=== PATIENT | female | born 1975 | race Caucasian/White ===

== ENCOUNTER → 2020-09-17 08:30 | Outpatient (CLI) | payer OTHER, SELFPAY ==
--- NOTE | 2020-09-17 08:35 | MM_ITS ---
PROCEDURE: MM DIG SCREENING MAMM BI W/CAD Digital Breast Tomosynthesis Included CLINICAL INDICATION: SCREENING MAMM There is no personal or family history of breast cancer. COMPARISON: This is a screening baseline exam, patient without complaints TECHNIQUE: Standard CC and MLO images and 3D Tomosynthesis was obtained. R2 CAD reviewed. FINDINGS: Prominent somewhat heterogenic fibroglandular densities are seen in the central portions of both breasts and the findings are fairly symmetrical and bilateral. There is a benign-appearing calcification left breast. There is a small benign-appearing nodular density upper-outer quadrant left breast with a small notch like contour suggesting a small intramammary node. There is no suspicious lesion and no suspicious microcalcifications. IMPRESSION: Moderate breast density with no suspicious lesions seen BI-RAD Category: 2 Benign Finding(s) FOLLOW-UP: 1YR 1 Year Follow-up (A letter has been sent to the patient regarding results of the study.) Dictated by: Dr. Neto Ugalde MD 09/18/2020 08:00 Dr. Neto Ugalde MD in [place] 09/18/2020 08:00
== END ==
PROVIDERS: PCP Nurse Practitioner Family; Visit Provider Nurse Practitioner Family
DX: Z12.31 Encounter for screening mammogram for malignant neoplasm of breast (principal)
CPT/HCPCS: 77063; 77067

== ENCOUNTER 2020-10-13 11:18 | Emergency (ER) | payer OTHER, SELFPAY ==
[2020-10-13 11:31] VITALS: BP 172/110; PULSE 82; RESP 16; TEMP 37; O2SAT 99; BMI 22.7
--- NOTE | 2020-10-13 12:06 | HMH.EDUTC ---
[facility] [place] Clinical Impression: Laceration Disposition: Home, Self-Care Condition on Discharge: Good Instructions: DI for Laceration Repair, DI for Laceration Repair -- Simple Additional Instructions: follow up in 10 days to have sutures removed watch for s/s of infection return if any issues Prescriptions: cephALEXin [Cephalexin 500mg Tab] 500 mg PO BID 7 Days #14 tab Prescription Printed Referrals: Deepika Delvalle [Primary Care Provider] - Time of Disposition: 12:13 Medical Decision Making - Rajat Inquiry Pt receiving controlled substance: No Vital Signs: 10/13/20 11:31 Temperature 98.6 F Temperature Source Oral Pulse Rate [Right] 82 Respiratory Rate 16 Blood Pressure [Right Arm] 172/110 H Blood Pressure Mean [Right Arm] 130 Blood Pressure Source [Right Arm] Automatic Cuff Blood Pressure Position [Right Arm] Sitting 02 Sat by Pulse Oximetry 99 [facility] [place] HPI - General Chief complaint: Urgent Treatment Center Stated complaint: Cut left hand Time Seen by Provider: 10/13/20 12:06 Mode of Arrival: Ambulatory Source of Information: Patient Limitations: No Limitations Description of Symptoms (Recalled from Triage Doc. by RN): pt has a laceration on her left palm about an inch long. she was washing dishes and was cut with a knife. edges are clean and appears that the cut is a few mm deep. HEENT Symptoms (Recalled from RN notes): No Resp Symptoms (Recalled from RN notes): No Skin Symptoms (Recalled from RN notes): Yes (L palm laceration) MS Symptoms (Recalled from RN notes): No Functional Status (Recalled from RN notes): na - History of Present Illness Provider Complaint: 45 yr old female presents for a laceration on her left palm about an inch long. she was washing dishes and was cut with a knife. edges are clean and appears that the cut is a few mm deep. - Related Data Previous Rx's Medication Instructions Recorded cephALEXin [Cephalexin 500mg Tab] 500 mg PO BID 7 Days #14 tab 10/13/20 - Worker's Comp Is this a Worker's Comp case?: No [facility] History - Hepatitis A Screen Drug use history?: No High risk sexual behaviors?: No History of sexually transmitted infection?: No Currently employed?: No Childcare worker?: No Do you have indoor plumbing?: Yes Do you have electricity?: Yes Attestation statement:: This patient has been screened for Hepatitis A risk factors. I have reviewed the patient's past medical history: Yes - Social History Smoking Status: Never smoker Alcohol Intake: never Occupational Status: employed ROS Obtained: Yes Systems reviewed as appropriate & no additional complaints - Constitutional Constitutional: Reports system reviewed and no additional complaints, except as docu, Denies fever(s) - Eyes Eyes: Reports system reviewed and no additional complaints, except as docu, Denies blurry vision - ENT Ears, Nose, Mouth, and Throat: Reports system reviewed and no additional complaints, except as docu, Denies sore throat - Cardiovascular Cardiovascular: Reports system reviewed and no additional complaints, except as docu, Denies chest pain - Respiratory Respiratory: Reports system reviewed and no additional complaints, except as docu, Denies coughing up blood - Gastrointestinal Gastrointestingal: Reports: system reviewed and no additional complaints, except as docu. Denies: nausea, vomiting - Genitourinary Female Genitourinary: Reports system reviewed and no additional complaints, except as docu - Musculoskeletal Musculoskeletal: Reports system reviewed and no additional complaints, except as docu, Denies joint pain - Integumentary/Breasts Skin/Breast: Reports system reviewed and no additional complaints, except as docu, Reports as per HPI, Reports other - Neurologic Neurologic: Reports system reviewed and no additional complaints, except as docu, Denies lack of coordination - Endocrine Endocrine: Reports system reviewed and no additional complain
[2020-10-13 12:26] VITALS: BP 159/103; PULSE 81; RESP 16; TEMP 36.6
== END 2020-10-13 12:26 | disposition home or self-care (01) ==
PROVIDERS: Emergency Provider Nurse Practitioner Family; PCP Nurse Practitioner Family
DX: S61.412A Laceration without foreign body of left hand, initial encounter (principal); W26.0XXA Contact with knife, initial encounter; Y92.010 Kitchen of single-family (private) house as the place of occurrence of the external cause; Z23 Encounter for immunization
CPT/HCPCS: 12001; 90471; 96372; 99202; G0463

== ENCOUNTER → 2021-01-02 12:08 | Outpatient (CLI) | payer OTHER, SELFPAY ==
--- NOTE | 2021-01-02 12:16 | XR_ITS ---
PROCEDURE: XR KNEE RT 3V CLINICAL INDICATION: PAIN IN RT KNEE COMPARISON: No exams were available for comparison FINDINGS: No fracture or dislocation. No lytic or blastic change. There is normal mineralization. The joint spaces are well-preserved. No significant degenerative/arthritic changes. No erosive changes evident. Other findings:Tiny joint effusion. IMPRESSION: Tiny joint effusion. No acute fracture or dislocation. Mild prepatellar soft tissue swelling. Dictated by: Rajendra Casarez MD 01/02/2021 12:33 Rajendra Casarez MD in [place] 01/02/2021 12:33
--- NOTE | 2021-01-02 12:16 | XR_ITS ---
PROCEDURE: XR TIBIA FIBULA RT 2V CLINICAL INDICATION: PAIN IN RT LOWER LEG COMPARISON: No exams were available for comparison FINDINGS: No fracture or dislocation. No lytic or blastic change. There is normal mineralization. The joint spaces are well-preserved. No significant degenerative/arthritic changes. No erosive changes evident. Other findings:Mild soft tissue swelling at the injury site. IMPRESSION: Mild soft tissue swelling with no acute fracture or dislocation. Dictated by: Rajendra Casarez MD 01/02/2021 12:34 Rajendra Casarez MD in [place] 01/02/2021 12:34
== END ==
PROVIDERS: PCP Nurse Practitioner Family; Visit Provider Anesthesiology Pain Medicine
DX: M25.561 Pain in right knee (principal); M79.661 Pain in right lower leg
CPT/HCPCS: 73562; 73590

== ENCOUNTER → 2023-03-25 07:57 | Outpatient (CLI) | payer OTHER, SELFPAY ==
--- NOTE | 2023-03-25 08:03 | MM_ITS ---
PROCEDURE INFORMATION: Exam: MG Bilateral Screening 3D Mammography Exam date and time: 03/25/2023 7:54 AM Age: 48 years old Clinical indication: Screening mammogram TECHNIQUE: Imaging protocol: Bilateral Screening tomosynthesis and 2D mammography including computer-aided detection (CAD) when performed. COMPARISON: MG MM DIG SCREENING MAMM BI W/CAD 09/17/2020 8:33 AM FINDINGS: MAMMOGRAPHY: Breast composition: The breast is heterogeneously dense, which may obscure small masses. Mass: Stable benign-appearing subcentimeter nodules are present in the bilateral breast. No new or morphologically suspicious nodule has developed to suggest malignancy. Architectural distortion: No new or suspicious architectural distortion. Calcifications: No new or suspicious calcifications are present Asymmetric density: No new or suspicious asymmetric density is present Skin thickening: None. Axillary adenopathy: None. IMPRESSION: No mammographic evidence of malignancy. Recommend annual screening mammography unless otherwise clinically indicated. ASSESSMENT: BI-RADS category 2: Benign
== END ==
PROVIDERS: PCP Nurse Practitioner Family; Visit Provider Nurse Practitioner Family
DX: Z12.31 Encounter for screening mammogram for malignant neoplasm of breast (principal)
CPT/HCPCS: 77063; 77067

== ENCOUNTER 2023-11-19 11:40 | Outpatient (CLI) | payer OTHER, SELFPAY ==
--- NOTE | 2023-11-19 11:48 | XR_ITS ---
FINAL REPORT TECHNIQUE: 5 views CLINICAL HISTORY: SPONDYLOSIS WITHOUT MYELOPATHY FINDINGS: There is no fracture present. There is no malalignment. There are no significant degenerative changes. IMPRESSION: No acute process. Reviewed, Interpreted and Dictated by William Plaza MD Transcribed by Nicole Burks Authenticated and [facility]
== END 2023-11-19 23:59 | disposition home or self-care (01) ==
LOC: RAD 11:42
PROVIDERS: PCP Nurse Practitioner Family; Visit Provider Pain Medicine Interventional Pain Medicine
DX: M47.816 Spondylosis without myelopathy or radiculopathy, lumbar region (principal); M54.16 Radiculopathy, lumbar region
CPT/HCPCS: 72110

== ENCOUNTER 2025-03-04 13:03 | Inpatient (IN) | payer OTHER, SELFPAY ==
--- OUTSIDE RECORDS SUMMARY | 2020-12-25 13:31 | XMS_ITS | Encounter Summary ---
Author Organization [facility] Address [address] [place] [address] Care Team Providers Care Straight Pin Making Machine Operator Name Role Phone Deepika Delvalle APRN Primary Care Provider Reason for Visit * Diagnostic Imaging (Routine) - Closed Specialty Diagnoses / Procedures Referred By Rayshawn t Referred To Contact Radiology Diagnoses Simple goiter Procedures US Thyroid Gemma Catalan MD [address] [place] [address] Phone: tel: fax: [facility] [address] [place] [address] Phone: tel: fax: Referral ID Status Reason Start Date Expiration Date Visits Re quested Visits Authorized [id number] Closed 12/25/2020 12/25/2021 1 1 Encounter Details Date Type Department Care Team (Late st Contact Info) Description 12/25/2020 1:31 PM EDT Hospital Encounter [facility] [address] [place] [address] Social History Tobacco Use Types Packs/Day Years Used Date Smoking Tobacco: Never Passive Smoke Exposure: Never Smokeless Tobacco: Never Alcohol Use Standard Drinks/Week Comments No 0 (1 standard drink = 0.6 oz pur e alcohol) Comments No Sex and Gender Information Value Date Recorded Sex Assigned at Not on file Legal Sex Female 11:50 AM EDT Gender Identity Not on file Sexual Orientation Not on file documented as of this encounter Plan of Treatment Upcoming Encounters Date Type Department Care Team (Late st Contact Info) Description 10/10/2025 9:30 AM EDT Office Visit [facility] [address] [place] [id number] Rajendra Brito MD [address] [place] [address] 11/21/2025 9:30 AM EDT Office Visit [facility] [address] [place] [address] Gemma Catalan MD [address] [facility] [address] [place] [address] documented as of this encounter Goals Goal Patient Goal Type Associated Problems Recent Progress Patient-Stated? Author Specialty Pharmacy General Goal General On track( 025 10:47 AM EDT) Joleen Beebe, PharmD Note: Decrease in frequency and severity of migraines 01/02/22 - next step is Botox, but patient has not decided if she want to pursue that option, now that headaches are somewhat improving (has been under stress lately) 11/11/22 - headaches stable for past several months. On Average, Reduce: Frequency of migraines to < 15 per month. Symptom severity by 50 % within 4 hours of taking acute therapy. (Rizatriptan) Duration of migraines to < 4 hours. Baseline Values/Notes on Enrollment Frequency: daily Symptom Severity: moderate to severe Duration: 4 hours Date of Reassessment Notes on Progress Toward Above Goals 08/03/24 Dose was a week late last month, otherwise down to 5/month, 2 hour duration 01/24/25 Headaches well controlled. Down from daily to about 2 weekly documented as of this encounter Procedures Procedure Name Priority Date/Time Associated Diagnosis Comments US THYROID Routine 12/25/2020 1:31 PM EDT Thyromegaly documented in this encounter Results * US Thyroid (12/25/2020 1:31 PM EDT) Narrative SYSTEMGENERATED, DOCUMENTATION - 12/25/2020 1:31 PM EDT Please see performing physician's note for result. us Gemma Catalan MD [facility] ORDERABLES Final Result documented in this encounter Visit Diagnoses Not on filedocumented in this encounter Care Teams Straight Pin Making Machine Operator Relationship Specialty Start Date End Date Deepika Delvalle APRN [address] [place] [address] PCP - General 04/03/15 documented as of this encounter
--- OUTSIDE RECORDS SUMMARY | 2020-12-25 13:31 | XMS_ITS | Encounter Summary ---
Author Organization [facility] Address [address] [place] [address] Care Team Providers Care Call Center Analyst Name Role Phone Deepika Delvalle APRN Primary Care Provider Reason for Visit * Diagnostic Imaging (Routine) - Closed Specialty Diagnoses / Procedures Referred By Rayshawn t Referred To Contact Radiology Diagnoses Simple goiter Procedures US Thyroid Gemma Catalan MD [address] [place] [address] Phone: tel: fax: [facility] [address] [place] [address] Phone: tel: fax: Referral ID Status Reason Start Date Expiration Date Visits Re quested Visits Authorized [id number] Closed 12/25/2020 12/25/2021 1 1 Encounter Details Date Type Department Care Team (Late st Contact Info) Description 12/25/2020 1:31 PM EDT Hospital Encounter [facility] [address] [place] [address] Social History Tobacco Use Types [...] Description 10/10/2025 9:30 AM EDT Office Visit [facility] [address] [place] [phone] Rajendra Brito MD [address] [place] [address] 11/21/2025 9:30 AM EDT Office Visit [facility] [address] [place] [address] Gemma Catalan MD [address] [facility] [address] [place] [address] documented as of this encounter [...] note for result. us Gemma Catalan MD [facility] ORDERABLES Final Result documented in this encounter Visit Diagnoses Not on filedocumented in this encounter Care Teams Call Center Analyst Relationship Specialty Start Date End Date Deepika Delvalle APRN [address] [place] [address] PCP - General 04/03/15 documented as of this encounter
--- OUTSIDE RECORDS SUMMARY | 2024-12-14 04:45 | XMS_ITS ---
Author Organization [facility] Address [address] [place] [address] Care Team Providers Care Internet Database Specialist Name Role Phone Deepika Saeed APRN Primary Care Provider Un available Oscar Lewis II Unavailable zSelf, Referral Unavailable Unavailable Octavio Martinez Unavailable [phone] Allergies Allergen (clinical drug ingredient) Drug/Non Drug Allergy documented on EMR Reaction Allergy Type Onset Date Status naproxen stomach upset Drug Allergy Act gera Naproxen Sodium DS stomach upset Drug Allergy Active REASON FOR VISIT 2 Month Follow Up Medications Medication SIG (Take, Route, Frequency, Duration) Notes Start Date End Date Status montelukast 10 mg 1 tab(s) orally once a day; Duration: 30 day(s) 07/10/2022 Active pantoprazole 40 mg 1 tab(s) orally once a day; Duration: 30 day(s) 07/10/2022 Active amLODIPine 5 mg 1 tab(s) orally once a day; Duration: 30 day(s) 07/10/2022 Active escitalopram 10 mg 1 tab(s) orally once a day; Duration: 30 day(s) 11/26/2022 Active traZODone 50 mg as directed orally 11/26/2022 Active Diclofenac Sodium Topical 1% 2-4 grams to affected area applied topically 4 times a day; Duration: 30 day(s) Active levocetirizine 5 mg 1 tab(s) orally once a day (in the evening); Duration: 30 day(s) Active ciclopirox topical 8% 1 ashlie applied topically once a day; Duration: 24 week(s) 07/10/2022 Active Acetaminophen-Hydrocodon e Bitartrate 325 mg-7.5 mg 1 tab(s) orally 3 times a day; Duration: 28 days DO NOT FILL SOONER THAN 28 DAYS, (OK TO FILL EARLY, ONLY IF CLOSED) Active Cyclobenzaprine Hydrochloride 10 mg 1 tab(s) orally 3 times a day; Duration: 30 day(s) Active gabapentin 600 mg 1 tab(s) orally 2 times a day; Duration: 28 days DO NOT FILL SOONER THAN 28 DAYS, (OK TO FILL EARLY, ONLY IF CLOSED) Active Acetaminophen-Hydrocodon e Bitartrate 325 mg-7.5 mg 1 tab(s) orally 3 times a day; Duration: 28 days DO NOT FILL SOONER THAN 28 DAYS, (OK TO FILL EARLY, ONLY IF CLOSED) Active Encounters Encounter Location Date Provider Diagnosis [facility] [address] [place] [address] 12/14/2024 Octavio Martinez Migraine without aura, not intractable, without status migrainosus G43.009 ; Other retirement (current) drug therapy Z79.899 ; Spondylosis without myelopathy or radiculopathy, cervical region M47.812 ; Spondylosis without myelopathy or radiculopathy, lumbar region M47.816 ; Pain in right knee M25.561 and Pain in right lower leg M79.661 Assessments Encounter Date Diagnosis (ICD Code) Assessment Notes Treatment Notes Treatment Clinical Notes Section Notes 12/14/2024 Migraine without aura, not intractable, without status migrainosus (ICD-10 - G43.009) 08/23/2024 Alicia presents today for follow up visit and medication refill. Pain generators include lumbar and cervical spondylosis, lumbar radiculopathy, chronic migraine headaches, and thoracic outlet syndrome on the left. Pt completed HEP for 6 weeks and is still doing them. Continues to have low back and bilateral feet pain. Rates her pain a 5/10 scale. Weather changes increases pain. She continues to receive 50% pain reduction for approximately four hours with the Hydrocodone. She continues to take flexeril, gabapentin, and [place] with some relief. Denies adverse side effects or recent medical issues. Nhung and VINCENTS reviewed and are compliant. Refills and F/U in 2 months. 12/14/2024 Other terminal superintendent (current) drug therapy (ICD-10 - Z79.899) Primary pain generator is Lumbar Spondylosis, secondary pain generator is Cervical Spondylosis, Lumbar Radiculopathy, Migraine PAYTON's, chronic pain syndrome, thoracic outlet compression syndrome 08/23/2024 1 Refill [place] 7.5/325mg TID 2 Refill GBP 600mg BID 3 Refill Flexeril 10mg TID 4 Refill Voltaren gel 5 F/U 2 months 08/23/2024October presents today for follow up visit and medication refill. Pain generators include lumbar and cervical spondylosis, lumbar radiculopathy, chronic migraine headaches, and thoracic outlet syndrome on the left. Pt completed HEP for 6 weeks and is still doing them. Continues to have low back and bilateral feet pain. Rates her pain a 5/10 scale. Weather changes increases pain. She continues to receive 50% pain reduction for approximately four hours with the Hydrocodone. She continues to take flexeril, gabapentin, and [place] with some relief. Denies adverse side effects or recent medical issues. Nhung and VINCENTS reviewed and are compliant. Refills and F/U in 2 months. 12/14/2024 Spondylosis without myelopathy or radiculopathy, cervical region (ICD-10 - M47.812) 08/23/2024October presents today for follow up visit and medication refill. Pain generators include lumbar and cervical spondylosis, lumbar radiculopathy, chronic migraine headaches, and thoracic outlet syndrome on the left. Pt completed HEP for 6 weeks and is still doing them. Continues to have low back and bilateral feet pain. Rates her pain a 5/10 scale. Weather changes increases pain. She continues to receive 50% pain reduction for approximately four hours with the Hydrocodone. She continues to take flexeril, gabapentin, and [place] with some relief. Denies adverse side effects or recent medical issues. Nhung and VINCENTS reviewed and are compliant. Refills and F/U in 2 months. 12/14/2024 Spondylosis without myelopathy or radiculopathy, lumbar region (ICD-10 - M47.816) 08/23/2024October presents today for follow up visit and medication refill. Pain generators include lumbar and cervical spondylosis, lumbar radiculopathy, chronic migraine headaches, and thoracic outlet syndrome on the left. Pt completed HEP for 6 weeks and is still doing them. Continues to have low back and bilateral feet pain. Rates her pain a 5/10 scale. Weather changes increases pain. She continues to receive 50% pain reduction for approximately four hours with the Hydrocodone. She continues to take flexeril, gabapentin, and [place] with some relief. Denies adverse side effects or recent medical issues. Nhung and VINCENTS reviewed and are compliant. Refills and F/U in 2 months. 12/14/2024 Pain in right knee (ICD-10 - M25.561) 08/23/2024October presents today for follow up visit and medication refill. Pain generators include lumbar and cervical spondylosis, lumbar radiculopathy, chronic migraine headaches, and thoracic outlet syndrome on the left. Pt completed HEP for 6 weeks and is still doing them. Continues to have low back and bilateral feet pain. Rates her pain a 5/10 scale. Weather changes increases pain. She continues to receive 50% pain reduction for approximately four hours with the Hydrocodone. She continues to take flexeril, gabapentin, and [place] with some relief. Denies adverse side effects or recent medical issues. Nhung and VINCENTS reviewed and are compliant. Refills and F/U in 2 months. 12/14/2024 Pain in right lower leg (ICD-10 - M79.661) 08/23/2024October presents today for follow up visit and medication refill. Pain generators include lumbar and cervical spondylosis, lumbar radiculopathy, chronic migraine headaches, and thoracic outlet syndrome on the left. Pt completed HEP for 6 weeks and is still doing them. Continues to have low back and bilateral feet pain. Rates her pain a 5/10 scale. Weather changes increases pain. She continues to receive 50% pain reduction for approximately four hours with the Hydrocodone. She continues to take flexeril, gabapentin, and [place] with some relief. Denies adverse side effects or recent medical issues. Nhung and VINCENTS reviewed and are compliant. Refills and F/U in 2 months. Plan Of Treatment Medication Medication Name Sig Start Date Stop Date Notes Diclofenac Sodium Topical 1% 2-4 grams to affected area applied topically 4 times a day; Duration: 30 day(s) Acetaminophen-Hydrocodone Bitartrate 325 mg-7.5 mg 1 tab(s) orally 3 times a day; Duration: 28 days DO NOT FILL SOONER THAN 28 DAYS, (OK TO FILL EARLY, ONLY IF CLOSED) Cyclobenzaprine Hydrochloride 10 mg 1 tab(s) orally 3 times a day; Duration: 30 day(s) gabapentin 600 mg 1 tab(s) orally 2 times a day; Duration: 28 days DO NOT FILL SOONER THAN 28 DAYS, (OK TO FILL EARLY, ONLY IF CLOSED) Acetaminophen-Hydrocodone Bitartrate 325 mg-7.5 mg 1 tab(s) orally 3 times a day; Duration: 28 days DO NOT FILL SOONER THAN 28 DAYS, (OK TO FILL EARLY, ONLY IF CLOSED) Treatment Notes Assessment Notes Other terminal superintendent (current) drug therapy Primary pain generator is Lumbar Spondylosis, secondary pain generator is Cervical Spondylosis, Lumbar Radiculopathy, Migraine PAYTON's, chronic pain syndrome, thoracic outlet compression syndrome 08/23/2024 1 Refill [place] 7.5/325mg TID 2 Refill GBP 600mg BID 3 Refill Flexeril 10mg TID 4 Refill Voltaren gel 5 F/U 2 months Pending Test Test Name Order Date Urine Test ANALYZER 12/14/2024 Next Appt Details Follow Up: 2 Months, Reason: Provider Name:Oscar foreman, 04/19/2025 09:45:00 AM, [address], [address], [place], [address], Procedure Notes * Category Sub-Category Detail Notes PROVIDER ENCOUNTER AND OVERSIGHT Consult Performed By: Salvador RENTERIA-Guillermina FERNANDEZ 08/23/2024 9:41:16 AM > collaborated treatment plan with Oscar trevino M.D., supervising physician who was present in office during consultation Progress Notes * October FDOB:1975 (50 yo F)Acc No.[id number]:12/14/2024 FollowUP Patient: Cassidy BRADYOctober Provider: Yaw Martinez MD :1975 A ge:49 Y S ex:Female Date:12/14/2024 Address:[address] [place], [place] [address] [address] [phone] Pcp:Deepika Delvalle APRN - Subjective: * Chief Complaints: * 1 . 2 Month Follow Up. * HPI: T ODAYS PAIN EVALUATION: 49 year old female presents with c/o MEDICATION FOLLOW UP: T he patient is currently prescribed [place] 7.5/325 mg TID and Gabapentin 600mg BID which provides 50% relief of pain symptoms for 4 hours. The last dose was taken 0 08/23/2024 G BP was taken 06/20/2024 D juanjose side effects. CURRENT PAIN SYMPTOMS: L ocation of Worst Pain: M id-Back, A dditional Location of Pain: F eet, P ain Frequency: c onstant, P ain Description: a eleonora, stabbing, tingling, A verage Pain Score VAS: 5 , P ain Exacerbation: staying g in one position standing, P ain Alleviation: m edications hot tub, A DL/Quality of Life Interference: d aily chores, mood movement. P AIN MANAGEMENT TREATMENT HISTORY: IMAGING HISTORY: 0 01/02/2021 XR Tibia Fibula RT:Mild soft tissue with no acute fracture or dislocation. 0 01/02/2021 XR RT KNEE:Tiny joint effusion. No acute fracture or dislocation. Mild prepatellar soft tissue swelling. 0 11/19/2023 XR LUMBAR-No acute process . P REVIOUS INJECTION\PROCEDURE HISTORY:? D enmaldonado . P HYSICAL/AQUA THERAPY/DME/OTHER HISTORY: 2 020: Massage Therapy 2 021: Physical therapy 2 024 Patient continues a prescribed home exercise program 3-5 times per week (stretches and mild yoga) as of 11/12/2023 . P ERTINENT SURGICAL EVALUATIONS/SPECIALIST CONSULTS Bruna Nichole, neurology, [place], [place]. Dr. Melo, podiatry, for Tarsal Tunnel Syndrome . P REVIOUS PAIN CLINIC CARE: Bruna sow . Dusty BARRON OF INITIAL EVALUATION: 1 New patient consult referred by Self f or chrtonic back pain onset in 2004 without incident Alicia presents for follow up. Primary pain generator is Lumbar Spondylosis, secondary pain generator is Cervical Spondylosis, Lumbar Radiculopathy, Migraine PAYTON's, chronic pain syndrome. Continues to use [place] 5mg TID and GBP 600mg TID with some relief. No side effects or impairments noted with the medication other than weight gain from the gabapentin. Interested in re-scheduling the MBB for her Lumbar spine. Will schedule this at checkout. Patient denies any recent hospitalizations, surgeries, or other consults. NHUNG report reviewed and is appropriate. Prior UDS reviewed. No prior abnormal urine drug screens noted. Discussed with patient the benefits and risk associated with taking pain medication inluding but not limited to respiratory depression and dependency issues. Patient verbalized understanding of these potential problems. C OMPLIANCE: RISK ASSESSMENT AND STRATIFICATION: R ISK GROUP: MODERATE RISK muscle relaxer Depression . U RINE DRUG TESTIN 09/17/2023 Screen Expected 0 11/12/2023 Screen Expected 0 01/06/2024 Screen Expected 0 02/29/2024 Screen Expected Definitive Expected 1 Screen Expected 1 08/22/2023 Screen Expected 0 08/23/2024 Screen Expected Sent for 6 month Definitive . M ONITORING: M orphine Equivalent (MME): 20 mg K ASPER reviewed today and appropriate . T ESTING/RISK ASSESSMENTS O RT Score/Result: 1 (depression). * ROS: G ENERAL: Fever D enies. H EENT: Sore throat D enies. R ESPIRATORY: Negative for: r espiratory issues. G ASTROINTESTINAL: Negative for abdominal issues. G ENITOURINARY: Negative for genitourinary issues. M USCULOSKELETAL: Positive for b ack pain. foot pain. knee pain. ? N EUROLOGICAL: Positive for tingling. P SYCHIATRIC: Negative for d epression anxiety. E NDOCRINE: Negative for e ndocrine issues. * Medical History: M igraine Headaches -1992 / managed by , HTN -2004 / [facility], Reflux -1999 / managed by Dr.Karen Salinas, Depression-1997 / managed by [facility], Anxiety-1997 / managed by Deepika [facility] * Surgical History: c holecystectomy / Psychiatric / (OP) 2013, Hysterectomy / [facility] / 4 day stay 2012, LT foot x2 / Psychiatric / (OP)x2 2004. * Hospitalization/Major Diagno stic Procedure: D enies Past Hospitalization. * Family History: N on-Contributory. Denies Family History of Substance Abuse. * Social History: S moking: no . P ersonal History Drug Use: No. Alcohol: No. * Medications: T aking Diclofenac Sodium Topical 1% gel 2-4 grams to affected area applied topically 4 times a day , Taking levocetirizine 5 mg tablet 1 tab(s) orally once a day (in the evening) , Taking ciclopirox topical 8% solution 1 ashlie applied topically once a day , Taking amLODIPine 5 mg tablet 1 tab(s) orally once a day , Taking montelukast 10 mg tablet 1 tab(s) orally once a day , Taking pantoprazole 40 mg delayed release tablet 1 tab(s) orally once a day , Taking escitalopram 10 mg tablet 1 tab(s) orally once a day , Taking traZODone 50 mg tablet as directed orally , Taking gabapentin 600 mg tablet 1 tab(s) orally 2 times a day , Notes to Pharmacist: DO NOT FILL SOONER THAN 28 DAYS, (OK TO FILL EARLY, ONLY IF CLOSED), Taking Acetaminophen-Hydrocodone Bitartrate 325 mg-7.5 mg tablet 1 tab(s) orally 3 times a day , Notes to Pharmacist: OCTOBER 2024 RX, DO NOT FILL SOONER THAN 28 DAYS, (OK TO FILL EARLY, ONLY IF CLOSED), Taking Acetaminophen-Hydrocodone Bitartrate 325 mg-7.5 mg tablet 1 tab(s) orally 3 times a day , Notes to Pharmacist: NOVEMBER 2024 RX, DO NOT FILL SOONER THAN 28 DAYS, (OK TO FILL EARLY, ONLY IF CLOSED), Taking Cyclobenzaprine Hydrochloride 10 mg tablet 1 tab(s) orally 3 times a day , Medication List reviewed and reconciled with the patient * Allergies: n aproxen: stomach upset - Side Effects, Naproxen Sodium DS: stomach upset - Side Effects. Objective: * Vitals: * Examination: G eneral Examination: Nurse/Director Of Neurology: Amelie burtonMA-[facility])Fay 08/23/2024 9:32:47 AM > . General Appearance: w ell-nourished individual in no acute distress. The patient is alert and oriented and cooperative for evaluation. HEENT: unremarkable. Neck, Thyroid : supple. Heart: tachycardia. Neurologic Exam: P atient ambulates with an antalgic gait, pitched forward. Skin normal, no rash. Extremities: R T knee edema, TTP patella and jointlines; ecchymosis on anterior lower leg. C ervical Spine/Neck: Motor strength: m otor strength symmetric and 5/5, DTRs symmetric and 2+/4. Paraspinal muscle spasm: D iffuse tenderness with spasms noted.. Sensations: s ensation intact to light palpation, FROM, pulses +2. Trapezius Tenderness a bsent bilaterally. Vertebral spine tenderness: t enderness over the upper facets bilaterally.. Range of motion of neck: n ormal in all directions. Inspection: w arm, dry, no surgical scars. L umbar Spine/Lower Back: Palpation: d iffuse tenderness throughout lumbar region, most particularly over lower lumbar facet joints. Spasms Absent. Inspection: n ormal lumbar lordosis,no scars. Gait: a ntalgic. Straight leg raising test: n egative bilaterally. Sensory exam: s ensation intact to light palpation, no edema or discoloration noted.. Motor system: m otor strength 5/5 in all muscle groups bilaterally.. Range of motion: R OM moderately limited ROM, moderate pain induced, Hyperextension/Pain with facet loading.. Assessment: * Assessment: 1. O ther retirement (current) drug therapy - Z79.899 (Primary) 2 . M igraine without aura, not intractable, without status migrainosus - G43.009 3 . S pondylosis without myelopathy or radiculopathy, cervical region - M47.812 4 . S pondylosis without myelopathy or radiculopathy, lumbar region - M47.816 5 . P ain in right knee - M25.561 6 . P ain in right lower leg - M79.661 08/23/2024October presents today for follow up visit and medication refill. Pain generators include lumbar and cervical spondylosis, lumbar radiculopathy, chronic migraine headaches, and thoracic outlet syndrome on the left. Pt completed HEP for 6 weeks and is still doing them. Continues to have low back and bilateral feet pain. Rates her pain a 5/10 scale. Weather changes increases pain. She continues to receive 50% pain reduction for approximately four hours with the Hydrocodone. She continues to take flexeril, gabapentin, and [place] with some relief. Denies adverse side effects or recent medical issues. Nhung and UDS reviewed and are compliant. Refills and F/U in 2 months. Plan: * Treatment: * Procedures: Shira RDZ ENCOUNTER AND OVERSIGHT: Consult Performed By: Guillermina Hahn (APRN-LEX) 08/23/2024 9:41:16 AM > . c ollaborated treatment plan with Bruna Lewis M.D., supervising physician who was present in office during consultation. * Follow Up: 2 Months * * Electronic signature of Juan Martinez M.D. on 03/06/2025 at 08:50 AM CDT Sign off status: Pending * Provider: Yaw Martinez MD Date: 0 12/14/2024 Generated for Tli delfin/Hollie/Suellensmlesly on: 0 03/06/2025 08:50 AM CDT History and Physical Notes * HPI (History of Present Illness) Category Sub-Category Detail Notes Category Not es PAIN MANAGEMENT TREATMENT HISTORY SUMMARY OF INITIAL EVALUATION: 04/30/2018 New patient consult referred by Self for chrtonic back pain onset in 2004 without incident Alicia presents for follow up. Primary pain generator is Lumbar Spondylosis, secondary pain generator is Cervical Spondylosis, Lumbar Radiculopathy, Migraine PAYTON's, chronic pain syndrome. Continues to use [place] 5mg TID and GBP 600mg TID with some relief. No side effects or impairments noted with the medication other than weight gain from the gabapentin. Interested in re-scheduling the MBB for her Lumbar spine. Will schedule this at checkout. Patient denies any recent hospitalizations, surgeries, or other consults. NHUNG report reviewed and is appropriate. Prior UDS reviewed. No prior abnormal urine drug screens noted. Discussed with patient the benefits and risk associated with taking pain medication inluding but not limited to respiratory depression and dependency issues. Patient verbalized understanding of these potential problems IMAGING HISTORY: 01/02/2021 XR Tibia Fibula RT:Mild soft tissue with no acute fracture or dislocation. 01/02/2021 XR RT KNEE:Tiny joint effusion. No acute fracture or dislocation. Mild prepatellar soft tissue swelling. 11/19/2023 XR LUMBAR-No acute process PHYSICAL/AQUA THERAPY/DME/OT HER HISTORY: 2020: Massage Therapy 2020: Physical therapy 2023 Patient continues a prescribed home exercise program 3-5 times per week (stretches and mild yoga) as of 11/12/2023 PERTINENT SURGICAL EVALUATIONS/SPECIALIST CONSULTS Dr. Nichole, neurology, [place], [place]. Dr. Melo, podiatry, for Tarsal Tunnel Syndrome PREVIOUS INJECTION\PROCEDURE HISTORY: Denies PREVIOUS PAIN CLINIC CARE: Denies COMPLIANCE RISK ASSESSMENT AND STRATIFICATI ON: RISK GROUP: MODERATE RISK muscle relaxer Depression URINE DRUG TESTIN09/17/2023 Screen Expected 11/12/2023 Screen Expected 01/06/2024 Screen Expected 02/29/2024 Screen Expected Definitive Expected 04/26/2024 Screen Expected 06/21/2024 Screen Expected 08/23/2024 Screen Expected Sent for 6 month Definitive MONITORING: Morphine Equivalent (MME): 20 mg NHUNG reviewed today and appropriate TESTING/RISK ASSESSMENTS ORT Score/Result: 1 (depression) TODAYS PAIN EVALUATION MEDICATION FOLLOW UP: The patient is currently prescribed [place] 7.5/325 mg TID and Gabapentin 600mg BID which provides 50% relief of pain symptoms for 4 hours. The last dose was taken 08/23/2024 GBP was taken 06/20/2024 Denies side effects CURRENT PAIN SYMPTOMS: Location of Worst Pain:: Mid-Back Additional Location of Pain:: Feet Pain Frequency:: constant Pain Description:: aching, stabbing, tin gling Average Pain Score VAS:: 5 Pain Exacerbation:: staying g in one pos ition standing Pain Alleviation:: medications hot tub ADL/Quality of Life Interfer ence:: daily chores, mood movement PROCEDURAL FOLLOW UP: Examination Category Sub-Category Detail Notes Category Not es General Examination HEENT: unremarkable Neck, Thyroid : supple Heart: tachycardia Extremities: RT knee edema, TTP p atella and jointlines; ecchymosis on anterior lower leg General Appearance: well-nourished indiv idual in no acute distress. The patient is alert and oriented and cooperative for evaluation Skin normal, no rash Neurologic Exam: Patient ambulates wi th an antalgic gait, pitched forward Nurse/Director Of Neurology: Rachelle Russo (MA-Lex) 08/23/2024 9:32:47 AM > Cervical Spine/Neck Vertebral spine tenderness: tenderness over the upper facets bilaterally. Paraspinal muscle spasm: Diffuse tendern ess with spasms noted. Range of motion of neck: normal in all d irections Trapezius Tenderness absent bilaterally Sensations: sensation intact to light palpation, FROM, pulses +2 Motor strength: motor strength symme tric and 5/5, DTRs symmetric and 2+/4 Inspection: warm, dry, no surgic al scars Lumbar Spine/Lower Back Straight leg raising test: neg ative bilaterally Motor system: motor strength 5/5 i n all muscle groups bilaterally. Sensory exam: sensation intact to light palpation, no edema or discoloration noted. Gait: antalgic Range of motion: ROM moderately limit ed ROM, moderate pain induced, Hyperextension/Pain with facet loading. Inspection: normal lumbar lordos is,no scars Palpation: diffuse tenderness t hroughout lumbar region, most particularly over lower lumbar facet joints. Spasms Absent
--- OUTSIDE RECORDS SUMMARY | 2024-12-14 04:45 | XMS_ITS ---
Author Organization [facility] ex Address [address] [place] [address] Care Team Providers Care Oil Well Drilling Manager Name Role Phone Deepika Saeed APRN Primary Care Provider Un available Oscar Lewis II Unavailable zSelf, Referral Unavailable Unavailable Octavio Martinez Unavailable [phone] Allergies Allergen (clinical drug ingredient) Drug/Non Drug [...] Diagnosis [facility] [address] [place] [address] 12/14/2024 Octavio Martinez Migraine without aura, not intractable, without status migrainosus G43.009 ; Other halfway (current) drug therapy Z79.899 ; Spondylosis without [...] She continues to take flexeril, gabapentin, and [place] with some relief. Denies adverse side effects or recent medical issues. Nhung and VINCENTS reviewed and are compliant. Refills and F/U in 2 months. 12/14/2024 Other intermediate designer (current) drug therapy (ICD-10 - Z79.899) Primary pain generator is Lumbar Spondylosis, secondary pain generator is Cervical Spondylosis, Lumbar Radiculopathy, Migraine PAYTON's, chronic pain syndrome, thoracic outlet compression syndrome 08/23/2024 1 Refill [place] 7.5/325mg TID 2 Refill GBP 600mg BID [...] She continues to take flexeril, gabapentin, and [place] with some relief. Denies adverse side effects [...] She continues to take flexeril, gabapentin, and [place] with some relief. Denies adverse side effects [...] She continues to take flexeril, gabapentin, and [place] with some relief. Denies adverse side effects [...] She continues to take flexeril, gabapentin, and [place] with some relief. Denies adverse side effects [...] She continues to take flexeril, gabapentin, and [place] with some relief. Denies adverse side effects [...] IF CLOSED) Treatment Notes Assessment Notes Other intermediate designer (current) drug therapy Primary pain generator is Lumbar Spondylosis, secondary pain generator is Cervical Spondylosis, Lumbar Radiculopathy, Migraine PAYTON's, chronic pain syndrome, thoracic outlet compression syndrome 08/23/2024 1 Refill [place] 7.5/325mg TID 2 Refill GBP 600mg BID 3 Refill Flexeril 10mg TID 4 Refill Voltaren gel 5 F/U 2 months Pending Test Test Name Order Date Urine Test ANALYZER 12/14/2024 Next Appt Details Follow Up: 2 Months, Reason: Provider Name:Oscar foreman, 04/19/2025 09:45:00 AM, [address], [address], [place], [address], Procedure Notes * Category Sub-Category Detail Notes PROVIDER ENCOUNTER AND OVERSIGHT Consult Performed By: Salvador RENTERIA-Guillermina FERNANDEZ 08/23/2024 9:41:16 AM > collaborated treatment plan with Oscar trevino M.D., supervising physician who was present in office during consultation Progress Notes * October FDOB:1975 (50 yo F)Acc No.[id number]:12/14/2024 FollowUP Patient: Cassidy BRADYOctober Provider: Yaw Martinez MD :1975 A ge:49 Y S ex:Female Date:12/14/2024 Address:[address] [place], [place] [address] [address] [phone] Pcp:Deepika Delvalle APRN - Subjective: * Chief Complaints: * 1 . 2 Month Follow Up. * HPI: T ODAYS PAIN EVALUATION: 49 year old female presents with c/o MEDICATION FOLLOW UP: T he patient is currently prescribed [place] 7.5/325 mg TID and Gabapentin 600mg BID [...] ERTINENT SURGICAL EVALUATIONS/SPECIALIST CONSULTS Bruna Nichole, neurology, [place], [place]. Dr. Melo, podiatry, for Tarsal Tunnel [...] PAYTON's, chronic pain syndrome. Continues to use [place] 5mg TID and GBP 600mg TID with [...] HTN -2004 / [facility], Reflux -1999 / managed by Dr.Karen Salinas, Depression-1997 / [facility], Anxiety-1997 / managed by Deepika HOLBROOK-. * Surgical History: c holecystectomy / [facility] / (OP) 2013, Hysterectomy / [facility] / 4 day stay 2012, LT foot x2 / [facility] / (OP)x2 2004. * Hospitalization/Major Diagno stic [...] * Vitals: * Examination: G eneral Examination: Nurse/Human Resources Psychologist: Amelie burtonMA-Mitchell)Fay 08/23/2024 9:32:47 AM > . [...] loading.. Assessment: * Assessment: 1. O ther halfway (current) drug therapy - Z79.899 (Primary) 2 [...] She continues to take flexeril, gabapentin, and [place] with some relief. Denies adverse side effects [...] Electronic signature of Juan Martinez M.D. on 03/04/2025 at 12:26 PM CDT Sign off status: Pending * Provider: Yaw Martinez MD Date: 0 12/14/2024 Generated for Tli delfin/Hollie/Suellensmlesly on: 0 03/04/2025 12:26 PM CDT History and Physical Notes * HPI [...] PAYTON's, chronic pain syndrome. Continues to use [place] 5mg TID and GBP 600mg TID with [...] PERTINENT SURGICAL EVALUATIONS/SPECIALIST CONSULTS Dr. Nichole, neurology, [place], [place]. Dr. Melo, podiatry, for Tarsal Tunnel [...] FOLLOW UP: The patient is currently prescribed [place] 7.5/325 mg TID and Gabapentin 600mg BID [...] wi th an antalgic gait, pitched forward Nurse/Human Resources Psychologist: Rachelle Russo (MA-Lex) 08/23/2024 9:32:47 AM > [...]
--- OUTSIDE RECORDS SUMMARY | 2025-02-21 05:00 | XMS_ITS ---
Author Organization [facility] Address [address] [place] [address] Care Team Providers Care Postdoctoral Fellow Name Role Phone Deepika Saeed APRN Primary Care Provider Un available Osacr Lewis II Unavailable zSelf, Referral Unavailable Unavailable Allergies Allergen (clinical drug ingredient) Drug/Non Drug Allergy documented on EMR Reaction Allergy Type Onset Date Status naproxen stomach upset Drug Allergy Act gera Naproxen Sodium DS stomach upset Drug Allergy Active Results Component Value Reference Range Notes Urine Test ANALYZER Reviewed date:02/21/2025 09:53:57 AM Interpretation:+HYD Performing Lab: Notes/Report: +HYD Heroin Metabolite (6AM) NEG Amphetamine (AMP) NEG Benzodiazepine (MARIAM) NEG Buprenorphine NEG Cocaine (SHANE) NEG Hydrocodone (HYD) POS Methadone (MTD) NEG Opiate (OPI) NEG Oxycodone (OXY) NEG REASON FOR VISIT Mid back pain, Low Back Pain Medications Medication SIG (Take, Route, Frequency, Duration) Notes Start Date End Date Status Cyclobenzaprine Hydrochloride 10 mg 1 tab(s) orally 3 times a day; Duration: 30 day(s) Active ciclopirox topical 8% 1 ashlie applied topically once a day; Duration: 24 week(s) 07/10/2022 Active levocetirizine 5 mg 1 tab(s) orally once a day (in the evening); Duration: 30 day(s) Active levothyroxine 88 mcg (0.088 mg) 1 tab(s) orally once a day; Duration: 30 day(s) Active Diclofenac Sodium Topical 1% 2-4 grams to affected area applied topically 4 times a day; Duration: 30 days Active Acetaminophen-Hydrocodon e Bitartrate 325 mg-7.5 mg 1 tab(s) orally 3 times a day; Duration: 28 days January 2025 RXDO NOT FILL SOONER THAN 28 DAYS, (OK TO FILL EARLY, ONLY IF CLOSED) Active Acetaminophen-Hydrocodon e Bitartrate 325 mg-7.5 mg 1 tab(s) orally 3 times a day; Duration: 28 days December 2024 RXDO NOT FILL SOONER THAN 28 DAYS, (OK TO FILL EARLY, ONLY IF CLOSED) Active gabapentin 600 mg 1 tab(s) orally 2 times a day; Duration: 28 days DO NOT FILL SOONER THAN 28 DAYS, (OK TO FILL EARLY, ONLY IF CLOSED) Active traZODone 50 mg as directed orally 11/26/2022 Active escitalopram 10 mg 1 tab(s) orally once a day; Duration: 30 day(s) 11/26/2022 Active pantoprazole 40 mg 1 tab(s) orally once a day; Duration: 30 day(s) 07/10/2022 Active montelukast 10 mg 1 tab(s) orally once a day; Duration: 30 day(s) 07/10/2022 Active amLODIPine 5 mg 1 tab(s) orally once a day; Duration: 30 day(s) 07/10/2022 Active Vital Signs Blood pressure systolic 149 mm Hg 02/22/20 25 Blood pressure diastolic 102 mm Hg 025 Heart Rate 81 /min 02/21/2025 Height 66 in 02/21/2025 Weight 163 lbs 02/21/2025 BMI 26.31 kg/m2 02/21/2025 Encounters Encounter Location Date Provider Diagnosis [facility] [address] [place] [address] 02/21/2025 Oscar Lewis Migraine without aura, not intractable, without status migrainosus G43.009 ; Other fci (current) drug therapy Z79.899 ; Spondylosis without myelopathy or radiculopathy, cervical region M47.812 ; Spondylosis without myelopathy or radiculopathy, lumbar region M47.816 ; Pain in right knee M25.561 and Pain in right lower leg M79.661 Assessments Encounter Date Diagnosis (ICD Code) Assessment Notes Treatment Notes Treatment Clinical Notes Section Notes 02/21/2025 Migraine without aura, not intractable, without status [...] She continues to take flexeril, gabapentin, and Magnolia with some relief. Denies adverse side effects or recent medical issues. Nhung and UDS reviewed and are compliant. Refills and F/U in 2 months. 12/23/2024 The patient presents for a scheduled follow-up and medication refills. She continues to experience chronic mid-back and bilateral foot pain, with underlying pain generators including lumbar and cervical spondylosis, lumbar radiculopathy, chronic migraine headaches, and left-sided thoracic outlet syndrome. She reports her pain is constant and described as aching, stabbing, and tingling, with the worst pain located in the mid-back and feet. Pain is worsened by prolonged standing or remaining in one position and is partially relieved by medications and use of a hot tub. Pain continues to interfere with daily chores, mood, and general movement. She is currently prescribed Magnolia 7.5/325 mg TID and Gabapentin 600 mg BID, which provides approximately 50% pain relief for up to four hours. She denies any medication side effects. Although she previously completed six weeks of a home exercise program (HEP) and continues to follow it, she declines further interventional treatment, including injections and formal physical therapy. NHUNG and urine drug screen (UDS) were reviewed and are compliant. There are no red flags or evidence of misuse or diversion. The plan is to continue her current medications as prescribed, provide refills as needed, and follow up in two months. 02/21/2025 Other rolling attendant (current) drug therapy (ICD-10 - Z79.899) Primary pain generator is Lumbar Spondylosis, secondary pain generator is Cervical Spondylosis, Lumbar Radiculopathy, Migraine PAYTON's, chronic pain syndrome, thoracic outlet compression syndrome 02/21/2025 1 Refill Magnolia 7.5/325mg TID 2 Refill GBP 600mg BID 3 Refill Flexeril 10mg TID 4 F/U 2 months 08/23/2024 Alicia presents today for follow up [...] She continues to take flexeril, gabapentin, and Magnolia with some relief. Denies adverse side effects or recent medical issues. Nhung and UDS reviewed and are compliant. Refills and F/U in 2 months. 12/23/2024 The patient presents for a scheduled follow-up and medication refills. She continues to experience chronic mid-back and bilateral foot pain, with underlying pain generators including lumbar and cervical spondylosis, lumbar radiculopathy, chronic migraine headaches, and left-sided thoracic outlet syndrome. She reports her pain is constant and described as aching, stabbing, and tingling, with the worst pain located in the mid-back and feet. Pain is worsened by prolonged standing or remaining in one position and is partially relieved by medications and use of a hot tub. Pain continues to interfere with daily chores, mood, and general movement. She is currently prescribed Magnolia 7.5/325 mg TID and Gabapentin 600 mg BID, which provides approximately 50% pain relief for up to four hours. She denies any medication side effects. Although she previously completed six weeks of a home exercise program (HEP) and continues to follow it, she declines further interventional treatment, including injections and formal physical therapy. NHUNG and urine drug screen (UDS) were reviewed and are compliant. There are no red flags or evidence of misuse or diversion. The plan is to continue her current medications as prescribed, provide refills as needed, and follow up in two months. 02/21/2025 Spondylosis without myelopathy or radiculopathy, cervical region [...] She continues to take flexeril, gabapentin, and Magnolia with some relief. Denies adverse side effects or recent medical issues. Nhung and UDS reviewed and are compliant. Refills and F/U in 2 months. 12/23/2024 The patient presents for a scheduled follow-up and medication refills. She continues to experience chronic mid-back and bilateral foot pain, with underlying pain generators including lumbar and cervical spondylosis, lumbar radiculopathy, chronic migraine headaches, and left-sided thoracic outlet syndrome. She reports her pain is constant and described as aching, stabbing, and tingling, with the worst pain located in the mid-back and feet. Pain is worsened by prolonged standing or remaining in one position and is partially relieved by medications and use of a hot tub. Pain continues to interfere with daily chores, mood, and general movement. She is currently prescribed Magnolia 7.5/325 mg TID and Gabapentin 600 mg BID, which provides approximately 50% pain relief for up to four hours. She denies any medication side effects. Although she previously completed six weeks of a home exercise program (HEP) and continues to follow it, she declines further interventional treatment, including injections and formal physical therapy. NHUNG and urine drug screen (UDS) were reviewed and are compliant. There are no red flags or evidence of misuse or diversion. The plan is to continue her current medications as prescribed, provide refills as needed, and follow up in two months. 02/21/2025 Spondylosis without myelopathy or radiculopathy, lumbar region [...] She continues to take flexeril, gabapentin, and Magnolia with some relief. Denies adverse side effects or recent medical issues. Nhung and UDS reviewed and are compliant. Refills and F/U in 2 months. 12/23/2024 The patient presents for a scheduled follow-up and medication refills. She continues to experience chronic mid-back and bilateral foot pain, with underlying pain generators including lumbar and cervical spondylosis, lumbar radiculopathy, chronic migraine headaches, and left-sided thoracic outlet syndrome. She reports her pain is constant and described as aching, stabbing, and tingling, with the worst pain located in the mid-back and feet. Pain is worsened by prolonged standing or remaining in one position and is partially relieved by medications and use of a hot tub. Pain continues to interfere with daily chores, mood, and general movement. She is currently prescribed Magnolia 7.5/325 mg TID and Gabapentin 600 mg BID, which provides approximately 50% pain relief for up to four hours. She denies any medication side effects. Although she previously completed six weeks of a home exercise program (HEP) and continues to follow it, she declines further interventional treatment, including injections and formal physical therapy. NHUNG and urine drug screen (UDS) were reviewed and are compliant. There are no red flags or evidence of misuse or diversion. The plan is to continue her current medications as prescribed, provide refills as needed, and follow up in two months. 02/21/2025 Pain in right knee (ICD-10 - M25.561) [...] She continues to take flexeril, gabapentin, and Magnolia with some relief. Denies adverse side effects or recent medical issues. Nhung and UDS reviewed and are compliant. Refills and F/U in 2 months. 12/23/2024 The patient presents for a scheduled follow-up and medication refills. She continues to experience chronic mid-back and bilateral foot pain, with underlying pain generators including lumbar and cervical spondylosis, lumbar radiculopathy, chronic migraine headaches, and left-sided thoracic outlet syndrome. She reports her pain is constant and described as aching, stabbing, and tingling, with the worst pain located in the mid-back and feet. Pain is worsened by prolonged standing or remaining in one position and is partially relieved by medications and use of a hot tub. Pain continues to interfere with daily chores, mood, and general movement. She is currently prescribed Magnolia 7.5/325 mg TID and Gabapentin 600 mg BID, which provides approximately 50% pain relief for up to four hours. She denies any medication side effects. Although she previously completed six weeks of a home exercise program (HEP) and continues to follow it, she declines further interventional treatment, including injections and formal physical therapy. NHUNG and urine drug screen (UDS) were reviewed and are compliant. There are no red flags or evidence of misuse or diversion. The plan is to continue her current medications as prescribed, provide refills as needed, and follow up in two months. 02/21/2025 Pain in right lower leg (ICD-10 - M79.661) 08/23/2024 Alicia presents today for follow up [...] She continues to take flexeril, gabapentin, and Magnolia with some relief. Denies adverse side effects or recent medical issues. Nhung and UDS reviewed and are compliant. Refills and F/U in 2 months. 12/23/2024 The patient presents for a scheduled follow-up and medication refills. She continues to experience chronic mid-back and bilateral foot pain, with underlying pain generators including lumbar and cervical spondylosis, lumbar radiculopathy, chronic migraine headaches, and left-sided thoracic outlet syndrome. She reports her pain is constant and described as aching, stabbing, and tingling, with the worst pain located in the mid-back and feet. Pain is worsened by prolonged standing or remaining in one position and is partially relieved by medications and use of a hot tub. Pain continues to interfere with daily chores, mood, and general movement. She is currently prescribed Magnolia 7.5/325 mg TID and Gabapentin 600 mg BID, which provides approximately 50% pain relief for up to four hours. She denies any medication side effects. Although she previously completed six weeks of a home exercise program (HEP) and continues to follow it, she declines further interventional treatment, including injections and formal physical therapy. NHUNG and urine drug screen (UDS) were reviewed and are compliant. There are no red flags or evidence of misuse or diversion. The plan is to continue her current medications as prescribed, provide refills as needed, and follow up in two months. Plan Of Treatment Medication Medication Name Sig Start Date Stop Date Notes Cyclobenzaprine Hydrochloride 10 mg 1 tab(s) orally 3 times a day; Duration: 30 day(s) Acetaminophen-Hydrocodone Bitartrate 325 mg-7.5 mg 1 tab(s) orally 3 times a day; Duration: 28 days January 2025 RXDO NOT FILL SOONER THAN 28 DAYS, (OK TO FILL EARLY, ONLY IF CLOSED) Acetaminophen-Hydrocodone Bitartrate 325 mg-7.5 mg 1 tab(s) orally 3 times a day; Duration: 28 days December 2024 RXDO NOT FILL SOONER THAN 28 DAYS, (OK TO FILL EARLY, ONLY IF CLOSED) gabapentin 600 mg 1 tab(s) orally 2 times a day; Duration: 28 days DO NOT FILL SOONER THAN 28 DAYS, (OK TO FILL EARLY, ONLY IF CLOSED) Treatment Notes Assessment Notes Other fci (current) drug therapy Primary pain generator is Lumbar Spondylosis, secondary pain generator is Cervical Spondylosis, Lumbar Radiculopathy, Migraine PAYTON's, chronic pain syndrome, thoracic outlet compression syndrome 02/21/2025 1 Refill Magnolia 7.5/325mg TID 2 Refill GBP 600mg BID 3 Refill Flexeril 10mg TID 4 F/U 2 months Next Appt Details Follow Up: 2 Months, Reason: Provider Name:Oscar foreman, 04/19/2025 09:45:00 AM, [address], [address], [place], [address], Procedure Notes * Category Sub-Category Detail Notes PROVIDER ENCOUNTER AND OVERSIGHT Consult Performed By: Karolina Marc DNP, BOAT RIGGER, AGAP-, 02/21/2025 09:07:46 AM EDT >, , Telemed collaborated treatment plan with Oscar trevino M.D., supervising physician Progress Notes * October FDOB:1975 (50 yo F)Acc No.[id number]:02/21/2025 Patient: Cassidy BRADYOctober Provider: Bruna Lewis II, M.D. :1975 A ge:50 Y S ex:Female Date:02/21/2025 Address:[address] [place] [address], [id number] Pcp:Deepika Delvalle BOAT RIGGER - Subjective: * Chief Complaints: * 1 . Mid back pain . 2. Low Back Pain. * HPI: T ODAYS PAIN EVALUATION: 50 year old female presents with c/o MEDICATION FOLLOW UP: T he patient is currently prescribed Magnolia 7.5/325 mg TID and Gabapentin 600mg BID which provides 50% relief of pain symptoms for 4 hours. The last dose was taken 02/21/2025 Denies side effects. CURRENT PAIN SYMPTOMS: L ocation [...] process . P REVIOUS INJECTION\PROCEDURE HISTORY:? D enies . P HYSICAL/AQUA THERAPY/DME/OTHER HISTORY: 2 024 Patient continues a prescribed home exercise program 3-5 times per week (stretches and mild yoga) as of 12/23/2024 2 025 patient does some stretches 3 times a week 02/21/2025. P ERTINENT SURGICAL EVALUATIONS/SPECIALIST CONSULTS Bruna Nichole, neurology, [place], [place]. Dr. Melo, podiatry, for Tarsal Tunnel Syndrome . P REVIOUS PAIN CLINIC CARE: D juanjose . S ANDERSON OF INITIAL EVALUATION: 1 New patient consult referred by Self f or chrtonic back pain onset in 2004 without incident Alicia presents for follow up. Primary pain generator is Lumbar Spondylosis, secondary pain generator is Cervical Spondylosis, Lumbar Radiculopathy, Migraine PAYTON's, chronic pain syndrome. Continues to use Magnolia 5mg TID and GBP 600mg TID with [...] relaxer Depression . U RINE DRUG TESTIN 01/06/2024 Screen Expected 0 02/29/2024 Screen Expected Definitive Expected 1 Screen Expected 1 08/22/2023 Screen Expected 0 08/23/2024 Screen Expected Definitive Expected, 0 12/23/2024 S creen Expected, 0 02/21/2025. M ONITORING: M orphine Equivalent (MME): 20 [...] , HTN -2004 / managed by Deepika Delvalle [facility], Reflux -1999 / managed by Dr.Karen Salinas, Depression-1997 / managed by Deepika [facility], Anxiety-1997 / managed by Deepika [facility]. * Surgical History: c holecystectomy / [facility] / (OP) 2013, Hysterectomy / [facility] / 4 day stay 2012, LT foot x2 / [facility] / (OP)x2 2004. * Hospitalization/Major Diagno stic Procedure: D enies Past Hospitalization. * Family History: N on-Contributory. Denies Family History of Substance Abuse. * Social History: S moking: no . P ersonal History Drug Use: No. Alcohol: No. * Medications: T aking Cyclobenzaprine Hydrochloride 10 mg tablet 1 tab(s) orally 3 times a day , Taking Diclofenac Sodium Topical 1% gel 2-4 grams to affected area applied topically 4 times a day , Taking levothyroxine 88 mcg (0.088 mg) tablet 1 tab(s) orally once a day , Taking levocetirizine 5 mg [...] times a day , Notes to Pharmacist: December 2024 RXDO NOT FILL SOONER THAN 28 DAYS, (OK TO FILL EARLY, ONLY IF CLOSED), Taking Acetaminophen-Hydrocodone Bitartrate 325 mg-7.5 mg tablet 1 tab(s) orally 3 times a day , Notes to Pharmacist: January 2025 RXDO NOT FILL SOONER THAN 28 DAYS, (OK TO FILL EARLY, ONLY IF CLOSED) * Allergies: n aproxen: stomach upset - Side Effects, Naproxen Sodium DS: stomach upset - Side Effects. Objective: * Vitals: B P: 149/102, HR: 81, Pain VAS (0-10): 6, Ht: 66, Wt: 163, BMI:26.31Index. * Examination: G eneral Examination: Nurse/Web Publisher: Eric suarez(MA-MITCHELL)Kimmie 02/21/2025 09:02:23 AM EDT >,. General Appearance: w ell-nourished individual in no [...] loading.. Assessment: * Assessment: 1. O ther rolling attendant (current) drug therapy - Z79.899 (Primary) 2 . M igraine without aura, not intractable, without status migrainosus - G43.009 3 . S pondylosis without myelopathy or radiculopathy, cervical region - M47.812 4 . S pondylosis without myelopathy or radiculopathy, lumbar region - M47.816 5 . P ain in right knee - M25.561 6 . P ain in right lower leg - M79.661 08/23/2024 Alicia presents today for follow up [...] She continues to take flexeril, gabapentin, and Magnolia with some relief. Denies adverse side effects or recent medical issues. Nhung and UDS reviewed and are compliant. Refills and F/U in 2 months. 12/23/2024 The patient presents for a scheduled follow-up and medication refills. She continues to experience chronic mid-back and bilateral foot pain, with underlying pain generators including lumbar and cervical spondylosis, lumbar radiculopathy, chronic migraine headaches, and left-sided thoracic outlet syndrome. She reports her pain is constant and described as aching, stabbing, and tingling, with the worst pain located in the mid-back and feet. Pain is worsened by prolonged standing or remaining in one position and is partially relieved by medications and use of a hot tub. Pain continues to interfere with daily chores, mood, and general movement. She is currently prescribed Magnolia 7.5/325 mg TID and Gabapentin 600 mg BID, which provides approximately 50% pain relief for up to four hours. She denies any medication side effects. Although she previously completed six weeks of a home exercise program (HEP) and continues to follow it, she declines further interventional treatment, including injections and formal physical therapy. NHUNG and urine drug screen (UDS) were reviewed and are compliant. There are no red flags or evidence of misuse or diversion. The plan is to continue her current medications as prescribed, provide refills as needed, and follow up in two months. Plan: * Treatment: Value Reference Range H eroin Metabolite (6AM) NEG * A mphetamine (AMP) NEG * B enzodiazepine (MARIAM) NEG * B uprenorphine NEG * C ocaine (SHANE) NEG * H ydrocodone (HYD) POS POS * M ethadone (MTD) NEG * O piate (OPI) NEG * O xycodone (OXY) NEG * Emma Fontanez 02/21/2025 09:58:2 3 AM EDT >Monico(TUB CHUCKER-MITCHELL)Karolina 02/21/2025 10:34:44 AM EDT > (Confirm All) Send specimen for definitive testing on Amphetamines, Anticonvulsants, Antitussive, Barbiturates,Bath Salts, Benzodiazepines, Buprenorphine, Fentanyl,TESSY Analogue, Heroin, Illicits, Methadone, Methylphenidate, Muscle Relaxants, Nicotine, Opiates, Opioid Antagonist, Other Anxiolytic,Recreational Compounds, Sleep Aids, SSRI/SNRI,Synthetic Cannabinoids,Tricyclics drug classes it has been 6 months since last UDS confirmation Notes: Primary pain generator is Lumbar Spondylosis, secondary pain generator is Cervical Spondylosis, Lumbar Radiculopathy, Migraine PAYTON's, chronic pain syndrome, thoracic outlet compression syndrome 02/21/2025 1 Refill Magnolia 7.5/325mg TID 2 Refill GBP 600mg BID 3 Refill Flexeril 10mg TID 4F/U 2 months ?? * Procedures: Shira RDZ ENCOUNTER AND OVERSIGHT: Consult Performed By: Dusty Marc DNP, BOAT RIGGER, AGACNP-BC, 09:07:46 AM EDT >, , Telemed. c ollaborated treatment plan with Bruna Lewis M.D., supervising physician . * Follow Up: 2 Months * * Electronic signature of Roberto Lewis II, M.D. on 03/06/2025 at 08:50 AM CDT Sign off status: Pending * Provider: Bruna Lewis II, M.D. Date: 0 02/21/2025 Generated for Digna lenz/Hollie/Gopi on: 0 03/06/2025 08:50 AM CDT History and Physical Notes * HPI (History of Present Illness) Category Sub-Category Detail Notes Category Not es PAIN MANAGEMENT TREATMENT HISTORY SUMMARY OF INITIAL EVALUATION: 04/30/2018 New patient consult referred by Self for chrtonic back pain onset in 2004 without incident October presents for follow up. Primary pain generator is Lumbar Spondylosis, secondary pain generator is Cervical Spondylosis, Lumbar Radiculopathy, Migraine PAYTON's, chronic pain syndrome. Continues to use Magnolia 5mg TID and GBP 600mg TID with [...] LUMBAR-No acute process PHYSICAL/AQUA THERAPY/DME/OT HER HISTORY: 2023 Patient continues a prescribed home exercise program 3-5 times per week (stretches and mild yoga) as of 12/23/20242024 patient does some stretches 3 times a week 02/21/2025 PERTINENT SURGICAL EVALUATIONS/SPECIALIST CONSULTS Dr. Nichole, neurology, [place], [place]. Dr. Melo, podiatry, for Tarsal Tunnel Syndrome PREVIOUS INJECTION\PROCEDURE HISTORY: Denies PREVIOUS PAIN CLINIC CARE: Denies COMPLIANCE RISK ASSESSMENT AND STRATIFICATI ON: RISK GROUP: MODERATE RISK muscle relaxer Depression URINE DRUG TESTIN01/06/2024 Screen Ex pected 02/29/2024 Screen Expected Definitive Expected 04/26/2024 Screen Expected 06/21/2024 Screen Expected 08/23/2024 Screen Expected Definitive Expected, 12/23/2024 Screen Expected, 02/21/2025 MONITORING: Morphine Equivalent (MME): 20 mg NHUNG reviewed today and appropriate TESTING/RISK ASSESSMENTS ORT Score/Resul t: 1 (depression) TODAYS PAIN EVALUATION MEDICATION FOLLOW UP: The patient is currently prescribed Magnolia 7.5/325 mg TID and Gabapentin 600mg BID which provides 50% relief of pain symptoms for 4 hours. The last dose was taken 02/21/2025 Denies side effects CURRENT PAIN SYMPTOMS: Location of Worst Pain:: Mid-Back Additional Location of Pain:: Feet Pain Frequency:: constant Pain Description:: aching, stabbing, tin gling Average Pain Score VAS:: 5 Pain Exacerbation:: staying g in one pos ition standing Pain Alleviation:: medications hot tub ADL/Quality of Life Interfer ence:: daily chores, mood movement Examination Category Sub-Category Detail Notes Category Not [...] wi th an antalgic gait, pitched forward Nurse/Web Publisher: Kimmie Mccormack (MA-LEX) 02/21/2025 09:02:23 AM EDT >, Cervical Spine/Neck Vertebral spine tenderness: tenderness over [...]
--- OUTSIDE RECORDS SUMMARY | 2025-02-21 05:00 | XMS_ITS ---
Author Organization [facility] Address [address] [place] [address] Care Team Providers Care Ceiling Cleaner Name Role Phone Deepika Saeed APRN Primary [...] Diagnosis [facility] [address] [place] [address] 02/21/2025 Oscar Lewis Migraine without aura, not intractable, without status migrainosus G43.009 ; Other mcfp (current) drug therapy Z79.899 ; Spondylosis without [...] She continues to take flexeril, gabapentin, and Smithton with some relief. Denies adverse side effects [...] and general movement. She is currently prescribed Smithton 7.5/325 mg TID and Gabapentin 600 mg [...] follow up in two months. 02/21/2025 Other terminal gauger (current) drug therapy (ICD-10 - Z79.899) Primary pain generator is Lumbar Spondylosis, secondary pain generator is Cervical Spondylosis, Lumbar Radiculopathy, Migraine PAYTON's, chronic pain syndrome, thoracic outlet compression syndrome 02/21/2025 1 Refill Smithton 7.5/325mg TID 2 Refill GBP 600mg BID [...] She continues to take flexeril, gabapentin, and Smithton with some relief. Denies adverse side effects [...] and general movement. She is currently prescribed Smithton 7.5/325 mg TID and Gabapentin 600 mg [...] She continues to take flexeril, gabapentin, and Smithton with some relief. Denies adverse side effects [...] and general movement. She is currently prescribed Smithton 7.5/325 mg TID and Gabapentin 600 mg [...] She continues to take flexeril, gabapentin, and Smithton with some relief. Denies adverse side effects [...] and general movement. She is currently prescribed Smithton 7.5/325 mg TID and Gabapentin 600 mg [...] She continues to take flexeril, gabapentin, and Smithton with some relief. Denies adverse side effects [...] and general movement. She is currently prescribed Smithton 7.5/325 mg TID and Gabapentin 600 mg [...] She continues to take flexeril, gabapentin, and Smithton with some relief. Denies adverse side effects [...] and general movement. She is currently prescribed Smithton 7.5/325 mg TID and Gabapentin 600 mg [...] IF CLOSED) Treatment Notes Assessment Notes Other mcfp (current) drug therapy Primary pain generator is Lumbar Spondylosis, secondary pain generator is Cervical Spondylosis, Lumbar Radiculopathy, Migraine PAYTON's, chronic pain syndrome, thoracic outlet compression syndrome 02/21/2025 1 Refill Smithton 7.5/325mg TID 2 Refill GBP 600mg BID 3 Refill Flexeril 10mg TID 4 F/U 2 months Next Appt Details Follow Up: 2 Months, Reason: Provider Name:Oscar foreman, 04/19/2025 09:45:00 AM, [address], [address], [place], [address], Procedure Notes * Category Sub-Category Detail Notes PROVIDER ENCOUNTER AND OVERSIGHT Consult Performed By: Karolina Marc DNP, LICENSE EXAMINER, AGAP-, 02/21/2025 09:07:46 AM EDT >, , Telemed collaborated treatment plan with Oscar trevino M.D., supervising physician Progress Notes * October FDOB:1975 (50 yo F)Acc No.[id number]:02/21/2025 Patient: Cassidy BRADYOctober Provider: Bruna Lewis II, M.D. :1975 A ge:50 Y S ex:Female Date:02/21/2025 Address:[address] [place] [address], [place] [phone] Pcp:Deepika Delvalle LICENSE EXAMINER - Subjective: * Chief Complaints: * 1 . Mid back pain . 2. Low Back Pain. * HPI: T ODAYS PAIN EVALUATION: 50 year old female presents with c/o MEDICATION FOLLOW UP: T he patient is currently prescribed Smithton 7.5/325 mg TID and Gabapentin 600mg BID [...] ERTINENT SURGICAL EVALUATIONS/SPECIALIST CONSULTS Bruna Nichole, neurology, [place], [place]. Dr. Melo, podiatry, for Tarsal Tunnel [...] PAYTON's, chronic pain syndrome. Continues to use Smithton 5mg TID and GBP 600mg TID with [...] HTN -2004 / managed by Deepika Delvalle [facility], Reflux -1999 / managed by Dr.Karen Salinas, Depression-1997 / managed by Deepika [facility], Anxiety-1997 / managed by Deepika [facility]. * Surgical History: c holecystectomy / [facility] / (OP) 2013, Hysterectomy / [facility] / 4 day stay 2012, LT foot x2 / [facility] / (OP)x2 2004. * Hospitalization/Major Diagno [...] 163, BMI:26.31Index. * Examination: G eneral Examination: Nurse/Advanced Manufacturing Vice President: Eric suarez(MA-MITCHELL)Kimmie 02/21/2025 09:02:23 AM EDT >,. [...] loading.. Assessment: * Assessment: 1. O ther terminal gauger (current) drug therapy - Z79.899 (Primary) 2 [...] She continues to take flexeril, gabapentin, and Smithton with some relief. Denies adverse side effects [...] and general movement. She is currently prescribed Smithton 7.5/325 mg TID and Gabapentin 600 mg [...] Emma Fontanez 02/21/2025 09:58:2 3 AM EDT >Monico(SANDBLASTER PAINT SPRAYER-MITCHELL)Karolina 02/21/2025 10:34:44 AM EDT > (Confirm All) [...] thoracic outlet compression syndrome 02/21/2025 1 Refill Smithton 7.5/325mg TID 2 Refill GBP 600mg BID 3 Refill Flexeril 10mg TID 4F/U 2 months ?? * Procedures: Shira RDZ ENCOUNTER AND OVERSIGHT: Consult Performed By: Dusty Marc DNP, LICENSE EXAMINER, AGACNP-BC, 09:07:46 AM EDT >, , Telemed. c ollaborated treatment plan with Bruna Lewis M.D., supervising physician . * Follow Up: 2 Months * * Electronic signature of Roberto Lewis II, M.D. on 03/04/2025 at 12:26 PM CDT Sign off status: Pending * Provider: Bruna Lewis II, M.D. Date: 0 02/21/2025 Generated for Digna lenz/Hollie/Gopi on: 0 03/04/2025 12:26 PM CDT History [...] PAYTON's, chronic pain syndrome. Continues to use Smithton 5mg TID and GBP 600mg TID with [...] PERTINENT SURGICAL EVALUATIONS/SPECIALIST CONSULTS Dr. Nichole, neurology, [place], [place]. Dr. Melo, podiatry, for Tarsal Tunnel [...] FOLLOW UP: The patient is currently prescribed Smithton 7.5/325 mg TID and Gabapentin 600mg BID [...] wi th an antalgic gait, pitched forward Nurse/Advanced Manufacturing Vice President: Kimmie Mccormack (MA-LEX) 02/21/2025 09:02:23 AM EDT [...]
[2025-03-04] VITALS (12 sets, daily range): BP systolic 156–184; BP diastolic 83–118; PULSE 91–115; RESP 13–20; TEMP 36.7–37.1; O2SAT 95–100; BMI 24.2
--- NOTE | 2025-03-04 13:21 | ECG_ITS ---
APPROVED REPORT Exam: Resting ECG HR:103 bpm ECG Measurements Heart Rate 103 AXES CO 137 P 79 QRSd 92 QRS 94 QT 361 T 75 QTc 421 Conclusion Sinus tachycardia Right axis Normal intervals NO STEMI Electronically signed by : Jose Yang, 03/04/2025 15:47:33
--- OUTSIDE RECORDS SUMMARY | 2025-03-04 13:26 | XMS_ITS | Encounter Summary ---
[facility] Address [address] [place] [address] Care Team Providers Care Cementing Machine Operator Name Role Phone Deepika Delvalle PEDRITO Primary Care Provider Reason for Visit * Reason Onset Date Comments Labs Only 02/08/2025 Encounter Details Date Type Department Care Team (Late st Contact Info) Description 02/08/[address] [facility] ENDOCRINOLOGY [address] [place] [phone] Gemma Catalan MD [address] [place] [address] Labs Only Social History Tobacco Use Types Packs/Day Years [...] on file documented as of this encounter Miscellaneous Notes * Telephone Encounter - Gemma Catalan MD - 02/09/2025 2:12 PM EDT Spoke with patient about lab results. Have sent new Rx for levothyroxine 75 mcg. Will check TSH in 6-8 weeks on new dose. Pt on PPI daily currently. * Telephone Encounter - Gemma Catalan MD - 02/09/2025 12:21 PM EDT Pt not available. Left message for her to call me back. * Telephone Encounter - Mely Davis MA - 02/08/2025 4:02 PM EDT Please see labs on care everywhere and advise. * Telephone Encounter - Hector Maldonado RegSched Rep - 02/08/2025 3:57 PM EDT Pt called Mely back * Telephone Encounter - Mely Davis MA - 02/08/2025 3:38 PM EDT Left detailed message needing date etc labs were done. * Telephone Encounter - Marie Mcguire RegSched Rep - 02/08/2025 3:23 PM EDT Hub staff attempted to follow warm transfer process and was unsuccessful Caller: Vincent October Relationship to patient: Self Best call back number: [phone] Patient is needing: PT HAD LAB ORDERS FAXED TO [facility] AND LABS WERE COMPLETED . PER [facility] OUR OFFICE NEEDS TO CALL THEM AT [phone]. ONCE CALLING [facility] THEY WILL FAX LAB RESULTS TO US.PT ASKED FOR A CALL BACK ONCE RESULTS HAVE BEEN RECEIVED. documented in this encounter Plan of Treatment Upcoming Encounters Date Type Department Care Team (Late st Contact Info) Description 10/10/2025 9:30 AM EDT Office Visit [facility] NEUROLOGY [address] [place] [address] Rajendra Brito MD [address] [place] [address] 11/21/2025 9:30 AM EDT Office Visit [facility] ENDOCR[facility]OLOGY [address] [place] [phone] Gemma Catalan MD [address] [place] [address] documented as of this encounter Goals Goal [...] 2 weekly documented as of this encounter Visit Diagnoses Not on filedocumented in this encounter Care Teams Cementing Machine Operator Relationship Specialty Start Date End Date Deepika Delvalle APRN [address] [place] [address] PCP - General 04/03/15 documented as of this encounter
--- OUTSIDE RECORDS SUMMARY | 2025-03-04 13:26 | XMS_ITS ---
Author Organization [facility] Address [address] [place] [address] Care Team Providers Care Aws Consultant Name Role Phone Deepika Delvalle APRN Primary Care Provider Chronic Migraine Status:Enrolled (Active) Start date:06/10/2021 Enrollment date:06/10/2021 Enrollment reason:Referred by provider Current support & services provided:Clinical Assessment, Refill Coordination , Benefits Investigation, Prior Authorization, Copay Assistance, [facility] Dispensing Linked medications:Galcanezumab-gnlm (Active) Linked problems:Periodic headache syndrome, not intractable (Active) Overview Mail Order I-vent added for [facility] Case Team Name Relationship Phone Rajendra Brito MD Consulting Physician [phone] Continued Care and Services Coordination
--- OUTSIDE RECORDS SUMMARY | 2025-03-04 13:26 | XMS_ITS | Encounter Summary ---
Author Organization [facility] Address [address] [place] [address] Care Team Providers Care Senior Abap Developer Name Role Phone Deepika Delvalle PEDRITO Primary Care Provider Encounter Details Date Type Department Care Team (Late st Contact Info) Description 11/25/2024 Results Follow-Up [facility] ENDOCRINOLOGY [address] [place] [phone] Gemma Catalan MD [address] [place], [place] [phone] Social History Tobacco Use Types Packs/Day Years [...] Description 10/10/2025 9:30 AM EDT Office Visit [facility] NEUROLOGY [address] [place] [address] Rajendra Brito MD [address] [place] [address] 11/21/2025 9:30 AM EDT Office Visit [facility] ENDOCRINOLOGY [address] [place] [address] Gemma Catalan MD [address] [facility] [address] [place] [address] documented as of this encounter Goals Goal [...] on filedocumented in this encounter Care Teams Senior Abap Developer Relationship Specialty Start Date End Date Deepika Delvalle APRN [facility] [place] [address] PCP - General 04/03/15 documented as of this encounter
--- OUTSIDE RECORDS SUMMARY | 2025-03-04 13:26 | XMS_ITS | Clinical Summary ---
Author Organization Healthcare Address [address] [place] [address] Care Team Providers Care Premium Note Interest Calculator Clerk Name Role Phone DelvalleDeepika smith APRN Primary Care Provider [phone] Allergies Active Allergy Reactions Criticality Noted Date Comments Naproxen Sodium Other - please docum ent in the comment field Low 10/08/2022 Naproxen Unknown - Patient st ates they do not know rxn details Low 03/12/2021 Medications HYDROcodone-acetam inophen ([place]) 7.5-325 MG tablet TAKE 1 TABLET 3 times daily 0 Active galcanezumab-gnlm (Emgality) 120 MG/ML injection Inject 1 Syringe (120 mg) under the skin every 28 (twenty-eight) days. 2 Active Magnesium 250 MG tablet Take 250 mg by mouth 1 (one) time each day. Active gabapentin (Neurontin) 600 MG tablet Take 1 tablet (600 mg) by mouth 2 (two) times a day. 8 Active diclofenac (Voltaren) 1 % topical gel 2 Active cyclobenzaprine (Flexeril) 10 MG tablet Take 1 tablet (10 mg) by mouth 3 (three) times a day if needed. 2 Active alpha tocopherol (Vitamin E) 400 units capsule Take 1 capsule (400 Units) by mouth 2 (two) times a day. Active rizatriptan MANAGER [employer] ENTER[employer]ISE (Maxalt-MANAGER OF ENTERPRISE) 10 MG disintegrating tablet Take 1 tablet by mouth at onset of headache. May repeat every 2 hours as needed. Maximum 3 tables in 24 hours. 0 Active pantoprazole (Protonix) 40 MG EC tablet 1 (one) time each day at the same time. 0 Active ciclopirox (Penlac) 8 % solution 1 (one) time each day at the same time. 2 Active traZODone (Desyrel) 50 MG tabletIndications: Other depression Take 1-2 tablets (50-100 mg total) by mouth at night if needed for sleep. 180 tablet 1 3 Active azelastine (Astelin) 0.1 % nasal sprayIndications:C hronic allergic rhinitis Administer 1 spray into each nostril 2 (two) times a day. Use in each nostril as directed 30 mL 12 4 Active fluticasone (Flonase) 50 MCG/ACT nasal sprayIndications:C hronic allergic rhinitis Administer 1 spray into each nostril 2 (two) times a day. Shake gently. Before first use, prime pump. After use, clean tip and replace cap. 16 g 11 4 Active levocetirizine (Xyzal) 5 MG tabletIndications: Chronic allergic rhinitis Take 1 tablet (5 mg) by mouth 1 (one) time each day in the evening. 30 tablet 11 4 Active PARoxetine (Paxil) 20 MG tabletIndications: Generalized anxiety disorder Take 1 tablet (20 mg) by mouth 1 (one) time each day in the morning. 30 tablet 11 4 025 Active amLODIPine (Norvasc) 5 MG tabletIndications: Essential (primary) hypertension Take 1 tablet (5 mg) by mouth 1 (one) time each day. as directed 90 tablet 3 4 Active montelukast (Singulair) 10 MG tablet TAKE 1 TABLET BY MOUTH AT BEDTIME 90 tablet 2 5 Active levothyroxine (Synthroid, Levoxyl) 75 MCG tablet Take 1 tablet (75 mcg) by mouth daily before breakfast. 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 Continue current treatment regimen. Discussed starting Botox, she wishes to continue to consider starting and will notify me if she would like to pursue Botox injections. This patient experiences 15/30 headache days per month with at least 8 days being severe migraine headaches. Migraine headaches last >4hour/day and have been present for greater than 6 consecutive months. Characteristics of migraines include at least 2 of the following: unilateral, pulsating, moderate to severe intensity, worsened by physical exertion, photophobia, phonophobia, nausea and/or vomiting. Patient has tried and failed medications for migraine prevention for 3 months or greater. I have recommended Botox using FDA approved protocol for chronic migraine prevention resistant to prior regimens as listed above. We have discussed risk and benefits of this procedure and common side effects including headache, neck pain, neck stiffness or weakness, ptosis, flu-like symptoms as well as more serious possible adverse effects including possible dysphagia, respiratory distress or even ( has only been reported once with adults for Botox for migraines in [place] when mixed with lidocaine solution which we do not use lidocaine solution in our practice for mixing Botox). Verbalizes understanding, accepts risks and agrees with moving forward with Botox injections for chronic migraine prevention. Continue Emaglity and Maxalt F/U in 1 year or sooner if needed Depression 05/09/2016 Overview (07/10/2022): Assessed By: Rajendra Brito (Neurology); Last Assessed: 29 May 2014 Last Assessment & Plan: Mood is stable off meds Pain in thoracic spine 03/04/2010 Encounters Date Type Department Care Team Description 02/08/2025 Telephone [facility] [address] [phone] Deepika Delvalle APRN HCN Clinical Concern/Question 01/10/2025 Travel 12/07/2024 9:00 AM EDT Office Visit [facility] [address] [phone] Deepika Delvalle APRN Lumbosacral spondylosis without myelopathy (Primary Dx); Acute left-sided low back pain with left-sided sciatica; Numbness and tingling 12/07/2024 Results Follow-Up [facility] [address] [phone] Deepika Delvalle APRN 12/07/2024 Travel from Last 3 Months Immunizations Immunization Administration Dates Next Due Hep A, Adult 04/15/2019,07/29/2018 Family History Medical History Relation Name Comments Hypertension Father Hypertension Mother Diabetes Other Relation Name Status Comments Father Mother Other Social History Tobacco Use Types Packs/Day Years Used Date Smoking Tobacco: Never Passive Smoke Exposure: Current Smokeless Tobacco: Never Tobacco Cessation:Counseling Given: Not Answered Alcohol Use Standard Drinks/Week Comments No 0 (1 standard drink = 0.6 oz pur e alcohol) Humiliation, Afraid, Rape, and Kick questionnair e Answer Date Recorded Within the last year, have y ou been afraid of your partner or ex-partner? No 12/07/2024 Within the last year, have y ou been humiliated or emotionally abused in other ways by your partner or ex-partner? No Within the last year, have y ou been kicked, hit, slapped, or otherwise physically hurt by your partner or ex-partner? No 12/07/2024 Within the last year, have y ou been raped or forced to have any kind of sexual activity by your partner or ex-partner? No 12/07/2024 PHQ-2 Answer Date Recorded Patient Health Questionnaire-2 Score 3 12/07/2024 Hunger Vital Sign Answer Date Recorded Within the past 12 months, y ou worried that your food would run out before you got the money to buy more. Never true 12/08/19 25 Within the past 12 months, t he food you bought just didn't last and you didn't have money to get more. Never true 12/07/2024 PRAPARE - Transportation Answer Date Re corded In the past 12 months, has l ack of transportation kept you from medical appointments or from getting medications? No 11/18 In the past 12 months, has l ack of transportation kept you from meetings, work, or from getting things needed for daily living? No 12/07/2024 Housing Stability Vital Sign Answer León e Recorded In the last 12 months, was t here a time when you were not able to pay the mortgage or rent on time? No 05/03/2024 In the last 12 months, how many places have you lived? 1 05/03/2024 In the last 12 months, was t here a time when you did not have a steady place to sleep or slept in a longterm (including now)? No 05/03/2024 PHQ-9 Answer Date Recorded Patient Health Questionnaire-9 Score 10 12/07/2024 Housing Stability Vital Sign Answer León e Recorded In the last 12 months, was t here a time when you were not able to pay the mortgage or rent on time? No 12/07/2024 In the past 12 months, how m any times have you moved where you were living? 0 12/07/2024 At any time in the past 12 m [facility], were you homeless or living in a longterm (including now)? No 12/07/2024 Utilities Answer Date Recorded In the past 12 months has th e [employer], gas, oil, or water [employer] threatened to shut off services in your home? No 12/07/2024 PHQ-2A Answer Date Recorded Patient Health Questionnaire-2 Score 1 03/12/2023 Comments Unknown Sex and Gender Information Value Date Recorded Sex Assigned at Not on file Legal Sex Female 6:17 PM EDT Gender Identity Not on file Sexual Orientation Not on file Last Filed Vital Signs Vital Sign Reading Time Taken Comments Blood Pressure 138/80 12/07/2024 8:56 AM EDT Pulse 84 12/07/2024 8:56 AM EDT Temperature 36.7 C (98.1 F) 12/07/2024 8:56 AM EDT Respiratory Rate 16 12/07/2024 8:56 AM EDT Oxygen Saturation 99% 12/07/2024 8:56 AM EDT Inhaled Oxygen Concentration - - Weight 74 kg (163 lb 2.3 oz) 12/07/2024 8:56 AM EDT Height 167.6 cm (5' 6 ) 12/07/2024 8:56 AM EDT Body Mass Index 26.33 12/07/2024 8:56 AM EDT Plan of Treatment Health Maintenance Due Date Last Done Comments [facility]-HIV Screening 1975 [facility]-Hepatitis C Screening 1975 [facility]-Infant/Child/Adol SDOH Screenings 1975 [id number] Vaccine (#1) 02/21/1980 [facility]-DTaP,Tdap,and Td Vaccines (1 - Tdap) 1994 [facility]-Hepatitis B Vaccines (1 of 3 - 19+ 3-dose series) 1994 CT Colonography 02/21/2020 FIT-DNA 02/21/2020 FIT 02/21/2020 FOBT 02/21/2020 Sigmoidoscopy 02/21/2020 Colonoscopy 01/19/2024 01/18/2019, 01/10/2016 [facility]-Colorectal Cancer Screening 01/19/2024 [facility]-Breast Cancer Screening 2025 [facility]-Pneumococcal Vaccine: 50+ Years (1 of 1 - PCV) 2025 [facility]-Zoster Vaccines (1 of 2) 2025 [facility]-Influenza Vaccine (#1) 2025 [facility]- SDOH Screenings 06/09/2025 [facility]-Adult SDOH Screenings 06/09/2025 12/07/2024 [facility]-Depression Screening 12/07/2025 12/07/2024, 11/18 [facility]-Hepatitis A Vaccines Aged Out 04/15/2019, 07/20 No longer eligible based on patient's age to complete this topic [facility]-Obesity Intervention Completed 025, 10/10/2024, 05/03/2024, Additional history exists HPV Vaccines Aged Out No longer eligi ble based on patient's age to complete this topic [facility]-HIB Vaccines Aged Out No longer e ligible based on patient's age to complete this topic [facility]-IPV Vaccines Aged Out No longer e ligible based on patient's age to complete this topic [facility]-Rotavirus Vaccines Aged Out No lo nger eligible based on patient's age to complete this topic Procedures Procedure Name Priority Date/Time Associated Diagnosis Comments TSH Routine 01/10/2025 2:57 PM EDT Hypothyroidism due to Melanie thyroiditis VITAMIN D 25 HYDROXY Routine 12/07/2024 9:33 AM EDT Numbness and tingling FERRITIN, SERUM Routine 12/07/2024 9:33 AM EDT Numbness and tingling MAGNESIUM, PLASMA Routine 12/07/2024 9:3 3 AM EDT Numbness and tingling CBC WITH AUTO DIFFERENTIAL Routine 12/07/2024 9:33 AM EDT Numbness and tingling COMPREHENSIVE METABOLIC PANEL, PLASMA Routine 12/07/2024 9:33 AM EDT Numbness and tingling VITAMIN B12, SERUM Routine 12/07/2024 9: 33 AM EDT Numbness and tingling TSH Routine 12/07/2024 9:33 AM EDT Numbness and tingling COLONOSCOPY EXTERNAL RESULT 01/18/2019 from Last 3 Months or Most Recently Relevant to Health Maintenance Results * (ABNORMAL) TSH (01/10/2025 2:57 PM EDT) Only the most recent of2 resultswithin the time period is included. Thyroid Stimulating Hormone, Plasma 0.02(L) 0.40 - 4.20 uIU/mL 01/10/2025 6:33 PM EDT [facility] Blood Venous blood specimen / Unknown Venipuncture / Unknown 01/10/2025 2:57 PM EDT 01/10/2025 2:57 PM EDT Narrative [facility] - 01/10/2025 6:33 PM EDT Trimester Specific Ranges TSH ( IU/mL) 1st Trimester 0.1 - 3.0 2nd Trimester 0.19 - 4.06 3rd Trimester 0.3 - 3.7 Gemma Catalan MD LAB BLOOD ORDERABLES Final Resul t Performing Organization Address City/[facility]/ZIP Co de Phone Number [facility] [address] [place] [address] * Vitamin D 25 Hydroxy (12/07/2024 9:33 AM EDT) Vitamin D 25 Hydroxy 21.3 20.0 - 80.0 ng/mL 12/07/2024 3:13 PM EDT [facility] Blood Venous blood specimen / Unknown Venipuncture / Unknown 12/07/2024 9:33 AM EDT 12/07/2024 9:33 AM EDT Narrative [facility] - 12/07/2024 3:13 PM EDT Testing performed on [facility] Assistant, standardized against NIST SRM 2972. When testing samples from patients whose predominant form of vitamin D is vitamin D2, such as patients receiving vitamin D2 supplementation, results that are subtherapeutic should be confirmed with another method, such as LC-MS/MS, before being used for patient management. Vitamin D, 25-Hydroxy reference range, age 18 years and up: Deficiency: <12 ng/mL Insufficiency: 12 to 19 ng/mL Sufficiency: 20 to 80 ng/mL Possible toxicity: >100 ng/mL us Deepika Delvalle APRN LAB BLOOD ORDERABLES Final Result Performing Organization Address City/[facility]/ZIP Co de Phone Number [facility] [address] [place] [address] * CBC and Differential (12/07/2024 9:33 AM EDT) WBC Count 6.09 3.70 - 10.30 10*3/uL LAB HEMATOLOGY METHOD 12/07/2024 2:20 PM EDT [facility] RBC Count 4.56 3.90 - 5.20 10*6/uL LAB HEMATOLOGY METHOD 12/07/2024 2:20 PM EDT [facility] HGB 13.1 11.2 - 15.7 g/dL LAB HEMATOLOGY METHOD 12/07/2024 2:20 PM EDT [facility] HCT 40.5 34.0 - 45.0 % LAB HEMATOLOGY METHOD 12/07/2024 2:20 PM EDT [facility] Platelet Count 225 155 - 369 10*3/uL LAB HEMATOLOGY METHOD 12/07/2024 2:20 PM EDT [facility] MCV 89 79 - 98 fL LAB HEMATOLOGY METHOD 12/07/2024 2:20 PM EDT [facility] MCH 28.7 26.0 - 32.0 pg LAB HEMATOLOGY METHOD 12/07/2024 2:20 PM EDT [facility] MCHC 32.3 30.7 - 35.5 g/dL LAB HEMATOLOGY METHOD 12/07/2024 2:20 PM EDT [facility] RDW 12.7 11.5 - 14.5 % LAB HEMATOLOGY METHOD 12/07/2024 2:20 PM EDT [facility] MPV 10.9 8.8 - 12.5 fL LAB HEMATOLOGY METHOD 12/07/2024 2:20 PM EDT [facility] nRBC 0.0 <=0.0 per 100 WBCs LAB HEMATOLOGY METHOD 12/07/2024 2:20 PM EDT [facility] Differential Type Automated LAB HEMATOLOGY METHOD 12/07/2024 2:20 PM EDT [facility] Neutrophils % 49 % LAB HEMATOLOGY METHOD 12/07/2024 2:20 PM EDT [facility] Lymphocytes % 39 % LAB HEMATOLOGY METHOD 12/07/2024 2:20 PM EDT [facility] Monocytes % 9 % LAB HEMATOLOGY METHOD 12/07/2024 2:20 PM EDT [facility] Eosinophils % 2 % LAB HEMATOLOGY METHOD 12/07/2024 2:20 PM EDT [facility] Basophils % 1 % LAB HEMATOLOGY METHOD 12/07/2024 2:20 PM EDT [facility] Immature Granulocytes % 0 % LAB HEMATOLOGY METHOD 12/07/2024 2:20 PM EDT [facility] Neutrophils Absolute 3.02 1.60 - 6.10 10*3/uL LAB HEMATOLOGY METHOD 12/07/2024 2:20 PM EDT [facility] Lymphocytes Absolute 2.37 1.20 - 3.90 10*3/uL LAB HEMATOLOGY METHOD 12/07/2024 2:20 PM EDT [facility] Monocytes Absolute 0.53 0.30 - 0.90 10*3/uL LAB HEMATOLOGY METHOD 12/07/2024 2:20 PM EDT [facility] Eosinophils Absolute 0.12 0.00 - 0.50 10*3/uL LAB HEMATOLOGY METHOD 12/07/2024 2:20 PM EDT [facility] Basophils Absolute 0.03 0.00 - 0.10 10*3/uL LAB HEMATOLOGY METHOD 12/07/2024 2:20 PM EDT [facility] Immature Granulocytes Absolute 0.02 0.00 - 0.06 10*3/uL LAB HEMATOLOGY METHOD 12/07/2024 2:20 PM EDT [facility] Blood Venous blood specimen / Unknown Venipuncture / Unknown 12/07/2024 9:33 AM EDT 12/07/2024 9:33 AM EDT Narrative [facility] - 12/07/2024 2:20 PM EDT Therapeutic decision making should be based on absolute values, rather than percentages. Deepika Avnera FIRE LOSS PREVENTION ENGINEER LAB BLOOD ORDERABLES Final Result Performing Organization Address City/[facility] Co de Phone Number [facility] [address] [place] [address] * Magnesium, Plasma (12/07/2024 9:33 AM EDT) Magnesium, Plasma 2.0 1.9 - 2.4 mg/dL 12/07/2024 2:59 PM EDT [facility] Blood Venous blood specimen / Unknown Venipuncture / Unknown 12/07/2024 9:33 AM EDT 12/07/2024 9:33 AM EDT [place]ION ENGINEER LAB BLOOD ORDERABLES Final Result Performing Organization Address City/[facility]/ZIP Co de Phone Number [facility] [address] [place] [address] * Ferritin (12/07/2024 9:33 AM EDT) Ferritin, Serum 65 13 - 150 ng/mL 12/07/2024 3:02 PM EDT [facility] Blood Venous blood specimen / Unknown Venipuncture / Unknown 12/07/2024 9:33 AM EDT 12/07/2024 9:33 AM EDT Deepika Delvalle FIRE LOSS PREVENTION ENGINEER LAB BLOOD ORDERABLES Final Result [facility] [address] [place] [address] * (ABNORMAL) Vitamin B12, Serum (12/07/2024 9:33 AM EDT) Pathologist [facility] Vitamin B12, Serum >2,000(H) 210 - 1,033 pg/mL 12/07/2024 3:02 PM EDT [facility] Blood Venous blood specimen / Unknown Venipuncture / Unknown 12/07/2024 9:33 AM EDT 12/07/2024 9:33 AM EDT [facility] BLOOD ORDERABLES Final Result [facility] [address] [place] [address] * (ABNORMAL) Comprehensive Metabolic Panel, Plasma (12/07/2024 9:33 AM EDT) [facility] Signature Glucose, Plasma 99 74 - 99 mg/dL 12/07/2024 2:59 PM EDT [facility] BUN, Plasma 13 7 - 21 mg/dL 12/07/2024 2:59 PM EDT [facility] Creatinine, Plasma 0.86 0.60 - 1.10 mg/dL 12/07/2024 2:59 PM EDT [facility] BUN/Creatinine Ratio 15 12/07/2024 2:59 PM EDT [facility] Sodium, Plasma 142 136 - 145 mmol/L 12/07/2024 2:59 PM EDT [facility] Potassium, Plasma 4.4 3.6 - 4.9 mmol/L 12/07/2024 2:59 PM EDT [facility] Chloride, Plasma 105 97 - 107 mmol/L 12/07/2024 2:59 PM EDT [facility] CO2, Plasma 27 22 - 29 mmol/L 12/07/2024 2:59 PM EDT [facility] Anion Gap 10 6 - 16 mmol/L 12/07/2024 2:59 PM EDT [facility] Total Calcium, Plasma 9.3 8.9 - 10.2 mg/dL 12/07/2024 2:59 PM EDT [facility] Total Protein 6.7 6.3 - 7.9 g/dL 12/07/2024 2:59 PM EDT [facility] Albumin, Plasma 4.4 3.5 - 5.2 g/dL 12/07/2024 2:59 PM EDT [facility] AST, Plasma 22 10 - 35 U/L 12/07/2024 2:59 PM EDT [facility] ALT, Plasma 23 10 - 35 U/L 12/07/2024 2:59 PM EDT [facility] Alkaline Phosphatase, Plasma 112(H) 35 - 104 U/L 12/07/2024 2:59 PM EDT [facility] Total Bilirubin, Plasma 0.9 0.2 - 1.1 mg/dL 12/07/2024 2:59 PM EDT [facility] eGFRcr 82.9 mL/min/1.7 3m*2 12/07/2024 2:59 PM EDT [facility] Comment:Reported eGFRcr in m L/min/1.73m2 is based the CKD-EPI 2020 equation that does not use a race coefficient. Blood Venous blood specimen / Unknown Venipuncture / Unknown 12/07/2024 9:33 AM EDT 12/07/2024 9:33 AM EDT us Deepika Delvalle FIRE LOSS PREVENTION ENGINEER LAB BLOOD ORDERABLES Final Result [facility] [address] [place] [address] * COLONOSCOPY EXTERNAL RESULT (01/18/2019) Anatomical Region Laterality Modality Endoscopy Narrative 01/18/2019 Ordered by an unspecified provider. us External Provider GI PROCEDURE ORDERABLES Final Result from Last 3 Months or Most Recently Relevant to Health Maintenance Insurance [employer] Care Teams Premium Note Interest Calculator Clerk Relationship Specialty Start Date End Date Deepika Delvalle APRN [address] [place] [address] PCP - General 11/30/20
--- OUTSIDE RECORDS SUMMARY | 2025-03-04 13:26 | XMS_ITS | Encounter Summary ---
Author Organization Healthcare Address [address] [place] [address] Care Team Providers Care Rn Or Lpn Name Role Phone Deepika Delvalle APRN Primary Care Provider [phone] Encounter Details Date Type Department Care Team (Late st Contact Info) Description 12/07/2024 Results Follow-Up [facility] [address] [place] [address] Deepika Delvalle APRN [address] [place] [address] Social History Tobacco Use Types Packs/Day Years Used Date Smoking Tobacco: Never Passive Smoke Exposure: Current Smokeless Tobacco: Never Alcohol Use Standard Drinks/Week [...] place to sleep or slept in a residential (including now)? No 05/03/2024 PHQ-9 Answer Date [...] any time in the past 12 m [facility], were you homeless or living in a residential (including now)? No 12/07/2024 Utilities Answer Date Recorded In the past 12 months has th e [employer], gas, oil, or water [employer] threatened to shut off services in your home? No 12/07/2024 PHQ-2A Answer Date Recorded Patient Health Questionnaire-2 Score 1 03/12/2023 Comments Unknown Sex and Gender Information Value Date Recorded Sex Assigned at Not on file Legal Sex Female 6:17 PM EDT Gender Identity Not on file Sexual Orientation Not on file documented as of this encounter Functional Status * Over the past 2 weeks, how often have you been bothered by any of the following problems? Question Answer Date of Assessment Author Little interest or pleasure in doing things Several days 12/07/2024 8:58 AM Rita Schumacher Feeling down, depressed, or hopeless More than half the days 12/07/2024 8:58 AM Elisabeth Schumacher Patient Health Questionnaire-2 Score 3 12/07/2024 8:58 AM Elisabeth Schumacher * Question Answer Date of Assessment Author Trouble falling or staying asleep, or sleeping too much Nearly every day 12/07/2024 8:58 AM Elisabeth Schumacher Feeling tired or having little energy Nearly every day 12/07/2024 8:58 AM Elisabeth Schumacher Poor appetite or overeating Not at all 12/07/2024 8: 58 AM Elisabeth Schumacher Feeling bad about yourself - or that you are a failure or have let yourself or your family down Not at all 12/07/2024 8:58 AM Elisabeth Schumacher Trouble concentrating on things, such as reading the newspaper or watching television Several days 12/07/2024 8:58 AM Elisabeth Schumacher Moving or speaking so slowly that other people could have noticed? Or the opposite - being so fidgety or restless that you have been moving around a lot more than usual. Not at all 12/07/2024 8:58 AM Elisabeth Siegel Thoughts that you would be better off or hurting yourself in some way Not at all 12/07/2024 8:58 AM Elisabeth Schumacher Patient Health Questionnaire-9 Score 10 12/07/2024 8:58 AM Elisabeth Schumacher * Calculated C-SSRS Risk Score (Lifetime/Recent) Answer Date of Assessment Author No Risk Indicated 12/07/2024 9:00 AM Elisabeth Siegel * If you checked off any problems on this questionnaire so far, Question Answer Date of Assessment Author How difficult have these problems made it for you to do your work, take care of things at home, or get along with other people? Somewhat difficult 12/07/2024 8:58 AM Rita Schumacher * Question Answer Date of Assessment Author 1. Wish to be (Past 1 Month) No 025 9:00 AM EDT Elisabeth Faria 2. Non-Specific Active Suici nhan Thoughts (Past 1 Month) No 12/07/2024 9:00 AM EDT Elisabeth Faria 6. Suicidal Behavior (Lifetime) No 9:00 AM EDT Elisabeth Faria documented as of this encounter Plan of Treatment Not on file documented as of this encounter Visit Diagnoses Not on filedocumented in this encounter Additional Health Concerns Assessment Noted Time PHQ-9 Depression Total Score: 10 025 8:58 AM EDT A fall risk assessment has been complete d for the patient 12/07/2024 9:00 AM EDT A Body Mass Index follow-up plan has been documented for the patient 12/07/2024 9:28 AM EDT documented as of this encounter Care Teams Rn Or Lpn Relationship Specialty Start Date End Date Deepika Delvalle APRN [address] [place] [phone] PCP - General 11/30/20 documented as of this encounter
--- OUTSIDE RECORDS SUMMARY | 2025-03-04 13:26 | XMS_ITS | Encounter Summary ---
Author Organization Healthcare Address [address] [place] [address] Care Team Providers Care Conservation Technician Name Role Phone Deepika Delvalle APRN Primary Care Provider [phone] Reason for Visit * Reason Onset Date Comments HCN Clinical Concern/Question 02/08/2025 Encounter Details Date Type Department Care Team (Late st Contact Info) Description 02/08/2025 Telephone [facility] [address] [place] [address] Deepika Delvalle APRN [address] [place] [address] HCN Clinical Concern/Question Social History Tobacco Use Types Packs/Day Years [...] place to sleep or slept in a jail (including now)? No 05/03/2024 PHQ-9 Answer Date [...] any time in the past 12 m [facility], were you homeless or living in a jail (including now)? No 12/07/2024 Utilities Answer Date Recorded In the past 12 months has th e electric, gas, oil, or water company threatened to shut off services in your home? No 12/07/2024 PHQ-2A Answer Date Recorded Patient Health Questionnaire-2 Score 1 03/12/2023 Comments Unknown Sex and Gender Information Value Date Recorded Sex Assigned at Not on file Legal Sex Female 6:17 PM EDT Gender Identity Not on file Sexual Orientation Not on file documented as of this encounter Miscellaneous Notes * Telephone Encounter - Arelis Espitia - 02/08/2025 2:46 PM EDT Pt called and informed that the dr will have to contact the main lab at [facility] to get the labs. * Telephone Encounter - Brain Sanchezcorrina Ramos - 02/08/2025 2:29 PM EDT Clinical Concern/Question Reason for Call: patient asking that recent lab results be faxed to Gemma Catalan- casino floor person that ordered the labs at #[phone].Thanks! Best contact number: [phone] (home) Optimal time of day to reach caller: ANYTIME Additional comments/information from caller: None Note: Please do not reply to this message. Follow-up communication and further actions as a result of this message need to be communicated with the patient directly, if the patient is not active onMyChart. If the patient is active on MyChart, they will receive notification of the communication/outcome via [facility]. documented in this encounter Plan of Treatment Not on [...] documented as of this encounter Care Teams Conservation Technician Relationship Specialty Start Date End Date Deepika Delvalle APRN [address] [place] [address] PCP - General 11/30/20 documented as of this encounter
--- OUTSIDE RECORDS SUMMARY | 2025-03-04 13:26 | XMS_ITS | Encounter Summary ---
Author Organization [facility] yste Address [address] [place] [address] Care Team Providers Care Permit Review Assistant Name Role Phone Mook Deepikapatrica Artis APRN Primary Care Provider Encounter Details Date Type Department Care Team (Late st Contact Info) Description 02/08/2025 Telephone [facility] [address] [place] [address] Gemma Catalan MD [address] [place], [place] [id number] Social History Tobacco Use Types Packs/Day Years [...] encounter Miscellaneous Notes * Telephone Encounter - Mely Davis MA - 02/08/2025 2:31 PM EDT FYI * Telephone Encounter - Courtney Watts - 02/08/2025 2:26 PM EDT PT CALLED TO SAY THAT SHE HAD LABS DRAWN AT AND SHE IS GOING TO HAVE THEM FAXED TO US documented in this encounter Plan of Treatment Upcoming Encounters Date Type Department Care Team (Late st Contact Info) Description 10/10/2025 9:30 AM EDT Office Visit [facility] NEUR[facility] [address] [place] [address] Rajendra Brito MD [address] [place] [address] 11/21/2025 9:30 AM EDT Office Visit [facility] [address] [place] [address] Gemma Catalan MD [address] [place], [place] [id number] documented as of this encounter Goals Goal Patient Goal Type Associated Problems Recent Progress Patient-Stated? Author Specialty Pharmacy General Goal General On track( 025 10:47 AM EDT) No Joleen Oliver, PharmD Note: Decrease in frequency and severity [...] on filedocumented in this encounter Care Teams Permit Review Assistant Relationship Specialty Start Date End Date Deepika Delvalle APRN [address] [facility] [place] [address] PCP - General 04/03/15 documented as of this encounter
--- OUTSIDE RECORDS SUMMARY | 2025-03-04 13:26 | XMS_ITS | Encounter Summary ---
Author Organization Healthcare Address [address] [place] [address] Care Team Providers Care Solution Design Engineer Name Role Phone Deepika Delvalle APRN Primary Care Provider [phone] Encounter Details Date Type Department Care Team (Latest Contact Info) Description 01/10/2025 Travel Social History Tobacco Use Types Packs/Day Years [...] place to sleep or slept in a correction (including now)? No 05/03/2024 PHQ-9 Answer Date [...] any time in the past 12 m [facility], were you homeless or living in a correction (including now)? No 12/07/2024 Utilities Answer Date Recorded In the past 12 months has e [employer], gas, oil, or water company threatened to [...] documented as of this encounter Care Teams Solution Design Engineer Relationship Specialty Start Date End Date Deepika Delvalle APRN [address] [place] [phone] PCP - General 11/30/20 documented as of this encounter
--- OUTSIDE RECORDS SUMMARY | 2025-03-04 13:26 | XMS_ITS | Patient Health Record ---
Author Organization [facility] Address [address] [place] [address] Care Team Providers Care Automatic Car Wash Attendant Name Role Phone Deepika Saeed APRN Primary Care Provider Un available Oscar Lewis II Unavailable zSelf, Referral Unavailable Unavailable Octavio Martinez Unavailable [phone] Allergies Allergen (clinical drug ingredient) Drug/Non Drug Allergy documented on EMR Reaction Allergy Type Onset Date Status naproxen stomach upset Drug Allergy Act gera Naproxen Sodium DS stomach upset Drug Allergy Active Results Component Value Reference Range Notes Urine Test LCMS Definitive Reviewed date:11/15/2024 09:33:38 AM Interpretation:+Hyd3/3 Performing Lab: Notes/Report: +Hyd3/3 Urine Test ANALYZER Reviewed date:12/23/2024 09:18:23 AM Interpretation:+OPI +HYD Performing Lab: Notes/Report: +OPI +HYD Heroin Metabolite (6AM) NEG Amphetamine (AMP) NEG Benzodiazepine (MARIAM) NEG Buprenorphine NEG Cocaine (SHANE) NEG Hydrocodone (HYD) POS Methadone (MTD) NEG Opiate (OPI) POS Oxycodone (OXY) NEG Urine Test ANALYZER Reviewed date:10/19/2024 12:10:37 PM Interpretation:+HYD +OPI Performing Lab: Notes/Report: +HYD +OPI Heroin Metabolite (6AM) NEG Amphetamine (AMP) NEG Benzodiazepine (MARIAM) NEG Buprenorphine NEG Cocaine (SHANE) NEG Hydrocodone (HYD) POS Methadone (MTD) NEG Opiate (OPI) POS Oxycodone (OXY) NEG Urine Test ANALYZER Reviewed date:08/23/2024 10:03:42 AM Interpretation:+HYD+OPI Performing Lab: Notes/Report: +HYD+OPI Heroin Metabolite (6AM) NEG Amphetamine (AMP) NEG Benzodiazepine (MARIAM) NEG Buprenorphine NEG Cocaine (SHANE) NEG Hydrocodone (HYD) POS Methadone (MTD) NEG Opiate (OPI) POS Oxycodone (OXY) NEG Urine Test ANALYZER Reviewed date:06/22/2024 08:10:46 AM Interpretation:+HYD+OPI Performing Lab: Notes/Report: +HYD+OPI Heroin Metabolite (6AM) NEG Amphetamine (AMP) NEG Benzodiazepine (MARIAM) NEG Buprenorphine NEG Cocaine (SHANE) NEG Hydrocodone (HYD) POS Methadone (MTD) NEG Opiate (OPI) POS Oxycodone (OXY) NEG Urine Test ANALYZER Reviewed date:04/26/2024 10:46:45 AM Interpretation:+HYD+OPI Performing Lab: Notes/Report: +HYD+OPI Heroin Metabolite (6AM) NEG Amphetamine (AMP) NEG Benzodiazepine (MARIAM) NEG Buprenorphine NEG Cocaine (SHANE) NEG Hydrocodone (HYD) POS Methadone (MTD) NEG Opiate (OPI) POS Oxycodone (OXY) NEG Urine Test ANALYZER Reviewed date:02/21/2025 09:53:57 AM Interpretation:+HYD Performing Lab: Notes/Report: +HYD Heroin Metabolite (6AM) NEG Amphetamine (AMP) NEG Benzodiazepine (MARIAM) NEG Buprenorphine NEG Cocaine (SHANE) NEG Hydrocodone (HYD) POS Methadone (MTD) NEG Opiate (OPI) NEG Oxycodone (OXY) NEG Reason For Referral No Information Medications Medication SIG (Take, Route, Frequency, Duration) Notes Start Date End Date Status gabapentin 600 mg 1 tab(s) orally 2 times a day; Duration: 28 days DO NOT FILL SOONER THAN 28 DAYS, (OK TO FILL EARLY, ONLY IF CLOSED) 02/21/2025 Active Acetaminophen-Hydrocodo ne Bitartrate 325 mg-7.5 mg 1 tab(s) orally 3 times a day; Duration: 28 days March 2025 RXDO NOT FILL SOONER THAN 28 DAYS, (OK TO FILL EARLY, ONLY IF CLOSED) 02/21/2025 Active Acetaminophen-Hydrocodo ne Bitartrate 325 mg-7.5 mg 1 tab(s) orally 3 times a day; Duration: 28 days February 2025 RXDO NOT FILL SOONER THAN 28 DAYS, (OK TO FILL EARLY, ONLY IF CLOSED) 02/21/2025 Active Cyclobenzaprine Hydrochloride 10 mg 1 tab(s) [...] times a day; Duration: 30 days Active traZODone 50 mg as directed orally [...] a day; Duration: 30 day(s) 07/10/2022 Active Problems Problem Type SNOMED Code ICD Code Onset Dates Problem Status W/U Status Risk Notes Problem Chronic migraine without aura, non-refractory (disorder) (720259453901341) Migraine without aura, not intractable, without status migrainosus (G43.009) Active confirmed Problem Cervical spondylosis without myelopathy (818875951) Spondylosis without myelopathy or radiculopathy, cervical region (M47.812) Active confirmed Problem Lumbosacral spondylosis without myelopathy (65330382) Spondylosis without myelopathy or radiculopathy, lumbar 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) Active confirmed Problem Lumbar radiculopathy (129408298) Radiculopathy, lumbar region (M54.16) Active confirmed Problem Long-term current use of drug therapy (654993633) Other longterm (current) drug therapy (Z79.899) Active confirmed Vital Signs Heart Rate 81 /min 02/21/2025 Blood pressure diastolic 102 mm Hg 02/21/2025 Height 66 in 02/21/2025 Blood pressure systolic 149 mm Hg 02/21/2025 Weight 163 lbs 02/21/2025 BMI 26.31 kg/m2 02/21/2025 Encounters Encounter Location Date Provider Diagnosis [facility] [address] [place] [address] 02/21/2025 Oscar Bosomworth Migraine without aura, not intractable, without status migrainosus G43.009 ; Other intermediate teacher (current) drug therapy Z79.899 ; Spondylosis without myelopathy or radiculopathy, cervical region M47.812 ; Spondylosis without myelopathy or radiculopathy, lumbar region M47.816 ; Pain in right knee M25.561 and Pain in right lower leg M79.661 [facility] [address] [place] [address] 04/26/2024 Oscar Bosomworth Migraine without aura, not intractable, without status migrainosus G43.009 ; Other intermediate teacher (current) drug therapy Z79.899 ; Spondylosis without myelopathy or radiculopathy, cervical region M47.812 ; Spondylosis without myelopathy or radiculopathy, lumbar region M47.816 ; Pain in right knee M25.561 and Pain in right lower leg M79.661 [facility] [address] [place] [address] 06/21/2024 Oscar Bosomworth Migraine without aura, not intractable, without status migrainosus G43.009 ; Other longterm (current) drug therapy Z79.899 ; Spondylosis without myelopathy or radiculopathy, cervical region M47.812 ; Spondylosis without myelopathy or radiculopathy, lumbar region M47.816 ; Pain in right knee M25.561 and Pain in right lower leg M79.661 [facility] [address] [place] [address] 08/23/2024 Oscar Bosomworth Migraine without aura, not intractable, without status migrainosus G43.009 ; Other intermediate teacher (current) drug therapy Z79.899 ; Spondylosis without myelopathy or radiculopathy, cervical region M47.812 ; Spondylosis without myelopathy or radiculopathy, lumbar region M47.816 ; Pain in right knee M25.561 and Pain in right lower leg M79.661 [facility] [address] [place] [address] 10/19/2024 Oscar Lewis Migraine without aura, not intractable, without status migrainosus G43.009 ; Other intermediate teacher (current) drug therapy Z79.899 ; Spondylosis without myelopathy or radiculopathy, cervical region M47.812 ; Spondylosis without myelopathy or radiculopathy, lumbar region M47.816 ; Pain in right knee M25.561 and Pain in right lower leg M79.661 [facility] [address] [place] [address] 12/23/2024 Oscar Lewis Migraine without aura, not intractable, without status migrainosus G43.009 ; Other longterm (current) drug therapy Z79.899 ; Spondylosis without myelopathy or radiculopathy, cervical region M47.812 ; Spondylosis without myelopathy or radiculopathy, lumbar region M47.816 ; Pain in right knee M25.561 and Pain in right lower leg M79.661 [facility] [address] [place] [address] 04/26/2024 Oscar Lewis Other longterm (current) drug therapy Z79.899 [facility] [address] [place] [address] 06/21/2024 Oscar Lewis Other longterm (current) drug therapy Z79.899 [facility] [address] [place] [address] 08/23/2024 Oscar Lewis Other longterm (current) drug therapy Z79.899 [facility] [address] [place] [address] 10/19/2024 Oscar Lewis Other intermediate teacher (current) drug therapy Z79.899 [facility] [address] [place] [address] 12/23/2024 Oscar Lewis Other intermediate teacher (current) drug therapy Z79.899 [facility] [address] [place] [address] 02/21/2025 Oscar Lewis Other intermediate teacher (current) drug therapy Z79.899 Assessments Encounter Date Diagnosis (ICD Code) Assessment Notes Treatment Notes Treatment Clinical Notes Section Notes 04/26/2024 Migraine without aura, not intractable, without status migrainosus (ICD-10 - G43.009) 04/26/24October presents today for follow up visit and medication refill. Pain generators include lumbar and cervical spondylosis, lumbar radiculopathy, chronic migraine headaches, and thoracic outlet syndrome on the left. Pt completed HEP for 6 weeks and is still doing them. Her greatest pain is in her lowback extending into her left leg down to her foot and she states that sometimes her leg gives out. Her lumbar spine shows no acute process. She continues to take flexeril, gabapentin, and Oakfield with some relief. Denies adverse side effects or recent medical issues. Nhung and VINCENTS reviewed and are compliant. Refills and F/U in 2 months. 04/26/2024 Other longterm (current) drug therapy (ICD-10 - Z79.899) 06/21/2024 Migraine without aura, not intractable, without status migrainosus (ICD-10 - G43.009) 06/21/2024October presents today for follow up visit and medication refill. Pain generators include lumbar and cervical spondylosis, lumbar radiculopathy, chronic migraine headaches, and thoracic outlet syndrome on the left. Pt completed HEP for 6 weeks and is still doing them. Her greatest pain is in her lowback extending into her left leg down to her foot and she states that sometimes her leg gives out. Rates her pain a 5/10 scale. She continues to receive 50% pain reduction for approximately four hours with the Hydrocodone. Will continue current regimen and re-evaluate the next visit. She continues to take flexeril, gabapentin, and Oakfield with some relief. Denies adverse side effects or recent medical issues. Nhung and VINCENTS reviewed and are compliant. Refills and F/U in 2 months. 06/21/2024 Other longterm (current) drug therapy (ICD-10 - Z79.899) 08/23/2024 Migraine without aura, not intractable, without status migrainosus (ICD-10 - G43.009) 08/23/2024October presents today for follow up visit [...] She continues to take flexeril, gabapentin, and Oakfield with some relief. Denies adverse side effects or recent medical issues. Nhung and UDS reviewed and are compliant. Refills and F/U in 2 months. 08/23/2024 Other intermediate teacher (current) drug therapy (ICD-10 - Z79.899) 10/19/2024 Migraine without aura, not intractable, without status migrainosus (ICD-10 - G43.009) 08/23/2024October presents today for follow up visit [...] She continues to take flexeril, gabapentin, and Oakfield with some relief. Denies adverse side effects or recent medical issues. Nhung and VINCENTS reviewed and are compliant. Refills and F/U in 2 months. 10/19/2024 Other longterm (current) drug therapy (ICD-10 - Z79.899) 12/23/2024 Migraine without aura, not intractable, without status migrainosus (ICD-10 - G43.009) 08/23/2024October presents today for follow up visit [...] She continues to take flexeril, gabapentin, and Oakfield with some relief. Denies adverse side effects [...] and general movement. She is currently prescribed Oakfield 7.5/325 mg TID and Gabapentin 600 mg [...] needed, and follow up in two months. 12/23/2024 Other longterm (current) drug therapy (ICD-10 - Z79.899) 02/21/2025 Migraine without aura, not intractable, without [...] She continues to take flexeril, gabapentin, and Oakfield with some relief. Denies adverse side effects [...] and general movement. She is currently prescribed Oakfield 7.5/325 mg TID and Gabapentin 600 mg [...] follow up in two months. 02/21/2025 Other intermediate teacher (current) drug therapy (ICD-10 - Z79.899) 02/21/2025 Other longterm (current) drug therapy (ICD-10 - Z79.899) Primary pain generator is Lumbar Spondylosis, secondary pain generator is Cervical Spondylosis, Lumbar Radiculopathy, Migraine PAYTON's, chronic pain syndrome, thoracic outlet compression syndrome 02/21/2025 1 Refill Oakfield 7.5/325mg TID 2 Refill GBP 600mg BID [...] She continues to take flexeril, gabapentin, and Oakfield with some relief. Denies adverse side effects [...] and general movement. She is currently prescribed Oakfield 7.5/325 mg TID and Gabapentin 600 mg [...] needed, and follow up in two months. 12/23/2024 Other longterm (current) drug therapy (ICD-10 - Z79.899) Primary pain generator is Lumbar Spondylosis, secondary pain generator is Cervical Spondylosis, Lumbar Radiculopathy, Migraine PAYTON's, chronic pain syndrome, thoracic outlet compression syndrome 12/23/2024 1 Refill Oakfield 7.5/325mg TID 2 Refill GBP 600mg BID 3 Refill Flexeril 10mg TID 4 Refill Voltaren gel-hold 5 F/U 2 months 08/23/2024 Alicia presents today [...] She continues to take flexeril, gabapentin, and Oakfield with some relief. Denies adverse side effects [...] and general movement. She is currently prescribed Oakfield 7.5/325 mg TID and Gabapentin 600 mg [...] needed, and follow up in two months. 08/23/2024 Other intermediate teacher (current) drug therapy (ICD-10 - Z79.899) Primary pain generator is Lumbar Spondylosis, secondary pain generator is Cervical Spondylosis, Lumbar Radiculopathy, Migraine PAYTON's, chronic pain syndrome, thoracic outlet compression syndrome 08/23/2024 1 Refill Oakfield 7.5/325mg TID 2 Refill GBP 600mg BID [...] She continues to take flexeril, gabapentin, and Oakfield with some relief. Denies adverse side effects or recent medical issues. Nhung and VINCENTS reviewed and are compliant. Refills and F/U in 2 months. 10/19/2024 Other longterm (current) drug therapy (ICD-10 - Z79.899) Primary pain generator is Lumbar Spondylosis, secondary pain generator is Cervical Spondylosis, Lumbar Radiculopathy, Migraine PAYTON's, chronic pain syndrome, thoracic outlet compression syndrome 08/23/2024 1 Refill Oakfield 7.5/325mg TID 2 Refill GBP 600mg BID [...] She continues to take flexeril, gabapentin, and Oakfield with some relief. Denies adverse side effects or recent medical issues. Nhung and VINCENTS reviewed and are compliant. Refills and F/U in 2 months. 08/23/2024 Spondylosis without myelopathy or radiculopathy, cervical region [...] She continues to take flexeril, gabapentin, and Oakfield with some relief. Denies adverse side effects or recent medical issues. Nhung and JESUS ALBERTO reviewed and are compliant. Refills and F/U in 2 months. 04/26/2024 Spondylosis without myelopathy or radiculopathy, cervical region (ICD-10 - M47.812) 04/26/24October presents today for follow up visit and medication refill. Pain generators include lumbar and cervical spondylosis, lumbar radiculopathy, chronic migraine headaches, and thoracic outlet syndrome on the left. Pt completed HEP for 6 weeks and is still doing them. Her greatest pain is in her lowback extending into her left leg down to her foot and she states that sometimes her leg gives out. Her lumbar spine shows no acute process. She continues to take flexeril, gabapentin, and Oakfield with some relief. Denies adverse side effects or recent medical issues. Nhung and JESUS ALBERTO reviewed and are compliant. Refills and F/U in 2 months. 06/21/2024 Spondylosis without myelopathy or radiculopathy, cervical region (ICD-10 - M47.812) 06/21/2024October presents today for follow up visit and medication refill. Pain generators include lumbar and cervical spondylosis, lumbar radiculopathy, chronic migraine headaches, and thoracic outlet syndrome on the left. Pt completed HEP for 6 weeks and is still doing them. Her greatest pain is in her lowback extending into her left leg down to her foot and she states that sometimes her leg gives out. Rates her pain a 5/10 scale. She continues to receive 50% pain reduction for approximately four hours with the Hydrocodone. Will continue current regimen and re-evaluate the next visit. She continues to take flexeril, gabapentin, and Oakfield with some relief. Denies adverse side effects or recent medical issues. Nhung and JESUS ALBERTO reviewed and are compliant. Refills and F/U in 2 months. 04/26/2024 Other intermediate teacher (current) drug therapy (ICD-10 - Z79.899) Primary pain generator is Lumbar Spondylosis, secondary pain generator is Cervical Spondylosis, Lumbar Radiculopathy, Migraine PAYTON's, chronic pain syndrome, thoracic outlet compression syndrome 04/26/24 1 Refill Oakfield 7.5/325mg TID 2 Refill GBP 600mg BID 3 Refill Flexeril 10mg TID 4 Refill Voltaren gel 5 F/U 2 months 04/26/24October presents today for follow up visit and medication refill. Pain generators include lumbar and cervical spondylosis, lumbar radiculopathy, chronic migraine headaches, and thoracic outlet syndrome on the left. Pt completed HEP for 6 weeks and is still doing them. Her greatest pain is in her lowback extending into her left leg down to her foot and she states that sometimes her leg gives out. Her lumbar spine shows no acute process. She continues to take flexeril, gabapentin, and Oakfield with some relief. Denies adverse side effects or recent medical issues. Nhung and UDS reviewed and are compliant. Refills and F/U in 2 months. 06/21/2024 Other intermediate teacher (current) drug therapy (ICD-10 - Z79.899) Primary pain generator is Lumbar Spondylosis, secondary pain generator is Cervical Spondylosis, Lumbar Radiculopathy, Migraine PAYTON's, chronic pain syndrome, thoracic outlet compression syndrome 06/21/2024 1 Refill Oakfield 7.5/325mg TID 2 Refill GBP 600mg BID 3 Refill Flexeril 10mg TID 4 Refill Voltaren gel 5 F/U 2 months 06/21/2024October presents today for follow up visit and medication refill. Pain generators include lumbar and cervical spondylosis, lumbar radiculopathy, chronic migraine headaches, and thoracic outlet syndrome on the left. Pt completed HEP for 6 weeks and is still doing them. Her greatest pain is in her lowback extending into her left leg down to her foot and she states that sometimes her leg gives out. Rates her pain a 5/10 scale. She continues to receive 50% pain reduction for approximately four hours with the Hydrocodone. Will continue current regimen and re-evaluate the next visit. She continues to take flexeril, gabapentin, and Oakfield with some relief. Denies adverse side effects or recent medical issues. Nhung and UDS reviewed and are compliant. Refills and F/U in 2 months. 06/21/2024 Spondylosis without myelopathy or radiculopathy, lumbar region (ICD-10 - M47.816) 06/21/2024October presents today for follow up visit and medication refill. Pain generators include lumbar and cervical spondylosis, lumbar radiculopathy, chronic migraine headaches, and thoracic outlet syndrome on the left. Pt completed HEP for 6 weeks and is still doing them. Her greatest pain is in her lowback extending into her left leg down to her foot and she states that sometimes her leg gives out. Rates her pain a 5/10 scale. She continues to receive 50% pain reduction for approximately four hours with the Hydrocodone. Will continue current regimen and re-evaluate the next visit. She continues to take flexeril, gabapentin, and Oakfield with some relief. Denies adverse side effects or recent medical issues. Nhung and JESUS ALBERTO reviewed and are compliant. Refills and F/U in 2 months. 04/26/2024 Spondylosis without myelopathy or radiculopathy, lumbar region (ICD-10 - M47.816) 04/26/24October presents today for follow up visit and medication refill. Pain generators include lumbar and cervical spondylosis, lumbar radiculopathy, chronic migraine headaches, and thoracic outlet syndrome on the left. Pt completed HEP for 6 weeks and is still doing them. Her greatest pain is in her lowback extending into her left leg down to her foot and she states that sometimes her leg gives out. Her lumbar spine shows no acute process. She continues to take flexeril, gabapentin, and Oakfield with some relief. Denies adverse side effects or recent medical issues. Nhung and VINCENTS reviewed and are compliant. Refills and F/U in 2 months. 08/23/2024 Spondylosis without myelopathy or radiculopathy, lumbar region [...] She continues to take flexeril, gabapentin, and [place]field with some relief. Denies adverse side effects or recent medical issues. Nhung and JESUS ALBERTO reviewed and are compliant. Refills and F/U in 2 months. 10/19/2024 Spondylosis without myelopathy or radiculopathy, cervical region [...] She continues to take flexeril, gabapentin, and Oakfield with some relief. Denies adverse side effects or recent medical issues. Nhung and JESUS ALBERTO reviewed and are compliant. Refills and F/U in 2 months. 12/23/2024 Spondylosis without myelopathy or radiculopathy, cervical region [...] She continues to take flexeril, gabapentin, and Oakfield with some relief. Denies adverse side effects or recent medical issues. Nhung and JESUS ALBERTO reviewed and are compliant. Refills and F/U [...] and general movement. She is currently prescribed Oakfield 7.5/325 mg TID and Gabapentin 600 mg [...] She continues to take flexeril, gabapentin, and Oakfield with some relief. Denies adverse side effects [...] and general movement. She is currently prescribed Oakfield 7.5/325 mg TID and Gabapentin 600 mg [...] She continues to take flexeril, gabapentin, and Oakfield with some relief. Denies adverse side effects [...] and general movement. She is currently prescribed Oakfield 7.5/325 mg TID and Gabapentin 600 mg [...] needed, and follow up in two months. 12/23/2024 Spondylosis without myelopathy or radiculopathy, lumbar region [...] She continues to take flexeril, gabapentin, and Oakfield with some relief. Denies adverse side effects [...] and general movement. She is currently prescribed Oakfield 7.5/325 mg TID and Gabapentin 600 mg [...] needed, and follow up in two months. 10/19/2024 Spondylosis without myelopathy or radiculopathy, lumbar region [...] She continues to take flexeril, gabapentin, and Oakfield with some relief. Denies adverse side effects or recent medical issues. Nhung and VINCENTS reviewed and are compliant. Refills and F/U in 2 months. 08/23/2024 Pain in right knee (ICD-10 - M25.561) [...] She continues to take flexeril, gabapentin, and Oakfield with some relief. Denies adverse side effects or recent medical issues. Nhung and VINCENTS reviewed and are compliant. Refills and F/U in 2 months. 06/21/2024 Pain in right knee (ICD-10 - M25.561) 06/21/2024October presents today for follow up visit and medication refill. Pain generators include lumbar and cervical spondylosis, lumbar radiculopathy, chronic migraine headaches, and thoracic outlet syndrome on the left. Pt completed HEP for 6 weeks and is still doing them. Her greatest pain is in her lowback extending into her left leg down to her foot and she states that sometimes her leg gives out. Rates her pain a 5/10 scale. She continues to receive 50% pain reduction for approximately four hours with the Hydrocodone. Will continue current regimen and re-evaluate the next visit. She continues to take flexeril, gabapentin, and Oakfield with some relief. Denies adverse side effects or recent medical issues. Nhung and JESUS ALBERTO reviewed and are compliant. Refills and F/U in 2 months. 04/26/2024 Pain in right knee (ICD-10 - M25.561) 04/26/24October presents today for follow up visit and medication refill. Pain generators include lumbar and cervical spondylosis, lumbar radiculopathy, chronic migraine headaches, and thoracic outlet syndrome on the left. Pt completed HEP for 6 weeks and is still doing them. Her greatest pain is in her lowback extending into her left leg down to her foot and she states that sometimes her leg gives out. Her lumbar spine shows no acute process. She continues to take flexeril, gabapentin, and Oakfield with some relief. Denies adverse side effects or recent medical issues. Nhung and UDS reviewed and are compliant. Refills and F/U in 2 months. 04/26/2024 Pain in right lower leg (ICD-10 - M79.661) 04/26/24October presents today for follow up visit and medication refill. Pain generators include lumbar and cervical spondylosis, lumbar radiculopathy, chronic migraine headaches, and thoracic outlet syndrome on the left. Pt completed HEP for 6 weeks and is still doing them. Her greatest pain is in her lowback extending into her left leg down to her foot and she states that sometimes her leg gives out. Her lumbar spine shows no acute process. She continues to take flexeril, gabapentin, and Oakfield with some relief. Denies adverse side effects or recent medical issues. Nhung and UDS reviewed and are compliant. Refills and F/U in 2 months. 06/21/2024 Pain in right lower leg (ICD-10 - M79.661) 06/21/2024October presents today for follow up visit and medication refill. Pain generators include lumbar and cervical spondylosis, lumbar radiculopathy, chronic migraine headaches, and thoracic outlet syndrome on the left. Pt completed HEP for 6 weeks and is still doing them. Her greatest pain is in her lowback extending into her left leg down to her foot and she states that sometimes her leg gives out. Rates her pain a 5/10 scale. She continues to receive 50% pain reduction for approximately four hours with the Hydrocodone. Will continue current regimen and re-evaluate the next visit. She continues to take flexeril, gabapentin, and Oakfield with some relief. Denies adverse side effects or recent medical issues. Nhung and UDS reviewed and are compliant. Refills and F/U in 2 months. 08/23/2024 Pain in right lower leg (ICD-10 - [...] She continues to take flexeril, gabapentin, and Oakfield with some relief. Denies adverse side effects or recent medical issues. Nhung and JESUS ALBERTO reviewed and are compliant. Refills and F/U in 2 months. 10/19/2024 Pain in right knee (ICD-10 - M25.561) [...] She continues to take flexeril, gabapentin, and Oakfield with some relief. Denies adverse side effects or recent medical issues. Nhung and JESUS ALBERTO reviewed and are compliant. Refills and F/U in 2 months. 12/23/2024 Pain in right knee (ICD-10 - M25.561) [...] She continues to take flexeril, gabapentin, and Oakfield with some relief. Denies adverse side effects or recent medical issues. Nhung and JESUS ALBERTO reviewed and are compliant. Refills and F/U [...] and general movement. She is currently prescribed Oakfield 7.5/325 mg TID and Gabapentin 600 mg [...] Pain in right knee (ICD-10 - M25.561) 08/23/2024 Alicia presents today for follow up [...] She continues to take flexeril, gabapentin, and Oakfield with some relief. Denies adverse side effects [...] and general movement. She is currently prescribed Oakfield 7.5/325 mg TID and Gabapentin 600 mg [...] She continues to take flexeril, gabapentin, and Oakfield with some relief. Denies adverse side effects [...] and general movement. She is currently prescribed Oakfield 7.5/325 mg TID and Gabapentin 600 mg [...] needed, and follow up in two months. 12/23/2024 Pain in right lower leg (ICD-10 - [...] She continues to take flexeril, gabapentin, and Oakfield with some relief. Denies adverse side effects [...] and general movement. She is currently prescribed Oakfield 7.5/325 mg TID and Gabapentin 600 mg [...] needed, and follow up in two months. 10/19/2024 Pain in right lower leg (ICD-10 - [...] She continues to take flexeril, gabapentin, and Oakfield with some relief. Denies adverse side effects or recent medical issues. Nhung and UDS reviewed and are compliant. Refills and F/U in 2 months. 04/19/2024 02/29/24October presents today for follow up visit and medication refill. Pain generators include lumbar and cervical spondylosis, lumbar radiculopathy, chronic migraine headaches, and thoracic outlet syndrome on the left. Pt completed HEP for 6 weeks and is still doing them. Her greatest pain is in her lowback extending into her left leg down to her foot and she states that sometimes her leg gives out. Her lumbar spine shows no acute process. She continues to take flexeril, gabapentin, and Oakfield with some relief. Denies adverse side effects or recent medical issues. Nhung and UDS reviewed and are compliant. Refills and F/U in 2 months. 12/14/2024 08/23/2024October presents today for follow up visit [...] She continues to take flexeril, gabapentin, and Oakfield with some relief. Denies adverse side effects or recent medical issues. Nhung and UDS reviewed and are compliant. Refills and F/U in 2 months. Plan Of Treatment Pending Test Test Name Order Date Urine Test LCMS Definitive 02/21/2025 Next Appt Details Provider Name:Oscar foreman, 04/19/2025 09:45:00 AM, [address], [address], [place], [address], Insurance Providers Payer Name Payer Address Payer Phone Subscriber Number Group Number Insured Name Patient Relationship to Insured Coverage Start Date Coverage End Date [facility] [address] [place] [address] [id number] BLANCAXIAO WaldoOctober Self - patient is the insured 9 Medical (General) History Medical History History ICD Code Migraine Headaches -1992 / managed by Dr Baxter HTN -2004 / managed by Deepika VILLASENOR N-[place] Reflux -1999 / managed by Dr.Karen Skaggs in Depression-1997 / managed by Deepika ALBRECHTPN-[place] Anxiety-1997 / managed by Deepika HOLRBOOK-[place] Surgical History Surgery Date(Month/Year) cholecystectomy / [facility] / (OP) 2014 Hysterectomy / [facility] / 4 day s herlinda 2012 LT foot x2 / [facility] / (OP)x2 200 5 Hospitalization History Reason Date(Month/Year)
--- OUTSIDE RECORDS SUMMARY | 2025-03-04 13:27 | XMS_ITS | Encounter Summary ---
Author Organization [employer] ([place], [place], [place], [place]) Address [address] [place] [address] Care Team Providers Care It Support Specialist Name Role Phone Unavailable Primary Care Provider Unavailabl e Reason for Visit * Reason Comments Medication Refill Encounter Details Date Type Department Care Team (Late st Contact Info) Description 02/06/2023 Refill [facility] Gastroenterology [address] [place] [address] Amanda Reaves, CUSTOMER CARE AGENT [address] [place] [address] Social History Tobacco Use Types Packs/Day Years Used Date Smoking Tobacco: Never Assessed Comments Unknown Sex and Gender Information Value Date Recorded Sex Assigned at Not on file Legal Sex Female 3:43 PM CDT Gender Identity Not on file Sexual Orientation Not on file documented as of this encounter Plan of Treatment Not on file documented as of this encounter Visit Diagnoses Not on filedocumented in this encounter
--- OUTSIDE RECORDS SUMMARY | 2025-03-04 13:27 | XMS_ITS | Encounter Summary ---
Author Organization [employer] ([place], [place], [place], [place]) Address [address] [place] [address] Care Team Providers Care Editing Intern Name Role Phone Unavailable Primary Care Provider Unavailabl e Encounter Details Date Type Department Care Team (Late st Contact Info) Description 01/18/2019 Transcribed Document [facility] Family Medicine [address] [place] [address] ProviderHerlinda MD [address], [place] [address] Social History Tobacco Use Types Packs/Day Years Used Date Smoking Tobacco: Never Assessed Comments Unknown Sex and Gender Information Value Date Recorded Sex Assigned at Not on file Legal Sex Female 3:43 PM CDT Gender Identity Not on file Sexual Orientation Not on file documented as of this encounter Miscellaneous Notes * Cerner Conversion Note - Historical ProviderMD - 01/18/2019 7:30 AM CDT Pre Procedure Adult Entered On: 01/18/2019 7:43 EDT Performed On: 01/18/2019 7:30 EDT by Sis Alcala RN Height and Weight, Clinical Dosing Height Source : Stated Height Entry Format : [place] Height, Feet : 5 ft(Converted to: 152 cm, 60 Inch) Height, Inches : 7 Inch(Converted to: 0 ft 7 Inch, 17.78 cm) Clinical Height : 170.18 cm Weight Source : Standing scale Weight Entry Format : [place] Clinical Dosing Weight : 69.55 kg Weight, Pounds : 153 lb Body Surface Area (BSA) : 1.81 m2 Body Mass Index : 24 kg/m2 Lesage Body Weight : 61 kg Sis Alcala RN - 01/18/2019 7:30 EDT Health Histories Smoking Status : Never (less than 100 in lifetime; none in last 30 days) Smokeless Tobacco Status : Never Sis Alcala RN - 01/18/2019 7:30 EDT Social History (As Of: 01/18/2019 07:43:04 EDT) Tobacco: Smoking Status Never smoker. (Last Updated: 01/10/2016 13:04:14 EDT by JUNIE Orellana RN) Alcohol: Alcohol Use Frequency Rarely. (Last Updated: 01/10/2016 13:04:21 EDT by JUNIE Orellana RN) Substance Abuse: Drug Use Hx: No. Use in Last 12 Months: No. (Last Updated: 01/10/2016 13:04:28 EDT by JUNIE Orellana RN) Nutrition/Health: Caffeine intake amount: none. (Last Updated: 01/10/2016 13:04:38 EDT by JUNIE Orellana RN) Infectious Disease History Infectious Disease History : Chicken pox/Shingles Fever/Chills Last 48 Hours : No Travel To Regions with Travel Advisories : No Travel Outside [place] Within Last 30 Days : No Contact With Traveler to Advisory Region : No Tuberculosis Symptoms : None Sis Alcala RN - 01/18/2019 7:30 EDT Anesthesia/Transfusion History Family History of Anesthesia Reaction : No prior transfusion(s) Transfusion History : Prior anesthesia without reaction Family History of Anesthesia Reaction : None Sis Alcala RN - 01/18/2019 7:30 EDT Functional Assessment Living Situation : Home Patient Lives With : Other: adult chldren Sensory Deficits : None Current Home Treatments : None Home Equipment : Cane, Crutches Sis Alcala RN - 01/18/2019 7:30 EDT Psychosocial History Do You Have a History of the Following? : Depression Currently in Unsafe Situation : No Tried to Harm Yourself in the Past? : No Thoughts of Harming/Killing Yourself : No Sis Alcala RN - 01/18/2019 7:30 EDT Advance Directive Patient has Advance Directive *Q : No, patient refuses Advance Directive information Sis Alcala RN - 01/18/2019 7:30 EDT General Info Want Family/Rep/Phys Notified of Admit : Yes Name/Contact Info Fam/Rep Notified Adm : Ria Melvin Name/Contact Info Physician Notified Adm : [phone] Emergency Contact #1 : Ria Melvin Emergency Contact #1 Emergency Contact #1 Relationship : mother Emergency Contact #2 : na Emergency Contact #2 Phone Number : na Emergency Contact #2 Relationship : na Primary Language : Kosovan Preferred Communication Mode : Verbal Communication Barrier : None Sis Alcala RN - 01/18/2019 7:30 EDT Sleep Apnea Risk Assmt Hx of Obstructive Sleep Apnea Diagnosis : No Snore Loudly : No Tired, Fatigued, or Sleepy During Day : No Observed Stopping Breathing During Sleep : No Have/Are Being Treated for Hypertension : No BMI Greater Than 35 kg/m2 : No Age over 50 Years Old : No Neck Circumference Greater Than 40 cm : No Gender Male : No STOP-BANG Sleep Apnea Risk Level Score : 0 Sis Alcala RN - 01/18/2019 7:30 EDT Dimitri Scale Dimitri Sensory Perception : No impairment Dimitri Moisture : Rarely moist Dimitri Activity : Walks frequently Dimitri Mobility : No limitation Dimitri Nutrition : Excellent Dimitri Friction and Shear : No apparent problem Dimitri Score : 23 Sis Alcala RN - 01/18/2019 7:30 EDT Fall Risk Scales ABCs Fall Injury Risk Identification : None REID Hx Falls Immediate/Within 3 Months : Yes Reid Secondary Diagnosis : No REID Use of Ambulatory Aid : Crutches/Cane/Walker REID IV Therapy or IV Access : Yes Reid Gait/Transferring : Normal, bedrest, immobile Reid Mental Status : Oriented to own ability Reid Fall Risk Score : 60 REID Fall Scale Risk Level : 0-24 Low Risk Erie Fall Interventions : Bed in low position, Personal items within reach, Room free of clutter/spills, Upper side-rails up, Wheels locked Sis Alcala RN - 01/18/2019 7:30 EDT Valuables and Belongings Valuables and Belongings : Clothing Clothing : Common streetwear Clothing Disposition : With patient Sis Alcala RN - 01/18/2019 7:30 EDT documented in this encounter Plan of Treatment Not on file documented as of this encounter Visit Diagnoses Not on filedocumented in this encounter
--- OUTSIDE RECORDS SUMMARY | 2025-03-04 13:27 | XMS_ITS | Encounter Summary ---
Author Organization [employer] ([place], [place], [place], [place]) Address [address] [place] [address] Care Team Providers Care Cook Fast Food Name Role Phone Unavailable Primary Care Provider Unavailabl e Reason for Visit * Reason Comments Medication Refill Encounter Details Date Type Department Care Team (Late st Contact Info) Description 04/17/2024 Refill [facility]enterology [address] [place] [address] Amanda Reaves, PRESCHOOL ASSISTANT TEACHER [address] [place] [address] Gastroesophageal reflux disease without esophagitis Social History Tobacco Use Types Packs/Day Years Used Date Smoking Tobacco: Never Smokeless Tobacco: Never Alcohol Use Standard Drinks/Week Comments Never 0 (1 standard drink = 0.6 oz pur e alcohol) Food Insecurity Answer Date Recorded Food run out past 12 months Not on file 07/20 Food did not last past 12 months Not on file 08/07/2023 Employment Answer Date Recorded Help finding and keeping a job Not on file 0 08/07/2023 Family and Community Support Answer León e Recorded Help with Day to Day Activities Not on file 08/07/2023 Feeling Lonely or Isolated Not on file 08/07 Educational Attainment Answer Date Derik rded Speak language other than Macedonian at home Not on file 08/07/2023 Want help with school or training Not on file 08/07/2023 Substance Use Answer Date Recorded Used prescription meds for non-medical reasons N ot on file 08/07/2023 Used illegal drugs past 12 months Not on file 08/07/2023 Comments Unknown Sex and Gender Information Value Date Recorded Sex Assigned at Not on file Legal Sex Female 3:43 PM CDT Gender Identity Not on file Sexual Orientation Not on file documented as of this encounter Plan of Treatment Not on file documented as of this encounter Visit Diagnoses Diagnosis Gastroesophageal reflux disease without esophagitis Esophageal reflux documented in this encounter
--- OUTSIDE RECORDS SUMMARY | 2025-03-04 13:27 | XMS_ITS | Encounter Summary ---
Author Organization [employer] ([place], [place], [place], [place]) Address [address] [place] [address] Care Team Providers Care Fashion Director Name Role Phone Unavailable Primary Care Provider Unavailabl e Encounter Details Date Type Department Care Team (Late st Contact Info) Description 01/18/2019 Transcribed Document [facility] [place] [address] [place] [address] ProviderHerlinda MD [address] [place] [address] [phone] Social History Tobacco Use Types Packs/Day Years Used Date Smoking Tobacco: Never Assessed Comments Unknown Sex and Gender Information Value Date Recorded Sex Assigned at Not on file Legal Sex Female 3:43 PM CDT Gender Identity Not on file Sexual Orientation Not on file documented as of this encounter Miscellaneous Notes * Cerner Conversion Note - Historical ProviderMD - 01/18/2019 9:23 AM CDT [address] [address] VINCENT OCTOBER NEENA :1975 Visit Time:01/18/2019 What to do next Your Diagnosis Personal history of colonic polyps, Personal history of colonic polyps Instructions From Your Care Team Diet after Discharge: Resume usual diet as tolerated, _, _ Fluid Restriction after Discharge: _ Activity after Discharge: As tolerated, Rest and relax today, No strenuous activity Lifting Restrictions: _ Weight Bearing: _ Bedrest: _ Driving after Discharge: Do not drive May Return to Work/School: Showering/Bathing: May shower, _ Notify Provider of: Wound/Incision Care after Discharge: _, _ Medical Equipment for Home Use: Home Health Services: Community Services: Follow-Up Appointments Follow Up with TOM ANDRES MD-GAE When Within As needed Where: [address] [facility] [address] [place] [address]- Medications What How Much When Instructions Next Dose acetaminophen-hydrocodone (Lortab 5/ 325) Oral Every 6 Hours cetirizine (cetirizine 10 mg oral tablet) Oral Two Times A Day cyanocobalamin (Vitamin B-12 1000 mcg sublingual tablet) SubLINgual Every Day cyclobenzaprine 10 Milligram(s) Oral Three Times A Day gabapentin 600 Milligram(s) Oral Three Times A Day Non Formulary (Non Formulary med) 10 Milligram(s) Every Day Estrodiol pantoprazole 40 Milligram(s) Oral Two Times A Day rizatriptan 10 Milligram(s) Oral Every Day as needed for as needed for migraine headache SUMAtriptan 50 Milligram(s) Oral Every Day as needed for as needed for migraine headache topiramate 100 Milligram(s) Oral Two Times A Day vitamin E (vitamin E 400 intl units oral capsule) Oral Every Day Take your medications faithfully. Do NOT skip medication. Do NOT stop taking medications without the direction of a physician. Carry a list of your medications with you at all times, and take this medication list with you to your first follow up visit. Report any side effects. Avoid herbal remedies unless discussed with your physician. As part of your treatment plan, your physician may have prescribed a limited course of a controlled substance. This medication may be given to help people with moderate or severe pain or for other medical conditions, but there are risks involved with treatment. Common side effects may include nausea, constipation, drowsiness, sweating, itching, dry mouth, and rash. More serious side effects may include cognitive and motor impairment, like problems with thinking, concentrating, alertness, and movement (e.g. slowed reflexes), and driving and operating heavy machinery can be dangerous. It is important for you to talk to your physician if you have these side effects or questions. These controlled substances can produce physical dependence and be habit-forming if taken for an extended period of time, which means that the body has gotten used to them and may experience withdrawal symptoms if they are abruptly stopped. Withdrawal symptoms can include runny nose, sweating, goose bumps, diarrhea, abdominal cramping, rapid heartbeat, difficulty sleeping, and nervousness. Please dispose of unused and medications per pharmacy guidance. Education Materials Hemorrhoids Hemorrhoids are swollen veins in and around the rectum or anus. There are two types of hemorrhoids: ??? Internal hemorrhoids. These occur in the veins that are just inside the rectum. They may poke through to the outside and become irritated and painful. ??? External hemorrhoids. These occur in the veins that are outside of the anus and can be felt as a painful swelling or hard lump near the anus. Most hemorrhoids do not cause serious problems, and they can be managed with home treatments such as diet and lifestyle changes. If home treatments do not help your symptoms, procedures can be done to shrink or remove the hemorrhoids. What are the causes? This condition is caused by increased pressure in the anal area. This pressure may result from various things, including: ??? Constipation. ??? Straining to have a bowel movement. ??? Diarrhea. ??? . ??? Obesity. ??? Sitting for long periods of time. ??? Heavy lifting or other activity that causes you to strain. ??? Anal sex. What are the signs or symptoms? Symptoms of this condition include: ??? Pain. ??? Anal itching or irritation. ??? Rectal bleeding. ??? Leakage of stool (feces). ??? Anal swelling. ??? One or more lumps around the anus. How is this diagnosed? This condition can often be diagnosed through a visual exam. Other exams or tests may also be done, such as: ??? Examination of the rectal area with a gloved hand (digital rectal exam). ??? Examination of the anal canal using a small tube (anoscope). ??? A blood test, if you have lost a significant amount of blood. ??? A test to look inside the colon (sigmoidoscopy or colonoscopy). How is this treated? This condition can usually be treated at home. However, various procedures may be done if dietary changes, lifestyle changes, and other home treatments do not help your symptoms. These procedures can help make the hemorrhoids smaller or remove them completely. Some of these procedures involve surgery, and others do not. Common procedures include: ??? Rubber band ligation. Rubber bands are placed at the base of the hemorrhoids to cut off the blood supply to them. ??? Sclerotherapy. Medicine is injected into the hemorrhoids to shrink them. ??? Infrared coagulation. A type of light energy is used to get rid of the hemorrhoids. ??? Hemorrhoidectomy surgery. The hemorrhoids are surgically removed, and the veins that supply them are tied off. ??? Stapled hemorrhoidopexy surgery. A circular stapling device is used to remove the hemorrhoids and use manisha to cut off the blood supply to them. Follow these instructions at home: Eating and drinking ??? Eat foods that have a lot of fiber in them, such as whole grains, beans, nuts, fruits, and vegetables. Ask your health care provider about taking products that have added fiber (fiber supplements). ??? Drink enough fluid to keep your urine clear or pale yellow. Managing pain and swelling ??? Take warm sitz baths for 20 minutes, 3???4 times a day to ease pain and discomfort. ??? If directed, apply ice to the affected area. Using ice packs between sitz baths may be helpful. ? Put ice in a plastic bag. ? Place a towel between your skin and the bag. ? Leave the ice on for 20 minutes, 2???3 times a day. General instructions ??? Take iqdp-hwr-jixtiyc and prescription medicines only as told by your health care provider. ??? Use medicated creams or suppositories as told. ??? Exercise regularly. ??? Go to the bathroom when you have the urge to have a bowel movement. Do not wait. ??? Avoid straining to have bowel movements. ??? Keep the anal area dry and clean. Use wet toilet paper or moist towelettes after a bowel movement. ??? Do not sit on the toilet for long periods of time. This increases blood pooling and pain. Contact a health care provider if: ??? You have increasing pain and swelling that are not controlled by treatment or medicine. ??? You have uncontrolled bleeding. ??? You have difficulty having a bowel movement, or you are unable to have a bowel movement. ??? You have pain or inflammation outside the area of the hemorrhoids. This information is not intended to replace advice given to you by your health care provider. Make sure you discuss any questions you have with your health care provider. Document Released: 07/03/2001 Document Revised: 12/03/2016 Document Reviewed: 03/19/2016 [employer] Interactive Patient Education ?? 2019 [employer]. Colonoscopy, Adult, Care After This sheet gives you information about how to care for yourself after your procedure. Your health care provider may also give you more specific instructions. If you have problems or questions, contact your health care provider. What can I expect after the procedure? After the procedure, it is common to have: ??? A small amount of blood in your stool for 24 hours after the procedure. ??? Some gas. ??? Mild abdominal cramping or bloating. Follow these instructions at home: General instructions ??? For the first 24 hours after the procedure: ? Do not drive or use machinery. ? Do not sign important documents. ? Do not drink alcohol. ? Do your regular daily activities at a slower pace than normal. ? Eat soft, zzsg-uc-alnema foods. ? Rest often. ??? Take xvrf-bxh-vofrxww or prescription medicines only as told by your health care provider. ??? It is up to you to get the results of your procedure. Ask your health care provider, or the department performing the procedure, when your results will be ready. Relieving cramping and bloating ??? Try walking around when you have cramps or feel bloated. ??? Apply heat to your abdomen as told by your health care provider. Use a heat source that your health care provider recommends, such as a moist heat pack or a heating pad. ? Place a towel between your skin and the heat source. ? Leave the heat on for 20???30 minutes. ? Remove the heat if your skin turns bright red. This is especially important if you are unable to feel pain, heat, or cold. You may have a greater risk of getting burned. Eating and drinking ??? Drink enough fluid to keep your urine clear or pale yellow. ??? Resume your normal diet as instructed by your health care provider. Avoid heavy or fried foods that are hard to digest. ??? Avoid drinking alcohol for as long as instructed by your health care provider. Contact a health care provider if: ??? You have blood in your stool 2???3 days after the procedure. Get help right away if: ??? You have more than a small spotting of blood in your stool. ??? You pass large blood clots in your stool. ??? Your abdomen is swollen. ??? You have nausea or vomiting. ??? You have a fever. ??? You have increasing abdominal pain that is not relieved with medicine. This information is not intended to replace advice given to you by your health care provider. Make sure you discuss any questions you have with your health care provider. Document Released: 02/17/2005 Document Revised: 03/30/2017 Document Reviewed: 09/16/2016 InExchange Interactive Patient Education ?? 2018 [employer]. Emergency Awareness and Preventative Care STROKE is an EMERGENCY Every Minute Counts Act FAST and Check for these signs: FACE Does the face look uneven? ARM Does one arm drift down? SPEECH Does their speech sound strange? TIME Call at any sign of stroke Stroke Risk Factors Atrial Fibrillation (irregular heartbeat) Diabetes Family history of stroke Heart Disease Heavy alcohol use High Blood Pressure High Cholesterol Physical inactivity and obesity Smoking Cigarette Smoking The facts are clear, cigarette smoking will shorten your life. Smoking can cause many illnesses along the way. As a healthcare provider, we recommend that you stop smoking. Assistance with quitting is available by contacting 0-068-YKYD-NOW. This is a free resource providing counseling, support, and referral. Or you may contact your personal physician. National Suicide Prevention Lifeline: The National Suicide Prevention Lifeline is a national network of local crisis centers that provides free and confidential emotional support to people in suicidal crisis or emotional distress 24 hours a day, 7 days a week. Don't Wait! Stop a Heart Attack Before it Starts What is a heart attack? A heart attack is damage or to a part of the heart from severely decreased or lack of blood flow to the heart. Over time, arteries can become narrow from the buildup of fat and cholesterol, which is called plaque. The plaque can rupture causing a blood clot to form. When the blood clot forms, the artery can become severely narrowed or completely blocked, causing a heart attack. Heart attack is the leading cause of in the [place]. 85% of muscle damage occurs within the first 2 hours. Delay in the recognition of heart attack symptoms increases the chances of . Know the early symptoms of a heart attack: Nausea Feeling of fullness in chest Jaw Pain Pain that travels down one or both arms Fatigue/being tired Anxiety Back Pain Chest pressure, squeezing, or discomfort Shortness of breath Sweating, or a cold sweat Feeling of impending doom There are unusual signs of a heart attack, too! Women, the elderly, and diabetics may present with atypical symptoms: Fainting/dizziness Weakness Confusion Risk Factors for a Heart Attack Some heart disease risk factors, such as age and family history, cannot be changed. Others, like smoking and lack of exercise, can be changed. Smoking High Cholesterol High Blood Pressure Family History Obesity Age Gender (Males are at higher risk) Lack of Exercise Diabetes Diet Stress Excessive Alcohol Intake If you or someone you know is experiencing the signs and symptoms of a heart attack, DON???T DELAY. Call immediately and seek help. If someone collapses, perform CPR! Do not attempt to drive if you are having symptoms of heart attack. Hands-Only CPR Why Hands-Only CPR? Hands-Only CPR has been shown to be as effective as conventional CPR for cardiac arrests that occur outside of a hospital. Survival depends on immediately receiving CPR from someone nearby. How do you perform Hands-Only CPR? There are two easy steps: Call if you see a teen or adult collapse Push hard and fast in the center of the chest at a beat of 100 beats per minute. Save a life! 4 WAYS TO GET AHEAD OF SEPSIS SEPSIS is a MEDICAL EMERGENCY. Time matters! Infections put you and your family at risk for a life-threatening condition called sepsis. Sepsis is the body's extreme response to an infection. It is life-threatening, and without timely treatment, sepsis can rapidly lead to tissue damage, organ failure, and . Sepsis happens when an infection you already have-in your skin, lungs, urinary tract or somewhere else-triggers a chain reaction throughout your body. 1 PREVENT INFECTIONS Take good care of chronic conditions. Talk to your doctor about getting the recommended vaccines. 2 PRACTICE GOOD HYGIENE Wash your hands frequently. Keep cuts or open sores clean and covered until they are healed. 3 KNOW THE SYMPTOMS Confusion or disorientation Shortness of breath High heart rate Fever, shivering, or feeling very cold Extreme pain or discomfort Clammy or sweaty skin 4 ACT FAST Get medical care IMMEDIATELY if you suspect sepsis or if you have an infection that is not getting better or is getting worse. To learn more about sepsis and how to prevent infections, visit www.cdc.gov/sepsis. Test Results Laboratory or Other Results This Visit (last charted value for your 01/18/2019 visit) No Laboratory or Other Results This Visit Patient Name:VINCENT ALICIA NEENA I have received this information and was given the opportunity to ask questions. Patient/Central Processing Technician Name: Patient/Central Processing Technician Signature: Relationship to Patient: Clinician/Hospital Central Processing Technician Signature: Date: documented in this encounter Plan of Treatment Not on file documented as of this encounter Visit Diagnoses Not on filedocumented in this encounter
--- OUTSIDE RECORDS SUMMARY | 2025-03-04 13:27 | XMS_ITS | Encounter Summary ---
Author Organization [employer] ([place], [place], [place], [place]) Address [address] [place] [address] Care Team Providers Care Power Sweeper Operator Name Role Phone Unavailable Primary Care Provider Unavailabl e Encounter Details Date Type Department Care Team (Late st Contact Info) Description 01/18/2019 Transcribed Document [facility] [place] [address] [place] [address] ProviderHerlinda MD [address] [place] [phone] Social History Tobacco Use Types Packs/Day Years Used Date Smoking Tobacco: Never Assessed Comments Unknown Sex and Gender Information Value Date Recorded Sex Assigned at Not on file Legal Sex Female 3:43 PM CDT Gender Identity Not on file Sexual Orientation Not on file documented as of this encounter Miscellaneous Notes * Cerner Conversion Note - Historical ProviderMD - 01/18/2019 9:25 AM CDT [address] [address] VINCENT OCTOBER NEENA :1975 Visit [...] MD-GAE When Within As needed Where: [address] [facility] [address] [place] [address]- Medications What How Much When Instructions Next [...] times a day. General instructions ??? Take ifxy-gbq-ujsdhvh and prescription medicines only as told by [...] 07/03/2001 Document Revised: 12/03/2016 Document Reviewed: 03/19/2016 [employer] Interactive Patient Education ?? 2019 [employer]. Colonoscopy, Adult, Care After This sheet gives [...] slower pace than normal. ? Eat soft, gzsq-ln-jllopi foods. ? Rest often. ??? Take shji-arr-pomzuzm or prescription medicines only as told by [...] 02/17/2005 Document Revised: 03/30/2017 Document Reviewed: 09/16/2016 [employer] Interactive Patient Education ?? 2018 [employer]. Emergency Awareness and Preventative Care STROKE is [...] Assistance with quitting is available by contacting 4-668-DSUA-NOW. This is a free resource providing counseling, [...] was given the opportunity to ask questions. Patient/Nuclear Reactor Technician Name: Patient/Nuclear Reactor Technician Signature: Relationship to Patient: Clinician/Hospital Nuclear Reactor Technician Signature: Date: documented in this encounter Plan of Treatment Not on file documented as of this encounter Visit Diagnoses Not on filedocumented in this encounter
--- OUTSIDE RECORDS SUMMARY | 2025-03-04 13:27 | XMS_ITS | Encounter Summary ---
Author Organization [employer] ([place], [place], [place], [place]) Address [address] [place] [address] Care Team Providers Care Mobile Lounge Driver Or Operator Name Role Phone Unavailable Primary Care Provider Unavailabl e Encounter Details Date Type Department Care Team (Late st Contact Info) Description 01/18/2019 Transcribed Document [facility] [place] [address] [place] [address] ProviderHerlinda MD [address] [place] [phone] Social History Tobacco Use Types Packs/Day Years Used Date Smoking Tobacco: Never Assessed Comments Unknown Sex and Gender Information Value Date Recorded Sex Assigned at Not on file Legal Sex Female 3:43 PM CDT Gender Identity Not on file Sexual Orientation Not on file documented as of this encounter Miscellaneous Notes * Cerner Conversion Note - Herlinda ProviderMD - 01/18/2019 8:30 AM CDT [facility] PreOp Summary Primary Physician: TOM ANDRES MD-GAE Finalized Date/Time: 01/18/19 08:05:34 Pt. Name: ALICIA KAUR NEENA /Sex: 1975 Female Med Rec #: [id number] Physician: TOM ANDRES MD-GAE Financial #: [id number] Pt. Type: O [place] [facility] Admit/Disch: 01/18/19 07:21:00 - Institution: [facility] PreOp Case Times Entry 1 In Preop 01/18/19 07:29:00 Ready for Holding n/a Room Patient Ready for 01/18/19 08:05:00 Surgery Patient Out of Preop 01/18/19 08:05:00 Patient Out of n/a Holding Room [facility] PreOp Case Times Audit 01/18/19 08:05:31 Building Specialist: [id number] Modifier: [id number] <+> 1 Patient Out of Preop <+> 1 Patient Ready for Surgery Finalized By: Sis Alcala RN Document Signatures Signed By: Sis Alcala RN 01/18/19 08:05 documented in this encounter Plan of Treatment Not on file documented as of this encounter Visit Diagnoses Not on filedocumented in this encounter
--- OUTSIDE RECORDS SUMMARY | 2025-03-04 13:27 | XMS_ITS | Encounter Summary ---
Author Organization [employer] ([place], [place], [place], [place]) Address [address] [place] [address] Care Team Providers Care Data Processing Systems Project Planner Name Role Phone Unavailable Primary Care Provider Unavailabl e Encounter Details Date Type Department Care Team (Late st Contact Info) Description 01/18/2019 Transcribed Document [facility] [place] [facility] [place] [address] ProviderHerlinda MD [address] [place] [address] [phone] Social History Tobacco Use Types Packs/Day Years Used Date Smoking Tobacco: Never Assessed Comments Unknown Sex and Gender Information Value Date Recorded Sex Assigned at Not on file Legal Sex Female 3:43 PM CDT Gender Identity Not on file Sexual Orientation Not on file documented as of this encounter Miscellaneous Notes * Cerner Conversion Note - Herlinda ProviderMD - 01/18/2019 9:05 AM CDT Patient Education Materials Follows: Hemorrhoids Hemorrhoids are swollen veins in and [...] Take warm sitz baths for 20 minutes, 3?4 times a day to ease pain and discomfort. ??? If directed, apply ice to the affected area. Using ice packs between sitz baths may be helpful. ? Put ice in a plastic bag. ? Place a towel between your skin and the bag. ? Leave the ice on for 20 minutes, 2?3 times a day. General instructions ??? Take trsj-icj-wrsoghe and prescription medicines only as told by [...] 07/03/2001 Document Revised: 12/03/2016 Document Reviewed: 03/19/2016 [employer] Interactive Patient Education ? 2019 [employer]. Radiology Colonoscopy, Adult, Care After This sheet gives [...] slower pace than normal. ? Eat soft, eudb-vg-hupeih foods. ? Rest often. ??? Take ueyt-xlb-qwlizqv or prescription medicines only as told by [...] source. ? Leave the heat on for 20?30 minutes. ? Remove the heat if your [...] ??? You have blood in your stool 2?3 days after the procedure. Get help right [...] 02/17/2005 Document Revised: 03/30/2017 Document Reviewed: 09/16/2016 [employer] Interactive Patient Education ? 2018 [employer] documented in this encounter Plan of Treatment Not on file documented as of this encounter Visit Diagnoses Not on filedocumented in this encounter
--- OUTSIDE RECORDS SUMMARY | 2025-03-04 13:27 | XMS_ITS | Referral Summary ---
Author Organization [employer] ([place], [place], [place], [place]) Address [address] [place] [address] Care Team Providers Care Temperature Inspector Name Role Phone Unavailable Primary Care Provider Unavailabl e Allergies Active Allergy Reactions Criticality Noted Date Comments Naproxen Low 03/12/2021 Other reaction(s): GI Intolerance, Unknown Medications amLODIPine (NORVASC) 5 MG tablet Take 1 tablet (5 mg total) by mouth daily. 2 Active cetirizine (ZyrTEC) 10 MG tablet Take 1 tablet (10 mg total) by mouth. Active diclofenac 1 % Gel 2 Active galcanezumab-gnlm (Emgality Pen) 120 mg/mL pen Inject 1 mL (120 mg total) subcutaneous ly. 2 Active magnesium 250 mg Tab tablet Take by mouth. Active montelukast (SINGULAIR) 10 mg tablet Take 1 tablet (10 mg total) by mouth. 2 Active vitamin E 400 UNIT capsule Take 1 capsule (400 Units total) by mouth. Active rizatriptan (MAXALT-NEUROSURGEON) 10 MG disintegrating tablet Take 1 tablet by mouth at onset of headache. May repeat every 2 hours as needed. Maximum 3 tables in 24 hours. 2 Active cyclobenzaprine (FLEXERIL) 10 MG tablet Take 1 tablet (10 mg total) by mouth 3 (three) times daily. 3 Active gabapentin (NEURONTIN) 600 MG tablet Take 1 tablet (600 mg total) by mouth 3 (three) times daily. 3 Active levothyroxine (SYNTHROID, LEVOTHROID) 50 MCG tablet Take 1 tablet (50 mcg total) by mouth. 2 Active calcium carbonate (CALCIUM 600 ORAL) Take by mouth. Active pantoprazole (PROTONIX) 40 MG tabletIndications:G astroesophageal reflux disease without esophagitis Take 1 tablet (40 mg total) by mouth 2 (two) times daily for 90 days. 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 Goiter 09/11/2020 Steatosis of liver 04/13/2020 Chronic rhinitis 12/21/2019 GERD (gastroesophageal reflux disease) 0 Immunizations Name Administration Dates Next Due Hepatitis A Adult 04/15/2019,07/29/2018 Social History Tobacco Use Types Packs/Day Years Used Date Smoking Tobacco: Never Smokeless Tobacco: Never Tobacco Cessation:Counseling Given: Not Answered Alcohol Use Standard Drinks/Week Comments Never 0 [...] Date Derik rded Speak language other than [place] Citizen at home Not on file 08/07/2023 Want [...] Sign Reading Time Taken Comments Blood Pressure 119/83 04/21/2023 9:42 AM EDT Pulse 92 04/21/2023 9:42 AM EDT Temperature 37.1 C (98.7 F) 04/21/2023 9:42 AM EDT Respiratory Rate - - Oxygen Saturation - - Inhaled Oxygen Concentration - - Weight 73 kg (161 lb) 04/21/2023 9:42 AM EDT Height 167.6 cm (5' 6 ) 04/21/2023 9:42 AM EDT Body Mass Index 25.99 04/21/2023 9:42 AM EDT Plan of Treatment Not on file Insurance [facility]
--- OUTSIDE RECORDS SUMMARY | 2025-03-04 13:27 | XMS_ITS | Clinical Summary ---
Author Organization [facility] Address [address] [place] [address] Care Team Providers Care Supervisor Chemical Name Role Phone Deepika Delvalle APRN Primary Care Provider Allergies Active Allergy Reactions Criticality Noted Date Comments Naproxen GI Intolerance Low 03/12/2021 Medications gabapentin (NEURONTIN) 600 MG tablet Take 1 tablet by mouth 2 (Two) Times a Day. 013 Active pantoprazole (PROTONIX) 40 MG EC tablet 021 Active HYDROcodone-aceta minophen (NORCO) 7.5-325 MG per tablet Take 1 tablet by mouth 3 (Three) Times a Day. 021 Active Magnesium 250 MG tablet Take by mouth. Activ e vitamin E 400 UNIT capsule Take 1 capsule by mouth 2 (Two) Times a Day. Active cyclobenzaprine (FLEXERIL) 10 MG tablet Take 1 tablet by mouth. 021 Active Diclofenac Sodium (VOLTAREN) 1 % gel gel 022 Active amLODIPine (NORVASC) 5 MG tablet Take 1 tablet by mouth Daily. 023 Active montelukast (SINGULAIR) 10 MG tablet Take 1 tablet by mouth every night at bedtime. 023 Active Calcium Carb-Cholecalcife rol 600-25 MG-MCG capsule Take by mouth. Activ e fluticasone (FLONASE) 50 MCG/ACT nasal spray Administer 1 spray into the nostril(s) as directed by provider. 024 Active azelastine (ASTELIN) 0.1 % nasal spray Administer 1 spray into the nostril(s) as directed by provider. Active PARoxetine (PAXIL) 20 MG tablet Take 1 tablet by mouth Every Morning. Active cetirizine (zyrTEC) 10 MG tablet Take 1 tablet by mouth. Active rizatriptan GLUE SPREADER (MAXALT-GLUE SPREADER) 10 MG disintegrating tabletIndications :Periodic headache syndrome, not intractable Take 1 tablet by mouth at onset of headache. May repeat every 2 hours as needed. Maximum 3 tables in 24 hours. 27 tablet 3 Active galcanezumab-gnlm (EMGALITY) 120 MG/ML auto-injector pen Inject 1 mL under the skin into the appropriate area as directed Every 28 (Twenty-Eight) Days. 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 New Dose. 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 Thyromegaly 01/18/2021 Elevated BP without diagnosis of hypertension Chronic rhinitis 12/21/2019 GERD (gastroesophageal reflux disease) 0 Numbness 08/18/2016 Assessment & Plan (09/13/2021 12:11 PM EST): Stefanie Assessment & Plan (03/12/2021 11:10 AM EDT): Stefanie Continues to defer EMG/NCS Assessment & Plan (08/31/2020 9:25 AM EST): Sx stefanie is deferring EMG/NCS due to cost Assessment & Plan (02/28/2020 9:00 AM EDT): Pt defers EMG/NCS due to cost Assessment & Plan (10/26/2018 11:57 AM EDT): Pt wishes to defer EMG/NCS due to out of pocket expense Assessment & Plan (08/18/2016 11:48 AM EST): Order EMG/NCS of the left arm and leg Periodic headache syndrome, not intractable 03/2016 Assessment & Plan (10/10/2024 9:44 AM EDT): PAYTON controlled Emgality 120 mg sq q 4 weeks Maxalt 10 mg q 2 hours prn Assessment & Plan (10/09/2023 9:45 AM EDT): Stable on Emgality, Maxalt Assessment & Plan (09/15/2022 11:03 AM EST): Headaches are unchanged. Continue current treatment regimen. Continue Emgality and Maxalt Assessment & Plan (09/13/2021 12:11 PM EST): Headaches are unchanged. Continue current treatment regimen. [...] in 1 year or sooner if needed Assessment & Plan (03/12/2021 11:09 AM EDT): Headaches are improving with treatment. Continue current treatment regimen. Stable on Emgality and Maxalt Assessment & Plan (08/31/2020 9:25 AM EST): Headaches are worsening. Medication changes per orders. Start Aimovig 140 mg q 4 weeks Continue elavil, maxalt Assessment & Plan (02/28/2020 8:59 AM EDT): Headaches are worsening. Medication changes per orders. Start Elavil Refill maxalt and imitrex Assessment & Plan (10/26/2018 11:56 AM EDT): Headaches are worsening. Medication changes per orders. Restart TPM 200 mg BID Assessment & Plan (08/18/2016 11:47 AM EST): Headaches are improving with treatment. Continue current treatment regimen. Assessment & Plan (05/28/2016 10:20 AM EST): Headaches are unchanged. Continue current treatment regimen. Depression 05/09/2016 Overview (05/09/2016): Assessed By: Rajendra Brito (Neurology); Last Assessed: 29 May 2014 Assessment & Plan (10/10/2024 9:45 AM EDT): Mood is stable on Paxil 10 mg dailyt Assessment & Plan (08/31/2020 9:26 AM EST): Mood is stable off meds Encounters Date Type Department Care Team Description 02/08/2025 Telephone [facility] [address] [place] [address] Gemma Catalan MD Labs Only 02/08/2025 Telephone [facility] [address] [place] [address] Gemma Catalan MD from Last 3 Months Family History Medical History Relation Name Comments Hypertension Brother Arthritis Father Cancer Father Hypertension Father Kidney disease Father Thyroid disease Father Hypertension Mother Diabetes Other FAMILY Relation Name Status Comments Brother Father Mother Alive Other FAMILY Social History Tobacco Use Types Packs/Day Years Used Date Smoking Tobacco: Never Passive Smoke Exposure: Never Smokeless Tobacco: Never Tobacco Cessation:Counseling Given: [...] Sign Reading Time Taken Comments Blood Pressure 111/80 11/22/2024 8:56 AM EDT Pulse 69 11/22/2024 8:56 AM EDT Temperature 36.5 C (97.7 F) 09/15/2022 10:52 AM EST Respiratory Rate 18 10/26/2018 11:32 AM EDT Oxygen Saturation 98% 11/22/2024 8:56 AM EDT Inhaled Oxygen Concentration - - Weight 74.6 kg (164 lb 8 oz) 11/22/2024 8:56 AM EDT Height 167.6 cm (5' 6 ) 11/22/2024 8:56 AM EDT Body Mass Index 26.55 11/22/2024 8:56 AM EDT Plan of Treatment Upcoming Encounters Date Type Department Care Team (Late st Contact Info) Description 10/10/2025 9:30 AM EDT Office Visit [facility] NEUR[facility] [address] [place] [phone] Rajendra Brito MD [address] [place] [address] 11/21/2025 9:30 AM EDT Office Visit [facility] [address] [place] [address] Gemma Catalan MD [address] [place] [address] Health Maintenance Due Date Last Done Comments Annual Gynecologic Pelvic and Breast Exam 1975 TDAP/TD VACCINES (1 - Tdap) 1994 MAMMOGRAM 2015 ANNUAL PHYSICAL 05/27/2017 HEPATITIS C SCREENING 05/27/2017 COLOGUARD 02/21/2020 COLON CANCER SCREENING 5 YEAR SIGMOIDOSCOPY 02/21/2020 CT COLONOGRAPHY 02/21/2020 FECAL OCCULT BLOOD TEST 02/21/2020 FIT Testing (1 year) 02/21/2020 COVID-19 Vaccine (1 - 2023- season) 2024 Pneumococcal Vaccine 50+ (1 of 1 - PCV) 2025 ZOSTER VACCINE (1 of 2) 2025 INFLUENZA VACCINE 04/19/2025 COLONOSCOPY 01/18/2029 01/18/2019 COLORECTAL CANCER SCREENING 01/18/2029 Goals Goal Patient Goal Type Associated Problems [...] Down from daily to about 2 weekly Insurance [facility] Care Teams Supervisor Chemical Relationship Specialty Start Date End Date Deepika Delvalle APRN [address] [place] [id number] PCP - General 04/03/15
--- OUTSIDE RECORDS SUMMARY | 2025-03-04 13:27 | XMS_ITS | Encounter Summary ---
Author Organization [employer] ([place], [place], [place], [place]) Address [address] [place] [address] Care Team Providers Care Quahogger Name Role Phone Unavailable Primary Care Provider Unavailabl e Encounter Details Date Type Department Care Team (Late st Contact Info) Description 01/18/2019 Transcribed Document [facility] [place] [address] ProviderHerlinda MD [address] [place] [id number] Social History Tobacco Use Types Packs/Day Years Used Date Smoking Tobacco: Never Assessed Comments Unknown Sex and Gender Information Value Date Recorded Sex Assigned at Not on file Legal Sex Female 3:43 PM CDT Gender Identity Not on file Sexual Orientation Not on file documented as of this encounter Miscellaneous Notes * Cerner Conversion Note - Herlinda Adkins MD - 01/18/2019 7:56 AM CDT Patient: ALICIA KAUR Age: 43 years Sex: Female : 1975 Associated Diagnoses: None Author: TOM ANDRES MD-DANIEL Basic Information Source of history: Self, Medical record. Referral source: MOISES MANZO (REF), GUALBERTO. History limitation: None. Chief Complaint Polyp history History of Present Illness This patient is here for surveillance for colon polyp hisotry. Last colonoscopy 12/2015 found an ascending colon serrated adenoma. Today she has no complanits of abdominal pain, change in bowel habits, rectal bleeding, or weight loss. No family history of colon cancer, mother with polyps. She denies ASA, NSAID, or blood thinner use. Histories Past Medical History: Active GERD (gastroesophageal reflux disease) ([id number]) Headache, migraine (19295031) Back spasm (362282044) Tarsal tunnel syndrome (36794257) Plantar fasciitis (413493958) Thoracic outlet syndrome (366872967) HTN (hypertension) (8582919315) Depression (53438634) Anxiety (75146824) Resolved Endometriosis (6033048267): Resolved. Procedure history: Hysterectomy. Foot surgery x 2. Exploratory Lap. Cyst removal from the side. Cholecystectomy (40945862). Social History Social & Psychosocial Habits Alcohol 01/10/2016 Alcohol Use Frequency Rarely Nutrition/Health 01/10/2016 Caffeine intake amount: none Substance Abuse 01/10/2016 Recreational Drug Use History No Recreational Drug Use Last 12 Months No Tobacco 01/10/2016 Smoking Status Never smoker . Family History: No Gi pathology Health Status Allergies: Allergies (1) Active Reaction No Known Allergies None Documented Current medications: (Selected) Inpatient Medications Ordered Normal Saline 1,000 mL: 100 mL/Hr, IntraVENous Documented Medications Documented Buproban: 200 mg, Oral, BID, 0 Refill(s) Lortab 10/325: Tab, Oral, TID, 0 Refill(s) Non Formulary med: 10 mg, Daily, Estrodiol, 0 Refill(s) PARoxetine: 40 mg, Oral, Daily, 0 Refill(s) SUMAtriptan: 50 mg, Oral, Daily, PRN: as needed for migraine headache, 0 Refill(s) baclofen: 10 mg, Oral, BID, 0 Refill(s) cyclobenzaprine: 10 mg, Oral, Daily, 0 Refill(s) gabapentin: 600 mg, Oral, TID, 0 Refill(s) lisinopril: 20 mg, Oral, Daily, 0 Refill(s) loratadine: 10 mg, Oral, Daily, 0 Refill(s) pantoprazole: 40 mg, Oral, Daily, 0 Refill(s) rizatriptan: 10 mg, Oral, Daily, PRN: as needed for migraine headache, 0 Refill(s) topiramate: 100 mg, Oral, BID, 0 Refill(s), Medications (1) Active Scheduled: (0) Continuous: (1) NaCl 0.9% 1,000 mL 1,000 mL, IntraVENous, 100 mL/Hr PRN: (0) Problem list: All Problems Thoracic outlet syndrome / SNOMED CT 769311841 / Confirmed Tarsal tunnel syndrome / SNOMED CT 40837292 / Confirmed Back spasm / SNOMED CT 305307897 / Confirmed Muscle spasm of both lower legs / SNOMED CT 85222872 / Confirmed Plantar fasciitis / SNOMED CT 270009579 / Confirmed Headache, migraine / SNOMED CT 57294586 / Confirmed HTN (hypertension) / SNOMED CT 4137741494 / Confirmed GERD (gastroesophageal reflux disease) / SNOMED CT [id number] / Confirmed Depression / SNOMED CT 06871203 / Confirmed CHronic Back Pain / SNOMED CT 734994591 / Confirmed Anxiety / SNOMED CT 91944167 / Confirmed Resolved: Endometriosis / SNOMED CT 7149202539 Canceled: Diarrhea / SNOMED CT 542336443 Review of Systems Constitutional: No fever, No chills, No weight gain, No weight loss. Eye: No recent visual problem, No blurring. Ear/Nose/Mouth/Throat: No dysphagia, No epistaxis, No hoarse voice, No sore throat. Respiratory: No shortness of breath, No cough, No hemoptysis. Cardiovascular: No chest pain, No palpitations, No claudication. Gastrointestinal: Negative except as documented in history of present illness. Genitourinary: No dysuria, No hematuria. Hematology/Lymphatics: No bruising tendency, No bleeding tendency. Endocrine: No excessive thirst, No cold intolerance, No heat intolerance. Musculoskeletal: Joint pain, Gait disturbance, No muscle pain, No joint redness. Integumentary: No rash, No pruritus. Neurologic: No confusion, No dizziness, No headache, No seizure. Psychiatric: No anxiety, No depression. the rest of the 10 system review is negative Physical Examination VS/Measurements Vital Measurements 01/18/2019 7:47 EDT Systolic Blood Pressure 134 mmHg Diastolic Blood Pressure 74 mmHg Temperature Source Oral Temperature Mode Fahrenheit Temperature, Fahrenheit 97.9 Deg F Heart Rate Monitored 85 bpm Respiratory Rate 14 Breaths/Min Oxygen Saturation 99 % Oxygen Therapy Mode Room air , Measurements from flowsheet : Height and Weight 01/18/2019 7:30 EDT Height Source Stated Height Entry Format [place] Height/Length, BRITISH (ft) 5 ft Height/Length BRITISH 7 Inch CLINICALHEIGHT 170.18 cm [place] Body Weight 61 kg Weight Source Standing scale Weight Entry Format [place] Weight [place] lb 153 lb CLINICALWEIGHT 69.55 kg Body Surface Area (BSA) 1.81 m2 Body Mass Index 24 kg/m2 General: No acute distress. Appearance: Well nourished. Eye: Pupils are equal, round and reactive to light, Extraocular movements are intact, Normal conjunctiva. Sclera: Both eyes, Within normal limits. HENT: Normocephalic, Normal hearing, Oral mucosa is moist. Nose: Both nostrils, Within normal limits, Patent. Mouth: pink. Neck: Supple, Non-tender, No carotid bruit, No jugular venous distention. Respiratory: Lungs are clear to auscultation, Respirations are non-labored, Breath sounds are equal. Pattern: Regular. Cardiovascular: Normal rate, Regular rhythm, No murmur, No gallop, No edema. Arterial pulses: Bilateral, Dorsalis pedis, Within normal limits. Gastrointestinal: Soft, Non-tender, Non-distended, Normal bowel sounds, No organomegaly. Abdomen: Liver ( Within normal limits ). Lymphatics: Lymphatic exam: Bilateral, Cervical chain, Inguinal, Within normal limits. Musculoskeletal: Normal range of motion, No tenderness, No deformity. Integumentary: Warm, Dry, [place], No rash. Integumentary exam: Face, Chest, Arm, Abdomen, Leg. Neurologic: Alert, Oriented, No focal deficits. Orientation: To person, To place, To time. Psychiatric: Cooperative, Appropriate mood & affect, Normal judgment. Review / Management Results review: No qualifying data available. Impression and Plan Proceed with colonoscopy for further evaluation of polyp history. Risks of procedures including that of bleeding, splenic rupture, missed lesion, and perforation have been discussed with the patient who verbalizes understanding and agrees to proceed. Further recommendations will be based on the above findings. Madisyn Gardner PA-C, have scribed this note for Dr Tom Salinas [employer] K.S. Bravo-Rita, M.D. have personally interviewed the patient, reviewed the chart, performed the physical exam, and formulated the treatment plan. The patient presents for colonoscopy for personal h/o colon poyps. No family h/o colon cancer. Electronically signed by Asim Acosta Conversion Lead Electrical Controls Engineer Cerner at 11/07/2022 1:47 PM CDT documented in this encounter Plan of Treatment Not on file documented as of this encounter Visit Diagnoses Not on filedocumented in this encounter
--- OUTSIDE RECORDS SUMMARY | 2025-03-04 13:27 | XMS_ITS | Clinical Summary ---
Author Organization [employer] ([place], [place], [place], [place]) Address [address] [place] [address] Care Team Providers Care Hospitalist Program Director Name Role Phone Unavailable Primary Care [...] (400 Units total) by mouth. Active rizatriptan (MAXALT-MARKETING FINANCE MANAGER) 10 MG disintegrating tablet Take 1 tablet [...] Dates Next Due Hepatitis A Adult 04/15/2019,07/29/2018 Family History Medical History Relation Name Comments Diabetes Other Heart disease Other Thyroid disease Other Relation Name Status Comments Other Social History Tobacco Use Types Packs/Day [...] Date Derik rded Speak language other than [place] at home Not on file 08/07/2023 Want [...] 04/21/2023 9:42 AM EDT Plan of Treatment Health Maintenance Due Date Last Done Comments CT Colonography 1975 FOBT/FIT 1975 Fit-DNA (Cologuard) 1975 Sigmoidoscopy 1975 Depression Screening (12+) 1987 HIV Screening 1990 Hepatitis C Screening 1993 DTAP/TDAP/TD VACCINES (1 - Tdap) 1994 Pneumococcal 50+ years (1 of 2 - PCV) 1994 Breast Cancer Screening 2015 Lipid Panel 02/21/2020 Colonoscopy 01/19/2024 01/18/2019 Colorectal Cancer Screening 01/19/2024 COVID-19 VACCINE ( - season) 2024 Tobacco Cessation Counseling and Screening (12+) 04/2104/21/2023 Shingles Vaccine (Zoster) (1 of 2) 2025 Influenza Vaccine (#1) 2025 Insurance [facility] [employer]
--- OUTSIDE RECORDS SUMMARY | 2025-03-04 13:27 | XMS_ITS | Clinical Summary ---
Author Organization [facility] Address [facility] [place] [address] Care Team Providers Care Metal Spraying Machine Operator Name Role Phone Unavailable Primary Care Provider Unavailabl e Source Comments This information has been disclosed to you from confidential records protectedfrom disclosure by state law. You shall make no further disclosure of thisinformation without the specific, written, and informed release of theindividual to whom it pertains, or as otherwise permitted by law. A generalauthorization for the release of medical or other information is not sufficientfor the purposes of therelease of HIV test results or diagnoses. [id number] Active Problems Problem Noted Date Diagnosed Date Pain in thoracic spine 03/04/2010 Social History Tobacco Use Types Packs/Day Years Used Date Smoking Tobacco: Never Assessed Comments Unknown Sex and Gender Information Value Date Recorded Sex Assigned at Not on file Legal Sex Female 11:20 PM EST Gender Identity Not on file Sexual Orientation Not on file Plan of Treatment Not on file
--- OUTSIDE RECORDS SUMMARY | 2025-03-04 13:27 | XMS_ITS | Encounter Summary ---
Author Organization [facility] Address [address] [place] [address] Care Team Providers Care Paralegal Instructor Name Role Phone Deepika Delvalle PEDRITO Primary Care Provider Reason for Visit * Reason Onset Date Comments Med Refill 05/22/2023 Encounter Details Date Type Department Care Team (Late st Contact Info) Description 05/22/2023 Refill [facility] [address] [address] [place] [address] Rajendra Brito MD [address] [facility] [address] [place] [address] Social History Tobacco Use Types Packs/Day Years [...] encounter Miscellaneous Notes * Telephone Encounter - Marybeth Roach RegSched Rep - 05/22/2023 10:37 AM EDT Caller: October Relationship: Self Best call back number: [phone] Requested Prescriptions: Requested Prescriptions Pending Prescriptions Disp Refills galcanezumab-gnlm (EMGALITY) 120 MG/ML auto-injector pen 1 mL 11 Sig: Inject 1 mL under the skin into the appropriate area as directed Every 28 (Twenty-Eight) Days. Pharmacy where request should be sent: [facility] Last office visit with prescribing clinician: 09/15/2022 Last telemedicine visit with prescribing clinician: Visit date not found Next office visit with prescribing clinician: 09/15/2023 Additional details provided by patient: PATIENT NEVER RECEIVED HER EMGALITY SHOT THAT WAS ORDERED ON 05.01.23. SHE IS DUE FOR HER NEXT DOSAGE Does the patient have less than a 3 day supply: [x] Yes [] No Would you like a call back once the refill request has been completed: [x] Yes [] No If the office needs to give you a call back, can they leave a voicemail: [x] Yes [] No Patrica Marvin Rep 05/22/23 10:37 EDT documented in this encounter Plan of Treatment Upcoming Encounters Date Type Department Care Team (Late st Contact Info) Description 10/10/2025 9:30 AM EDT Office Visit [facility] NEUROLOG[facility] [address] [place] [phone] Rajendra Brito MD [address] [place] [address] 11/21/2025 9:30 AM EDT Office Visit [facility] [address] [facility] [address] [place] [phone] Gemma Catalan MD [address] [facility] [address] [place] [address] documented as of this encounter Goals Goal [...] on filedocumented in this encounter Care Teams Paralegal Instructor Relationship Specialty Start Date End Date Deepika Delvalle APRN [address] [place] [address] PCP - General 04/03/15 documented as of this encounter
--- OUTSIDE RECORDS SUMMARY | 2025-03-04 13:27 | XMS_ITS | Encounter Summary ---
Author Organization [email or web address] ([place], [place], [place], [place]) Address [address] [place] [address] Care Team Providers Care Vessel Traffic Officer Name Role Phone Unavailable Primary Care Provider Unavailabl e Encounter Details Date Type Department Care Team (Late st Contact Info) Description 01/18/2019 Transcribed Document [facility] [place] [facility] [address] [place] [address] ProviderHerlinda MD [address] [place] [id number] Social History Tobacco Use Types Packs/Day Years Used Date Smoking Tobacco: Never Assessed Comments Unknown Sex and Gender Information Value Date Recorded Sex Assigned at Not on file Legal Sex Female 3:43 PM CDT Gender Identity Not on file Sexual Orientation Not on file documented as of this encounter Miscellaneous Notes * Cerner Conversion Note - Herlinda ProviderMD - 01/18/2019 8:46 AM CDT [facility] Summary Primary Physician: TOM ANDRES MD-GAE Finalized Date/Time: 01/18/19 09:35:24 Pt. Name: ALICIA KAUR NEENA /Sex: 1975 Female Med Rec #: [id number] Physician: TOM ANDRES MD-GAE Financial #: [id number] Pt. Type: O Room/Bed: [facility] [place]/ Admit/Disch: 01/18/19 07:21:00 - Institution: [facility] PACU Case Times Entry 1 In PACU I 01/18/19 09:01:00 Ready for PACU 01/18/19 09:35:00 Discharge Discharge from PACU 01/18/19 09:35:00 [facility] Case Times Audit 01/18/19 09:35:23 Dry End Tester: ROMETASHAAMISH Modifier: ROMEKNEA <+> 1 Ready for PACU Discharge <+> 1 Discharge from PACU I Finalized By: Suzan Alvarez RN Document Signatures Signed By: Suzan Alvarez RN 01/18/19 09:35 documented in this encounter Plan of Treatment Not on file documented as of this encounter Visit Diagnoses Not on filedocumented in this encounter
--- OUTSIDE RECORDS SUMMARY | 2025-03-04 13:27 | XMS_ITS | Encounter Summary ---
Author Organization [employer] ([place], [place], [place], [place]) Address [address] [place] [address] Care Team Providers Care Manager Of Customer Billing Name Role Phone Unavailable Primary Care Provider Unavailabl e Encounter Details Date Type Department Care Team (Late st Contact Info) Description 01/18/2019 Transcribed Document [facility] [place] [address] [place] [address] ProviderHerlinda MD [address] [place] [id number] Social History Tobacco Use Types Packs/Day Years [...] - 01/18/2019 8:46 AM CDT [facility] IntraOp Summary Primary Physician: TOM ANDRES MD-GAE Finalized Date/Time: 01/18/19 08:58:00 Pt. Name: CAMILLE ALICIA NEENA /Sex: 1975 Female Med Rec #: [id number] Physician: TOM ANDRES MD-GAE Financial #: [id number] Pt. Type: O Room/Bed: [facility] [place] Admit/Disch: 01/18/19 07:21:00 - Institution: [facility] - Case Attendance Entry 1 Entry 2 Entry 3 Case Attendee CRUMPCRICKET HARVEY CARLY, NICOLETTE VILLANUEVA MD-GAE Role Performed Surgeon/Proceduralist, PROCESS SAFETY ENGINEERING TECHNOLOGIST/Nurse Accounts Payable Specialist Scrub, First First Time In 01/18/19 08:22:00 01/18/19 08:22:00 01/18/19 08:22:00 Time Out 01/18/19 08:58:00 01/18/19 08:58:00 01/18/19 08:58:00 Procedure Colonoscopy Colonoscopy Colonoscopy Other Attendee Superficial Wound Closed By: Last Modified By: JERSEY HOLLAND, RN JERSEY HOLLAND, JERSEY GARRETT, RN 01/18/19 08:57:38 01/18/19 08:57:38 01/18/19 08:57:38 Entry 4 Case Attendee JERSEY HOLLAND RN Role Performed Food General Manager, First Time In 01/18/19 08:22:00 Time Out 01/18/19 08:58:00 Procedure Colonoscopy Other Attendee Superficial Wound Closed By: Last Modified By: JERSEY HOLLAND, RL 01/18/19 08:57:38 [facility] - Case Attendance Audit 01/18/19 08:57:38 Forestry Support Specialist: KULCKA Modifier: KULCKA 1 <+> Time In 1 <+> Time Out 1 <*> Procedure Colonoscopy 2 <+> Time In 2 <+> Time Out 2 <*> Procedure Colonoscopy 3 <+> Time In 3 <+> Time Out 3 <*> Procedure Colonoscopy 4 <+> Time In 4 <+> Time Out 4 <*> Procedure Colonoscopy 01/18/19 07:47:32 Forestry Support Specialist: KULCKA Modifier: KULCKA <+> 1 Procedure 2 <*> Procedure Colonoscopy 3 <*> Procedure Colonoscopy 4 <*> Procedure Colonoscopy [facility] - Case Times Entry 1 Patient In Room Time 01/18/19 08:22:00 Out Room Time 01/18/19 08:58:00 Anesthesia Start Time 01/18/19 08:22:00 Stop Time 01/18/19 08:56:00 Anesthesia Ready 01/18/19 08:29:00 Surgery / Procedure Times Start Time 01/18/19 08:46:00 Stop Time 01/18/19 08:56:00 Last Modified By: JERSEY HOLLAND RN 01/18/19 08:30:03 [facility] - Case Times Audit 01/18/19 08:57:35 Forestry Support Specialist: KULCKA Modifier: KULCKA <+> 1 Out Room Time 01/18/19 08:56:29 Forestry Support Specialist: KULCKA Modifier: KULCKA <+> 1 Stop Time <+> 1 Stop Time 01/18/19 08:49:13 Forestry Support Specialist: KULCKA Modifier: KULCKA <+> 1 Start Time 01/18/19 08:30:03 Forestry Support Specialist: KULCKA Modifier: KULCKA <+> 1 Anesthesia Ready [facility] - Delays Entry 1 Delay Reason Other Duration 0 Minute(s) Comment NO DELAY Last Modified By: JERSEY HOLLAND RN 01/18/19 07:45:03 [facility] - Departure from OR Entry 1 Integumentary Assessment Integumentary WDL Assessment WDL Transfer/Handoff Transfer to PACU Phase I Post-op Transport Stretcher/Gurney Via Patient Transport JERSEY HOLLAND, Accompanied by RN, SAEID HARLEY CRNA Last Modified By: JERSEY HOLLAND RN 01/18/19 07:45:23 [facility] - Endoscopy Details Entry 1 Abdomen Procedure Soft, Non-Tender Assessment Procedure Abdomen 01/18/19 08:24:00 Assessment D/T Radio Frequency Ablation Last Modified By: JERSEY HOLLAND RN 01/18/19 08:24:43 [facility] - Fire Risk Assessment Entry 1 Fire Info Surgical Site or 0- No Incision Above the Xyphoid Open O2 Source 1- Yes (Mask or Cannula) Available Ignition 1- Yes (ESU, Laser, Light Source) Fire Risk 2 Assessment Score Fire Score Fire Risk Yes Assessment Complete Fire Risk JERSEY HOLLAND RN Assessment Verified By Fire Risk 01/18/19 07:45:00 Assessment Verified Date/Time Fire Risk High Risk Protocol Yes Implemented Standard Fire Yes Safety Precautions Followed Last Modified By: JERSEY HOLLAND RN 01/18/19 07:45:34 [facility] - General Case Research Animal Facility Supervisor 1 Case Information OR Endo 02 [facility] Case Level 1 Room Verified Yes Wound Class III - Contaminated Specialty SN Gastroenterology Anesthesia Type MAC ASA Class 2 Diagnosis Preop Diagnosis Z86.010 Postop Same As Preop No Postop Diagnosis hemorrhoids Last Modified By: JERSEY HOLLAND RN 01/18/19 08:24:57 [facility] - General Case Data Audit 01/18/19 08:56:57 Forestry Support Specialist: PAWAN Modifier: KULCKA <+> 1 Postop Diagnosis 01/18/19 08:24:57 Forestry Support Specialist: PAWAN Modifier: KULCKA <+> 1 ASA Class [facility] - Intraoperative Assessment Entry 1 Valid History / Yes Physical in Chart Preoperative Yes Checklist Reviewed/Evaluated Allergies Reviewed Yes Patient is Latex No Sensitive Level of WDL Consciousness (WDL = Alert, Oriented to Person, Place, and Time) Present Upon IVs, ECG monitored Arrival to OR Last Modified By: JERSEY HOLLAND RN 01/18/19 07:46:03 [facility] - Intraoperative Equipment Entry 1 Equipment Intraop Monitoring Blood Pressure Arm, left upper Location Pulse Oximeter Hand, right Probe Site Antiembolic Devices Scopes Flexible Endoscopes Colonoscope, Peds Used Scope Serial [id number] Number/Identificatio n Number Photo/Video Documentation Photo Yes Video No Last Modified By: JERSEY HOLLAND RN 01/18/19 07:46:59 [facility] - Intraoperative Equipment Audit 01/18/19 07:46:59 Forestry Support Specialist: PAWAN Modifier: KULCKA <+> 1 Photo <+> 1 Video <+> 1 Blood Pressure Location <+> 1 Pulse Oximeter Probe Site <+> 1 Flexible Endoscopes Used <+> 1 Scope Serial Number/Identification Number [facility] - Patient Positioning Entry 1 Procedure Colonoscopy Body Position Lateral, right side up Left Arm Position Resting at side Right Arm Position Resting at side Left Leg Position Other Right Leg Position Other Position Comments Right leg over Left leg uncrossed Feet Uncrossed Yes Pressure Points Yes Checked Positioned By NICOLETTE SALDANA Position Verified Positioning Yes Verified by Surgeon Last Modified By: JERSEY HOLLAND RN 01/18/19 07:47:14 [facility] - Sign In Entry 1 Patient, Site, Yes Procedure Identified Surgical Consent Yes Confirmed Surgical Site N/A Marked by person performing procedure Airway Hypothermia Risk No Warming Measures No Taken Last Modified By: JERSEY HOLLAND RN 01/18/19 07:45:16 [facility] - Sign Out Entry 1 RN Confirmation Surgical Yes Procedure(s) Identified Instrument, Sponge N/A and Sharps Counts Correct/Documented Equipment Problems N/A Documented Specimen Labeled N/A Correctly Urinary Catheter N/A Documented in IView Safety Checklist Yes Elements Complete? RN Sign Out JERSEY HOLLAND, RN Signature RN Sign Out 01/18/19 08:57:00 Signature Date/Time Plan of Care Outcome - Fire Risk OUTCOME STATEMENT: Goal met Patient is free from injury related to surgical fire Plan of Care Outcome - Pt Positioning OUTCOME STATEMENT: Goal met Absence of signs and symptoms of positioning injury. Plan of Care Outcome - Skin Prep OUTCOME STATEMENT: Goal met Intraoperative care is consistent with measures to prevent infection Plan of Care Outcome - Xray/Images OUTCOME STATEMENT: N/A Absence of observable signs or symptoms of radiation injury Plan of Care Outcome - Counts OUTCOME STATEMENT: N/A Absence of signs and symptoms of injury related to extraneous objects Last Modified By: JERSEY HOLLAND RN 01/18/19 08:57:26 [facility] - Surgical Procedures Entry 1 Procedure Colonoscopy Primary Procedure Yes Primary Surgeon TOM ANDRES MD-GAE Start 01/18/19 08:46:00 Stop 01/18/19 08:56:00 Physician States 01/18/19 08:49:00 Cecum Reached Anesthesia Type MAC Specialty SN Gastroenterology Wound Class III - Contaminated Last Modified By: JERSEY HOLLAND RN 01/18/19 08:49:49 [facility] - Surgical Procedures Audit 01/18/19 08:57:08 Forestry Support Specialist: SUBHALCYADIEL Modifier: KULCKA <+> 1 Stop 01/18/19 08:49:49 Forestry Support Specialist: SUBHALCKA Modifier: KULCKA 1 <*> Procedure Colonoscopy 1 <+> Start 1 <+> Physician States Cecum Reached [facility] - Time Out Entry 1 Procedure to be Colonoscopy Performed Time Out Time Out Pause Time 01/18/19 08:44:00 All activity Yes suspended (unless life threatening emergency) Team Verbally Correct patient Confirms Information identity, Correct side and site are marked, Consent form is present and accurate, Agreement on the procedure to be done, Correct patient position Antibiotic N/A Prophylaxis Administered Or In Progress Within the Last 60 Minutes Beta Elias N/A Administered Venous N/A Thromboembolism Prophylaxis Required Anticipated Critical Events Surgeon None expected Last Modified By: JERSEY HOLLAND RN 01/18/19 08:44:23 Case Comments <None> Finalized By: JERSEY HOLLAND RN Document Signatures Signed By: JERSEY HOLLAND RN 01/18/19 08:58 Electronically signed by Dave [facility] Conversion Supervisor Drying Cerner at 11/07/2022 1:36 PM CDT documented in this encounter Plan of Treatment Not on file documented as of this encounter Visit Diagnoses Not on filedocumented in this encounter
--- NOTE | 2025-03-04 13:44 | CT_ITS ---
PROCEDURE INFORMATION: Exam: CT Abdomen And Pelvis With Contrast Exam date and time: 03/04/2025 2:09 PM Age: 50 years old Clinical indication: Abdominal pain; Additional info: Abdominal pain, diarrhea TECHNIQUE: Imaging protocol: Computed tomography of the abdomen and pelvis with contrast. Radiation optimization: All CT scans at this facility use at least one of these dose optimization techniques: automated exposure control; mA and/or kV adjustment per patient size (includes targeted exams where dose is matched to clinical indication); or iterative reconstruction. Contrast material: ISOVUE; Contrast volume: 75 ml; Contrast route: IV; COMPARISON: CR XR LUMBAR SPINE MIN 4V 11/19/2023 12:02 PM FINDINGS: Lungs: Calcified right lung base granuloma. Liver: Mild fatty liver. Gallbladder and biliary ducts: Cholecystectomy. Pancreas: Normal. No ductal dilation. Spleen: Normal. No splenomegaly. Adrenal glands: Normal. No mass. Kidneys and ureters: Punctate nonobstructing stones in the kidneys. Stomach and bowel: Diffuse colon wall thickening with adjacent stranding. Fluid throughout the colon lumen. No bowel dilation. Areas of small bowel wall thickening. Appendix: No evidence of appendicitis. Intraperitoneal space: Unremarkable. No free air. No significant fluid collection. Vasculature: Atherosclerosis. Lymph nodes: Unremarkable. No enlarged lymph nodes. Urinary bladder: Unremarkable as visualized. Reproductive: Hysterectomy. Bones/joints: Unremarkable. No acute fracture. Soft tissues: Unremarkable. Other findings: Calcified right hilar granulomata. IMPRESSION: 1. Diffuse colitis. 2. Areas of small bowel wall thickening may be secondary to incomplete distention and/or enteritis. 3. Punctate nonobstructing stones in the kidneys. 4. Mild fatty liver. 5. Atherosclerosis. 6. Additional chronic/nonemergent findings as detailed above.
[2025-03-04 13:50] LABS: Hematocrit 48.5 % (37.0-47.0); Hemoglobin 16.8 g/dL (12.2-16.2); Immature Granulocytes % 0.5 %; Mean Corpuscular HGB Conc 34.6 g/dL (31.8-35.4); Mean Corpuscular Hemoglobin 29.4 pg (27.0-31.2); Mean Corpuscular Volume 84.8 fl (81-99); Nucleated Red Blood Cells % 0 %; Platelet Count 322 K/mm3 (142-424); Red Blood Count 5.72 M/mm3 (4.20-5.40); Red Cell Distribution Width-SD 38.9 fL; White Blood Count 28.1 K/mm3 (4.8-10.8)
[2025-03-04 13:52] LABS: Albumin Level 4.5 g/dl (3.5-5.0); Chloride 100 mmol/L (98-107); Sodium 136 mmol/L (136-145)
[2025-03-04 13:53] LABS: Potassium 4.0 mmoL/L (3.5-5.1)
[2025-03-04 13:55] LABS: Alanine Aminotransferase 34 U/L (12-78); Albumin/Globulin Ratio 1.6 (1.1-1.8); Alkaline Phosphatase 109 U/L (38-126); Anion Gap 16.0 mEq/L (5-15); Aspartate Amino Transferase 35 U/L (14-36); Bilirubin,Total 1.1 mg/dl (0.2-1.3); Blood Urea Nitrogen 14 mg/dl (7-17); Carbon Dioxide 24 mmol/L (22.0-30.0); Creatinine Clearance Estimated 103 mL/min (50-200); Creatinine,Serum 0.70 mg/dl (0.52-1.04); Estimated Glomerular Filt Rate 89 ml/min (>60); GFR (African American) 107 ML/MIN (>60); Globulin 2.9 g/dL (1.3-3.2); HCG Qualitative, Serum Negative (Negative); Lipase 20 U/L (23-300); Total Protein,Serum 7.4 g/dl (6.3-8.2)
[2025-03-04 13:56] LABS: Calcium 9.3 mg/dl (8.4-10.2); Glucose 164 mg/dl (74-100)
[2025-03-04] MEDS: ONDANSETRON 4MG/2ML VIAL 4 MG IV (13:57)
[2025-03-04] MEDS: MORPHINE 4MG/ML SYRINGE 4 MG IV ×2 (13:57→19:34)
[2025-03-04 13:59] LABS: Adenovirus F 40/41, stool Not Detected (NotDetected); Color,Urine YELLOW (Yellow); Cyclospora Cayetanesis Not Detected (NotDetected); Glucose,Urine (UA) Negative (Negative); Ketones,Urine 3+ (Negative); Leukocyte Esterase,Urine Negative (Negative); Microscopic, Urine URINE MICROSCOPIC (MICROSCOPIC); PH,Urine 6.0 (5.0-8.5); Plesimonas Shigalloides, PCR Not Detected (NotDetected); Protein,Urine 1+ (Negative); Salmonella, PCR Not Detected (NotDetected); Shiga-like toxin E coli Not Detected (NotDetected); Shigella Enterovasive E coli Not Detected (NotDetected); Specific Gravity, Urine >= 1.030 (1.005-1.030); Urobilinogen,Urine 0.2 EU/dl (0.2); Vibrio, PCR Not Detected (NotDetected); Yersinia Entercolitica, PCR Not Detected (NotDetected)
[2025-03-04 14:07] LABS: Bacteria,Urine 2+ /lpf; Bilirubin,Urine 2+ (Negative)
[2025-03-04] MEDS: IOPAMIDOL-370 (76%);100ML BOTTLE 75 ML IV (14:09)
[2025-03-04] MEDS: SODIUM CHLORIDE 0.9% 10ML SYR (RAD ONLY) 10 ML IV (14:10)
[2025-03-04] MEDS: LACTATED RINGERS 1000ML 1,000 ML 999 ML IV ×2 (14:25→15:46)
[2025-03-04 14:46] LABS: Hepatitis C Ab Qual. W/ RFX NEGATIVE (Negative)
[2025-03-04 15:01] LABS: Total Cells Counted 100
[2025-03-04 15:02] LABS: RBC Morphology Normal
--- NOTE | 2025-03-04 15:12 | ED_ITS ---
Discharge Plan Disposition Patient Disposition: Admitted Prescriptions Prescriptions: No Action gabapentin 600 mg tablet 600 mg PO BID hydrocodone-acetaminophen 7.5-325 mg tablet 1 tab PO Q8H PRN celecoxib [Celebrex] 100 mg capsule 100 mg PO BID vitamin E (dl, acetate) 180 mg (400 unit) capsule 180 mg PO BID levothyroxine 75 mcg capsule 75 mcg PO DAILY amlodipine 5 mg tablet 5 mg PO DAILY loperamide [Anti-Diarrheal (loperamide)] 2 mg capsule 2 mg PO QID PRN (Reason: loose stool) Qty: 20 0RF Referrals Follow up/Referrals: Deepika Delvalle [Primary Care Provider, Medical] - See instructions Clinical Impressions Clinical Impression: Sepsis, Diarrhea Instructions Patient Instructions: DI for Diarrhea and Traveler's Diarrhea -- Adult, DI for Diarrhea and Traveler's Diarrhea -- Child, DI for Nausea -- Adult, DI for Nausea -- Child Print Language Print Language: Estonian Discharge ED Provider: Cb Nayak General Adult HPI <Jose Yang DO - Last Filed: 03/04/25 15:51> General Chief complaint: Nausea/Vomiting/Diarrhea Stated complaint: diarrhea, nausea x9, stomach, back pain Time Seen by Provider: 03/04/25 13:10 Mode of Arrival: Ambulatory Source of Information: Patient Description of Symptoms (Recalled from ER Triage Doc. by RN): patient states she has had nausea and diarrhea for 9 days with abdominal pain and back pain. she reports she has lost 12 pounds since february 21 History of Present Illness HPI narrative: This is a 50-year-old female patient, with no significant past medical history, who is presenting to the emergency department today for evaluation of diarrhea. She tells me that last month she was treated separately on 2 different occasions for an abscessed tooth with antibiotics, namely clindamycin. Over the course of last 9 days she has begun developing severe profuse diarrhea. She describes her diarrhea as watery in nature with very little formed components. She has not been having hematochezia or melena. She has had nausea but has not had overt vomiting and denies hematemesis. She is having significant abdominal pain and cramping. She is not experiencing chest pain or shortness of breath. Related Data Home Medications ?Medication ?Instructions ?Recorded ?Confirmed amlodipine 5 mg tablet 5 mg PO DAILY 02/28/2502/28 celecoxib 100 mg capsule (Celebrex) 100 mg PO BID 02/1702/28/25 gabapentin 600 mg tablet 600 mg PO BID 02/28/2502/28 hydrocodone 7.5 mg-acetaminophen 1 tab PO Q8H PRN 02/1702/28/25 325 mg tablet levothyroxine 75 mcg capsule 75 mcg PO DAILY 02/28/25 02/28/25 vitamin E (dl, acetate) 180 mg 180 mg PO BID 02/28/25 02/28/25 (400 unit) capsule Previous Rx's ?Medication ?Instructions ?Recorded loperamide 2 mg capsule 2 mg PO QID PRN loose stool #20 02/28/25 (Anti-Diarrheal (loperamide)) caps Allergies Allergy/AdvReac Type Severity Reaction Status Date / Time naproxen Allergy Verified 02/28/25 11:38 [facility] <Jose Yang DO - Last Filed: 03/04/25 15:51> [facility] Disclaimer: The information contained in this section may have been updated after the patient was seen, as this information can be updated by other users. Medical History Hyperthyroidism Hypertension Surgical History No pertinent past surgical history Family History Family/Other No significant family history Social History Smoking Status: Never smoker alcohol intake: never current occupational status: employed Travel in the last 8 weeks?: None Have you lived/traveled outside [place] in past 30 days?: No Contact w/someone who lives/traveled outside US past 30 days?: No Exposure to someone with infectious disease in past 14 days?: No Do you have a fever (greater than 100.4 F or 38 C)?: No Have you tested positive for COVID-19?: No Exposed to someone with COVID-19 in past 14 days?: No Do you have a sore throat?: No Do you have a cough?: No Do you have any weakness?: Yes Do you have any diarrhea?: Yes Are you experiencing any unusual bleeding?: No Do you have any muscle aches/pain?: No Do you have any abdominal pain?: No Are you experiencing loss of taste or smell?: No <Jose Yang DO - Last Filed: 03/04/25 15:51> ROS Obtained: Yes Systems reviewed as appropriate & no additional complaints except as documented Physical Exam <Jose Yang DO - Last Filed: 03/04/25 15:51> General General appearance: other (See MDM) Respiratory Respiratory exam: Present other (See MDM) Cardiovascular Cardiovascular exam: Present other (See MDM) Neurological Exam Neurological exam: Present other (See MDM) Medical Decision Making <Jose Yang DO - Last Filed: 03/04/25 15:51> Medical Records Medical records reviewed: Yes I reviewed the patient's medical records. Screening: Per USPSTF and CDC recommendations, given the prevalence of disease in our region, it is our hospital?s policy to screen for HIV and viral Hepatitis for all patients aged 18 and over and those with ongoing risk factors. Rajat Inquiry Pt receiving controlled substance: No Rajat was queried for this patient: No Vital Signs: 03/04/25 13:22 03/04/25 13:30 03/04/25 14:00 Temperature 98.1 F Temperature Source Oral Pulse Rate 102 H 104 H Pulse Rate [Right Radial] 115 H Respiratory Rate 18 15 13 Blood Pressure 175/118 H 161/110 H Blood Pressure [Right Arm] 172/106 H Blood Pressure Mean [Right Arm] 128 Blood Pressure Source [Right Arm] Automatic Cuff Blood Pressure Position [Right Arm] Supine 02 Sat by Pulse Oximetry 100 100 100 Oxygen Delivery Method Room Air 03/04/25 14:17 03/04/25 14:18 03/04/25 14:30 Temperature Temperature Source Pulse Rate 102 H 104 H 93 H Pulse Rate [Right Radial] Respiratory Rate 15 17 14 Blood Pressure 184/109 H 183/106 H 167/102 H Blood Pressure [Right Arm] Blood Pressure Mean [Right Arm] Blood Pressure Source [Right Arm] Blood Pressure Position [Right Arm] 02 Sat by Pulse Oximetry 100 98 99 Oxygen Delivery Method 03/04/25 15:00 03/04/25 15:30 03/04/25 16:00 Temperature Temperature Source Pulse Rate 96 H 105 H 109 H Pulse Rate [Right Radial] Respiratory Rate 15 16 14 Blood Pressure 167/101 H 184/112 H 156/103 H Blood Pressure [Right Arm] Blood Pressure Mean [Right Arm] Blood Pressure Source [Right Arm] Blood Pressure Position [Right Arm] 02 Sat by Pulse Oximetry 98 99 95 Oxygen Delivery Method Lab Data Lab Results 03/04/25 13:20: WBC 28.1 H*, RBC 5.72 H, Hgb 16.8 H, Hct 48.5 H, MCV 84.8, MCH 29.4, MCHC 34.6, RDW 12.8, Plt Count 322, MPV 11.0 H, Neut % (Auto) 86.3 H, L ymph % (Auto) 4.6 L, Kings % (Auto) 8.3, Eos % (Auto) 0.0 L, Baso % (Auto) 0.3, N eut # (Auto) 24.2 H, Lymph # (Auto) 1.3, Kings # (Auto) 2.3 H, Eos # (Auto) 0.0, Baso # (Auto) 0.1, Total Counted 100, Neutrophils % (Manual) 86 H, Lymphocytes % (Manual) 4 L, Monocytes % (Manual) 10 H, Platelet Estimate Normal, RBC Morphology Normal, Sodium 136, Potassium 4.0, Chloride 100, Carbon Dioxide 24, A nion Gap 16.0 H, BUN 14, Creatinine 0.70, Estimated Creat Clear 103, Estimated GFR 89, Est GFR ( Amer) 107, Glucose 164 H, Calcium 9.3, Total Bilirubin 1.1, AST 35, ALT 34, Alkaline Phosphatase 109, Total Protein 7.4, Albumin 4.5, Globulin 2.9, Albumin/Globulin Ratio 1.6, Lipase 20 L, Serum HCG, Qual Negative, HCV Ab RYANNE w/Rflx PCR Qn Negative, HIV Ag/Ab Combo Qual Negative 03/04/25 13:53: Urine Color Yellow, Urine Appearance Clear, Urine pH 6.0, Ur Specific Ida >= 1.030, Urine Protein 1+ A, Urine Glucose (UA) Negative, Urine Ketones 3+, Urine Blood Trace-i, Urine Nitrate Negative, Urine Bilirubin 2+ A, Urine Urobilinogen 0.2, Ur Leukocyte Esterase Negative, Urine RBC None, Urine WBC 5-10, Ur Squamous Epith Cells 3-5, Urine Bacteria 2+ 03/04/25 15:01: Lactate 2.9 H 03/04/25 13:20 03/04/25 13:20 Orders (Tests/Meds): ED MEDICATIONS Generic Name Dose Route Start Last Admin Trade Name Stone PRN Reason Stop Dose Admin Lactated Ringer's 1,000 mls @ 999 mls/hr 03/04/25 15:33 03/04/25 15:46 Lactated Ringer's 1000 Ml Bag IV 03/04/25 16:33 999 mls/hr .Q1H1M ONE Administration Metronidazole 500 mg in 100 mls @ 100 mls/hr 03/04/25 15:33 03/04/25 15:46 Flagyl 500mg/100ml Ivpb IV 03/04/25 16:32 100 mls/hr ONCE ONE Administration Sodium Chloride 10 ml 03/04/25 14:08 03/04/25 14:10 Sodium Chloride 0.9% 10ml Syr (Rad Only) IV 04/03/25 14:07 10 ml NEEDED PRN Administration Maintain IV Site Discontinued Medications Generic Name Dose Route Start Last Admin Trade Name Stone PRN Reason Stop Dose Admin Hydromorphone HCl 0.5 mg 03/04/25 15:33 03/04/25 15:46 Hydromorphone 2mg/Ml Syringe IV 03/04/25 15:34 0.5 mg ONCE ONE Administration Lactated Ringer's 1,000 mls @ 999 mls/hr 03/04/25 14:19 03/04/25 14:25 Lactated Ringer's 1000 Ml Bag IV 03/04/25 15:19 999 mls/hr .Q1H1M ONE Administration Iopamidol 75 ml 03/04/25 14:08 03/04/25 14:09 Iopamidol-370 (76%);100ml Bottle IV 03/04/25 14:09 75 ml ONCE ONE Administration Morphine Sulfate 4 mg 03/04/25 13:44 03/04/25 13:57 Morphine 4mg/Ml Syringe IV 03/04/25 13:45 4 mg ONCE ONE Administration Ondansetron HCl 4 mg 03/04/25 13:44 03/04/25 13:57 Ondansetron 4mg/2ml Vial IV 03/04/25 13:45 4 mg ONCE ONE Administration ORDERS Category Date Time Status CT abdomen pelvis w con Stat Cat Scan 03/04/25 13:44 Completed CBC w/Auto Diff [Complete Blood Count Auto Diff] Stat Lab 03/04/25 13:20 Completed CMP [Comprehensive Metabolic Panel] Stat Lab 03/04/25 13:20 Completed Diarrhea 6-11 Panel, Cdiff PCR Stat Lab 03/04/25 13:53 Received HCG Qualitative, Serum Stat Lab 03/04/25 13:20 Completed HIV Combo Stat Lab 03/04/25 13:20 Completed Hepatitis C Ab Qual. W/ RFX Stat Lab 03/04/25 13:20 Completed Lactic Acid Stat Lab 03/04/25 15:01 Completed Lipase Stat Lab 03/04/25 13:20 Completed UA [Urinalysis and Microscopic] Stat Lab 03/04/25 13:53 Completed Blood Culture Stat Micro 03/04/25 15:01 Received Urine Culture Stat Micro 03/04/25 13:53 Received ECG Data Tracing #1: I reviewed this ECG and interpreted as documented below: EKG personally interpreted by me demonstrates sinus tachycardia with a rate of 103 bpm, right axis, no PA prolongation, narrow QRS, no QTc prolongation. No ST elevation or depression. No overt signs of ischemia or arrhythmia Medical Decision Narrative: In summary this is a 50-year-old female patient who is presenting to the emergency department today for evaluation of abdominal pain and cramping with diarrhea persisting over the last 9 days. This occurs in the setting of recent antibiotic use with clindamycin for dental infection. She does not have any significant comorbidities. On initial evaluation of the patient she appeared to be in acute painful distress and was tachycardic. She is normotensive. She is saturating well on room air and is neurologically intact. On physical exam she has significant abdominal tenderness to palpation in all 4 quadrants. Her heart and lungs are clear to auscultation bilaterally. Her mucous membranes do appear dry. Differential diagnosis to include C. difficile infection, infectious enteritis, infectious colitis, toxic megacolon, pseudomembranous colitis, pneumoperitoneum, cholecystitis, among others. Initial interventions included 1 L of lactated Ringer's as well as 4 mg of morphine and 4 mg of Zofran. We did proceed with hematologic labs including blood cultures as well as urine studies, stool studies, and a CT scan of the abdomen and pelvis. Labs were personally interpreted by me and demonstrated a leukocytosis of 28. There is a neutrophilic shift. She has no significant electrolyte derangements. Lipase is within normal limits. test negative. Urine is negative for nitrites and leukocyte esterase which suggest against urinary tract infection. CT scan of the abdomen and pelvis was personally turbid by me and demonstrates no evidence of pneumoperitoneum. <Cb Nayak MD - Last Filed: 03/04/25 16:16> Vital Signs: 03/04/25 13:22 03/04/25 13:30 03/04/25 14:00 Temperature 98.1 F Temperature Source Oral Pulse Rate 102 H 104 H Pulse Rate [Right Radial] 115 H Respiratory Rate 18 15 13 Blood Pressure 175/118 H 161/110 H Blood Pressure [Right Arm] 172/106 H Blood Pressure Mean [Right Arm] 128 Blood Pressure Source [Right Arm] Automatic Cuff Blood Pressure Position [Right Arm] Supine 02 Sat by Pulse Oximetry 100 100 100 Oxygen Delivery Method Room Air 03/04/25 14:17 03/04/25 14:18 03/04/25 14:30 Temperature Temperature Source Pulse Rate 102 H 104 H 93 H Pulse Rate [Right Radial] Respiratory Rate 15 17 14 Blood Pressure 184/109 H 183/106 H 167/102 H Blood Pressure [Right Arm] Blood Pressure Mean [Right Arm] Blood Pressure Source [Right Arm] Blood Pressure Position [Right Arm] 02 Sat by Pulse Oximetry 100 98 99 Oxygen Delivery Method 03/04/25 15:00 03/04/25 15:30 03/04/25 16:00 Temperature Temperature Source Pulse Rate 96 H 105 H 109 H Pulse Rate [Right Radial] Respiratory Rate 15 16 14 Blood Pressure 167/101 H 184/112 H 156/103 H Blood Pressure [Right Arm] Blood Pressure Mean [Right Arm] Blood Pressure Source [Right Arm] Blood Pressure Position [Right Arm] 02 Sat by Pulse Oximetry 98 99 95 Oxygen Delivery Method Lab Data Lab Results 03/04/25 13:20: WBC 28.1 H*, RBC 5.72 H, Hgb 16.8 H, Hct 48.5 H, MCV 84.8, MCH 29.4, MCHC 34.6, RDW 12.8, Plt Count 322, MPV 11.0 H, Neut % (Auto) 86.3 H, L ymph % (Auto) 4.6 L, Kings % (Auto) 8.3, Eos % (Auto) 0.0 L, Baso % (Auto) 0.3, N eut # (Auto) 24.2 H, Lymph # (Auto) 1.3, Kings # (Auto) 2.3 H, Eos # (Auto) 0.0, Baso # (Auto) 0.1, Total Counted 100, Neutrophils % (Manual) 86 H, Lymphocytes % (Manual) 4 L, Monocytes % (Manual) 10 H, Platelet Estimate Normal, RBC Morphology Normal, Sodium 136, Potassium 4.0, Chloride 100, Carbon Dioxide 24, A nion Gap 16.0 H, BUN 14, Creatinine 0.70, Estimated Creat Clear 103, Estimated GFR 89, Est GFR ( Amer) 107, Glucose 164 H, Calcium 9.3, Total Bilirubin 1.1, AST 35, ALT 34, Alkaline Phosphatase 109, Total Protein 7.4, Albumin 4.5, Globulin 2.9, Albumin/Globulin Ratio 1.6, Lipase 20 L, Serum HCG, Qual Negative, HCV Ab RYANNE w/Rflx PCR Qn Negative, HIV Ag/Ab Combo Qual Negative 03/04/25 13:53: Urine Color Yellow, Urine Appearance Clear, Urine pH 6.0, Ur Specific Ida >= 1.030, Urine Protein 1+ A, Urine Glucose (UA) Negative, Urine Ketones 3+, Urine Blood Trace-i, Urine Nitrate Negative, Urine Bilirubin 2+ A, Urine Urobilinogen 0.2, Ur Leukocyte Esterase Negative, Urine RBC None, Urine WBC 5-10, Ur Squamous Epith Cells 3-5, Urine Bacteria 2+ 03/04/25 15:01: Lactate 2.9 H Orders (Tests/Meds): ED MEDICATIONS Generic Name Dose Route Start Last Admin Trade Name Freq PRN Reason Stop Dose Admin Lactated Ringer's 1,000 mls @ 999 mls/hr 03/04/25 15:33 03/04/25 15:46 Lactated Ringer's 1000 Ml Bag IV 03/04/25 16:33 999 mls/hr .Q1H1M ONE Administration Metronidazole 500 mg in 100 mls @ 100 mls/hr 03/04/25 15:33 03/04/25 15:46 Flagyl 500mg/100ml Ivpb IV 03/04/25 16:32 100 mls/hr ONCE ONE Administration Sodium Chloride 10 ml 03/04/25 14:08 03/04/25 14:10 Sodium Chloride 0.9% 10ml Syr (Rad Only) IV 04/03/25 14:07 10 ml NEEDED PRN Administration Maintain IV Site Discontinued Medications Generic Name Dose Route Start Last Admin Trade Name Stone PRN Reason Stop Dose Admin Hydromorphone HCl 0.5 mg 03/04/25 15:33 03/04/25 15:46 Hydromorphone 2mg/Ml Syringe IV 03/04/25 15:34 0.5 mg ONCE ONE Administration Lactated Ringer's 1,000 mls @ 999 mls/hr 03/04/25 14:19 03/04/25 14:25 Lactated Ringer's 1000 Ml Bag IV 03/04/25 15:19 999 mls/hr .Q1H1M ONE Administration Iopamidol 75 ml 03/04/25 14:08 03/04/25 14:09 Iopamidol-370 (76%);100ml Bottle IV 03/04/25 14:09 75 ml ONCE ONE Administration Morphine Sulfate 4 mg 03/04/25 13:44 03/04/25 13:57 Morphine 4mg/Ml Syringe IV 03/04/25 13:45 4 mg ONCE ONE Administration Ondansetron HCl 4 mg 03/04/25 13:44 03/04/25 13:57 Ondansetron 4mg/2ml Vial IV 03/04/25 13:45 4 mg ONCE ONE Administration ORDERS Category Date Time Status CT abdomen pelvis w con Stat Cat Scan 03/04/25 13:44 Completed CBC w/Auto Diff [Complete Blood Count Auto Diff] Stat Lab 03/04/25 13:20 Completed CMP [Comprehensive Metabolic Panel] Stat Lab 03/04/25 13:20 Completed Diarrhea 6-11 Panel, Cdiff PCR Stat Lab 03/04/25 13:53 Received HCG Qualitative, Serum Stat Lab 03/04/25 13:20 Completed HIV Combo Stat Lab 03/04/25 13:20 Completed Hepatitis C Ab Qual. W/ RFX Stat Lab 03/04/25 13:20 Completed Lactic Acid Stat Lab 03/04/25 15:01 Completed Lipase Stat Lab 03/04/25 13:20 Completed UA [Urinalysis and Microscopic] Stat Lab 03/04/25 13:53 Completed Blood Culture Stat Micro 03/04/25 15:01 Received Urine Culture Stat Micro 03/04/25 13:53 Received Medical Decision Narrative: In summary this is a 50-year-old female patient who is presenting to the emergency department today for evaluation of abdominal pain and cramping with diarrhea persisting over the last 9 days. This occurs in the setting of recent antibiotic use with clindamycin for dental infection. She does not have any significant comorbidities. On initial evaluation of the patient she appeared to be in acute painful distress and was tachycardic. She is normotensive. She is saturating well on room air and is neurologically intact. On physical exam she has significant abdominal tenderness to palpation in all 4 quadrants. Her heart and lungs are clear to auscultation bilaterally. Her mucous membranes do appear dry. Differential diagnosis to include C. difficile infection, infectious enteritis, infectious colitis, toxic megacolon, pseudomembranous colitis, pneumoperitoneum, cholecystitis, among others. Initial interventions included 1 L of lactated Ringer's as well as 4 mg of morphine and 4 mg of Zofran. We did proceed with hematologic labs including blood cultures as well as urine studies, stool studies, and a CT scan of the abdomen and pelvis. Labs were personally interpreted by me and demonstrated a leukocytosis of 28. There is a neutrophilic shift. She has no significant electrolyte derangements. Lipase is within normal limits. test negative. Urine is negative for nitrites and leukocyte esterase which suggest against urinary tract infection. CT scan of the abdomen and pelvis was personally turbid by me and demonstrates no evidence of pneumoperitoneum. Cb Nayak MD I assumed care of this patient at 1500. The previous provider had considered sepsis bolus fluids, however given she appeared euvolemic on exam, administered 1 L. Patient had been on clindamycin for dental infection but over the last 2 weeks has had multiple episodes of watery diarrhea and has lost 12 pounds since the beginning of February. Patient was noted to be tachycardic on arrival. Significantly elevated white blood cell count of 28,000. C. difficile and diarrhea panel is pending. Patient's lactate came back elevated at 2.9. Patient was receiving 1 L lactated ringer, however will give additional 1 L lactated ringer for continued tachycardia and presumed sepsis. She has remained mildly tachycardic with a heart rate of 105 at this time. Due to concern for C. difficile colitis in the setting of sepsis, will initiate 500 mg of IV Flagyl. CT imaging resulted and showed thickened bowel wall consistent with colitis but no evidence of toxic megacolon or obstruction. See final radiology report for details. Given this, is felt the patient will require admission for continued IV antibiotics in the setting of her sepsis likely from C. difficile colitis, however stool panels are pending at this time. I discussed patient's case with Dr. Cho with the hospital medicine service who agreed to admit the patient. I discussed admission with patient and family and they were in agreement with admission at this time Critical Care <Jose Yang, DO - Last Filed: 03/04/25 15:51> Critical Care Time Critical Care Time: No
--- NOTE | 2025-03-04 15:30 | PC.NURSE ---
Family presented to the nurses station stating they are concerned her pain has increased. I notified . He states he will put in orders to medicate her for pain
[2025-03-04] MEDS: HYDROMORPHONE 2MG/ML SYRINGE 0.5 MG IV (15:46)
[2025-03-04] MEDS: METRONIDAZ/SOD CHL 500 MG/100 ML PIGGYBACK 100 MG IV (15:46)
--- NOTE | 2025-03-04 15:55 | PC.NURSE ---
MD is reaching out to the hospitalist about possible admission.
--- NOTE | 2025-03-04 16:02 | PC.NURSE ---
I notified HS of the need for a bed to admit the pt to the hospitalist.
--- NOTE | 2025-03-04 16:44 | PC.NURSE ---
Report given to Carola SHINE
[2025-03-04 17:16] LABS: Clostridium Difficile A/B, PCR Detected (NotDetected)
--- NOTE | 2025-03-04 17:27 | EXP.HP ---
History of Present Illness *Admission Date: 03/04/25 *Reason for visit:: Diarrhea *History of present illness: This is a 50-year-old female that presents to [facility] emergency department with concerns of diarrhea for greater than 1 week not resolving with [id number] Imodium care. She reports recent courses of clindamycin from her dentist. She describes her diarrhea as [place] stool type VII with no associated melena, hematochezia or mucus strands. She describes tenesmus prior to bowel elimination but no crescendo abdominal pain. She characterizes her abdominal pain as cramping and is located across her lower quadrants. She has identified no associated fever, chills, rashes, dysuria or gross hematuria. She reports nausea and loss of appetite but no overt emesis. She describes decreased p.o. intake over the past 3 to 4 days. She is able to keep liquids down. Her ED evaluation identified tachycardia, tachypnea, leukocytosis and lactic acidosis. She received IV fluid resuscitation and IV antibiotic therapy with stool studies sent for evaluation. Hospital medicine was asked to admit the patient. Shared decision-making has occurred and the patient is amenable to admission to the hospital. [facility] Medical History (Updated 03/04/25 @ 17:53 by Corwin Sheets MD) Kidney stones Hypothyroidism Chronic, continuous use of opioids Hypertension Surgical History (Updated 03/04/25 @ 17:53 by Corwin Sheets MD) S/P cholecystectomy Status post hysterectomy Family History Family/Other No significant family history Social History (Updated 03/04/25 @ 17:38 by Carola Robbins RN) Smoking Status: Never smoker alcohol intake: never current occupational status: employed Travel in the last 8 weeks?: None Review of Systems Review of Systems Review of systems:: pertinent systems reviewed and negative unless documented below Meds Home Medications and Allergies Home Medications ?Medication ?Instructions ?Recorded ?Confirmed ?Type amlodipine 5 mg tablet 5 mg PO DAILY 02/28/25 03/04/25 History gabapentin 600 mg tablet 600 mg PO BID 02/28/25 03/04/25 History hydrocodone 7.5 mg-acetaminophen 1 tab PO Q8H PRN back pain 02/28/25 03/04/25 History 325 mg tablet levothyroxine 75 mcg capsule 75 mcg PO DAILY 02/28/25 03/04/25 History loperamide 2 mg capsule 2 mg PO QID PRN loose stool #20 02/28/25 03/04/25 Rx (Anti-Diarrheal (loperamide)) caps vitamin E (dl, acetate) 180 mg 180 mg PO BID 02/28/25 03/04/25 History (400 unit) capsule New Prescriptions to Start Prescriptions: Allergies Allergy/AdvReac Type Severity Reaction Status Date / Time naproxen Allergy Verified 02/28/25 11:38 Exam Data for Last 24 hours Vital signs and Labs for Last 24 Hours: Temp Pulse Resp BP Pulse Ox O2 Del Method 98.7 F 113 H 20 169/98 H 96 Room Air 03/04/25 17:01 03/04/25 17:01 03/04/25 17:01 03/04/25 17:01 03/04/25 16:30 03/04/25 17:01 Laboratory Results - last 24 hr 03/04/25 13:20: WBC 28.1 H*, RBC 5.72 H, Hgb 16.8 H, Hct 48.5 H, MCV 84.8, MCH 29.4, MCHC 34.6, RDW 12.8, Plt Count 322, MPV 11.0 H, Neut % (Auto) 86.3 H, Lymph % (Auto) 4.6 L, Power % (Auto) 8.3, Eos % (Auto) 0.0 L, Baso % (Auto) 0.3, Neut # (Auto) 24.2 H, Lymph # (Auto) 1.3, Power # (Auto) 2.3 H, Eos # (Auto) 0.0, Baso # (Auto) 0.1, Total Counted 100, Neutrophils % (Manual) 86 H, Lymphocytes % (Manual) 4 L, Monocytes % (Manual) 10 H, Platelet Estimate Normal, RBC Morphology Normal, Sodium 136, Potassium 4.0, Chloride 100, Carbon Dioxide 24, Anion Gap 16.0 H, BUN 14, Creatinine 0.70, Estimated Creat Clear 103, Estimated GFR 89, Est GFR ( Amer) 107, Glucose 164 H, Calcium 9.3, Total Bilirubin 1.1, AST 35, ALT 34, Alkaline Phosphatase 109, Total Protein 7.4, Albumin 4.5, Globulin 2.9, Albumin/Globulin Ratio 1.6, Lipase 20 L, Serum HCG, Qual Negative, HCV Ab RYANNE w/Rflx PCR Qn Negative, HIV Ag/Ab Combo Qual Negative 03/04/25 13:53: Urine Color Yellow, Urine Appearance Clear, Urine pH 6.0, Ur Specific [place] >= 1.030, Urine Protein 1+ A, Urine Glucose (UA) Negative, Urine Ketones 3+, Urine Blood Trace-i, Urine Nitrate Negative, Urine Bilirubin 2+ A, Urine Urobilinogen 0.2, Ur Leukocyte Esterase Negative, Urine RBC None, Urine WBC 5-10, Ur Squamous Epith Cells 3-5, Urine Bacteria 2+, Stl C. cayetanensis PCR Not detected, Stool Rotavirus (PCR) Not detected, Stl Adenov F 40/41 PCR Not detected, Stool Astrovirus (PCR) Not detected, Stool Campylobacter PCR Not detected, Stl C.difficile Tox PCR Detected A, Stool Cryptosporidium PCR Not detected, Stl E.coli Shiga Tox PCR Not detected, Stool E coli O157 PCR Not detected, Stl Enterotoxigenic E PCR Not detected, Stool EPEC (PCR) Detected A, Stool EAEC (PCR) Not detected, Stl E. histolytica PCR Not detected, Stool Giardia Lamblia PCR Not detected, Stool Salmonella PCR Not detected, Stool Sapovirus (PCR) Not detected, Stl P. shigelloides PCR Not detected, Stl Shigella/EIEC PCR Not detected, St Y.enterocolitica PCR Not detected, Stool Vibrio (PCR) Not detected, Stl Vibrio cholerae PCR Not detected, Stl Norovirus GI/GII PCR Not detected 03/04/25 15:01: Lactate 2.9 H I & O for Last 24 hours: Intake & Output 03/01/25 03/02/25 03/03/25 03/04/25 23:59 23:59 23:59 23:59 Weight 68.039 kg *Routine HEENT Exam Head: Present normocephalic Eye: Present EOMI and PERRL ENT: Present mucous membranes moist *Routine Neck Exam Neck: Present supple and trachea midline; Absent JVD *Routine Respiratory Exam Respiratory: Present CTA bilaterally, normal respiratory effort and symmetric chest movement *Routine Cardiovascular Exam Cardiovascular: Present RRR, Normal S1 and Normal S2; Absent murmur *Routine Abdominal Exam Abdominal: Present soft, normoactive bowel sounds and tenderness; Absent distended or guarding *Routine Rectal Exam Rectal:: deferred *Routine Genitalia Exam Genitalia:: deferred *Routine Extremities Exam Extremities: Present full ROM, pulses intact and normal capillary refill; Absent edema *Routine Skin Exam Skin: Present intact; Absent rash *Routine Neurological Exam Neurological: Present alert, oriented X3, moving all extremities, vision grossly intact, hearing grossly intact and normal speech; Absent sensory deficit or motor deficit Routine Psychiatric Exam Psychiatric: Present normal affect, normal thought process, cooperative and good insight Assessment and Plan *Assessment and plan (1) Severe sepsis with acute organ dysfunction: Status: Acute Category: Medical Code(s): A41.9 - Sepsis, unspecified organism; R65.20 - Severe sepsis without septic shock (2) Colitis: Status: Acute Category: Medical Code(s): K52.9 - Noninfective gastroenteritis and colitis, unspecified (3) Hypertension: Status: Chronic Category: Medical Code(s): I10 - Essential (primary) hypertension (4) Hypothyroidism: Status: Acute Category: Medical Code(s): E03.9 - Hypothyroidism, unspecified Plan This is a 50-year-old female with recent courses of clindamycin and now diarrhea. ED evaluation identified severe sepsis and CT scan of the abdomen and pelvis identified colitis. Problems addressed as follows: Severe sepsis with acute organ dysfunction, present on admission Tachycardia, tachypnea, leukocytosis, lactic acidosis, source identified IV fluid resuscitation with lactic acid reflex pending Blood cultures pending Trending labs and inflammatory markers Antibiotic therapy C. difficile colitis GI PCR positive for C. difficile Oral vancomycin therapy Trending labs and inflammatory markers Gastroenterology consult IV fluid resuscitation Antiemetic therapy Pain control Parenterally administered controlled substance for comfort care Contact precautions Hand hygiene with soap and water Hypertension Routine blood pressure monitoring Dihydropyridine calcium channel karime therapy Hypothyroidism Levothyroxine replacement therapy The length of stay for this patient will be 2 midnights or greater due to above diagnoses.
[2025-03-04] MEDS: AMLODIPINE 5MG TABLET 5 MG PO (18:00)
[2025-03-04] MEDS: LACTATED RINGERS 1000ML 1,000 ML 125 ML IV (18:00)
[2025-03-04 19:12] LABS: Reflex Lactic Add Lactic Reflex
[2025-03-04 20:19] LABS: Lactic Acid Follow Up (RFLX 1) 0.9 mmol/L (0.7-2.1)
[2025-03-04] MEDS: GABAPENTIN 600MG TABLET 600 MG PO (20:22)
[2025-03-04] MEDS: PANTOPRAZOLE 40MG TABLET 40 MG PO (20:22)
[2025-03-04] MEDS: VANCOMYCIN HCL 50MG/ML 150ML KIT 125 MG PO (20:22)
[2025-03-05] VITALS: BP 149/73; PULSE 110; RESP 16; TEMP 37.5; O2SAT 96
[2025-03-05 00:17] VITALS: TEMP 37.1
[2025-03-05] MEDS: MORPHINE 4MG/ML SYRINGE 4 MG IV (00:51)
[2025-03-05] MEDS: LACTATED RINGERS 1000ML 1,000 ML 125 ML IV ×2 (00:59→09:23)
[2025-03-05 04:00] VITALS: BP 131/68; PULSE 102; RESP 16; TEMP 36.7; O2SAT 97; BMI 24.0
--- NOTE | 2025-03-05 04:13 | PC.NURSE ---
Pt is A&Ox4. Pt is on RA. Pt VSS. Pt in contact enteric precautions. Pt has had a few loose foul smelling bowel movements. Pt has been medicated for pain this shift. Bowel Sounds Active. Pt medicated per SEP. Pt not voicing any concerns. Pt resting w/ call light in reach. POC ongoing.
[2025-03-05] MEDS: HYDROCODONE/APAP 5/325 MG TABLET 1.5 TAB PO ×2 (06:15→20:57)
[2025-03-05 07:06] LABS: Nucleated Red Blood Cells % 0 %
[2025-03-05 07:10] LABS: Hematocrit 38.9 % (37.0-47.0); Hemoglobin 12.9 g/dL (12.2-16.2); Immature Granulocytes % 0.4 %; Mean Corpuscular HGB Conc 33.2 g/dL (31.8-35.4); Mean Corpuscular Hemoglobin 28.4 pg (27.0-31.2); Mean Corpuscular Volume 85.5 fl (81-99); Platelet Count 226 K/mm3 (142-424); Red Blood Count 4.55 M/mm3 (4.20-5.40); Red Cell Distribution Width-SD 40.7 fL; White Blood Count 19.6 K/mm3 (4.8-10.8)
[2025-03-05 07:12] LABS: Chloride 103 mmol/L (98-107)
[2025-03-05 07:13] LABS: Potassium 3.8 mmoL/L (3.5-5.1); Sodium 132 mmol/L (136-145)
[2025-03-05 07:15] LABS: Blood Urea Nitrogen 14 mg/dl (7-17); Creatinine Clearance Estimated 103 mL/min (50-200); Creatinine,Serum 0.70 mg/dl (0.52-1.04); Estimated Glomerular Filt Rate 89 ml/min (>60); GFR (African American) 107 ML/MIN (>60)
[2025-03-05 07:16] LABS: Anion Gap 4.8 mEq/L (5-15); Calcium 7.9 mg/dl (8.4-10.2); Carbon Dioxide 28 mmol/L (22.0-30.0); Glucose 117 mg/dl (74-100); Magnesium 1.7 mg/dl (1.6-2.3)
[2025-03-05 07:58] LABS: RBC Morphology Normal; Total Cells Counted 100
[2025-03-05 08:00] VITALS: BP 121/86; PULSE 96; RESP 14; TEMP 37; O2SAT 98
--- NOTE | 2025-03-05 08:47 | HMH.PHAINT1 ---
Pharmacy Intervention Comments: MEDICATION RECONCILIATION COMPLETE USING EXTERNAL PHARMACY FILL HISTORY, NHUNG REPORT.
[2025-03-05] MEDS: VANCOMYCIN HCL 50MG/ML 150ML KIT 125 MG PO ×4 (09:23→20:37)
[2025-03-05] MEDS: GABAPENTIN 600MG TABLET 600 MG PO ×2 (09:23→20:37)
[2025-03-05] MEDS: LEVOTHYROXINE 75MCG (0.075MG) TAB 75 MCG PO (09:23)
[2025-03-05] MEDS: AMLODIPINE 5MG TABLET 5 MG PO (09:29)
--- NOTE | 2025-03-05 14:50 | P.PN_ITS ---
Subjective *Date: 03/05/25 *Time: 14:50 Interval history: Patient is feeling slightly better, diarrhea improved. Having poor oral tolerance, due to nausea. Continue oral vancomycin. For C. difficile Exam Data for Last 24 hours Vital signs and Labs for Last 24 Hours: Temp Pulse Resp BP Pulse Ox O2 Del Method 98.6 F 96 H 14 121/86 98 Room Air 03/05/25 08:00 03/05/25 08:00 03/05/25 08:00 03/05/25 08:00 03/05/25 08:00 03/05/25 13:00 Laboratory Results - last 24 hr 03/04/25 07:45: Lactate 0.9 03/04/25 13:20: Total Counted 100, Neutrophils % (Manual) 86 H, Lymphocytes % (Manual) 4 L, Monocytes % (Manual) 10 H, Platelet Estimate Normal, RBC Morphology Normal, HCV Ab RYANNE w/Rflx PCR Qn Negative, HIV Ag/Ab Combo Qual Negative 03/04/25 13:53: Stl C. cayetanensis PCR Not detected, Stool Rotavirus (PCR) Not detected, Stl Adenov F 40/41 PCR Not detected, Stool Astrovirus (PCR) Not detected, Stool Campylobacter PCR Not detected, Stl C.difficile Tox PCR Detected A, Stool Cryptosporidium PCR Not detected, Stl E.coli Shiga Tox PCR Not detected, Stool E coli O157 PCR Not detected, Stl Enterotoxigenic E PCR Not detected, Stool EPEC (PCR) Detected A, Stool EAEC (PCR) Not detected, Stl E. histolytica PCR Not detected, Stool Giardia Lamblia PCR Not detected, Stool Salmonella PCR Not detected, Stool Sapovirus (PCR) Not detected, Stl P. shigelloides PCR Not detected, Stl Shigella/EIEC PCR Not detected, St Y.enterocolitica PCR Not detected, Stool Vibrio (PCR) Not detected, Stl Vibrio cholerae PCR Not detected, Stl Norovirus GI/GII PCR Not detected 03/04/25 15:01: Lactate 2.9 H 03/05/25 06:40: WBC 19.6 H D, RBC 4.55, Hgb 12.9 D, Hct 38.9, MCV 85.5, MCH 28.4, MCHC 33.2, RDW 13.2, Plt Count 226 D, MPV 10.7 H, Neut % (Auto) 78.0, Lymph % (Auto) 10.3, [place] % (Auto) 10.8 H, Eos % (Auto) 0.1, Baso % (Auto) 0.4, Neut # (Auto) 15.3 H, Lymph # (Auto) 2.0, [place] # (Auto) 2.1 H, Eos # (Auto) 0.0, Baso # (Auto) 0.1, Total Counted 100, Neutrophils % (Manual) 73, Lymphocytes % (Manual) 18, Monocytes % (Manual) 9, Platelet Estimate Normal, RBC Morphology Normal, Sodium 132 L, Potassium 3.8, Chloride 103, Carbon Dioxide 28, Anion Gap 4.8 L, BUN 14, Creatinine 0.70, Estimated Creat Clear 103, Estimated GFR 89, Est GFR ( Amer) 107, Glucose 117 H D, Calcium 7.9 L, Magnesium 1.7 I & O for Last 24 hours: Intake & Output 03/02/25 03/03/25 03/04/25 03/05/25 23:59 23:59 23:59 23:59 Intake Total 680 / 680 Output Total 0 / 0 0 / 0 Balance 0 / 500 680 / 680 Weight 68.039 kg 68.039 kg Microbiology Reports for the Last 24 Hours: Microbiology 03/04/25 14:40 Blood Blood Culture - Final 03/04/25 13:53 Urine,Clean Catch Urine Culture - Preliminary Constitutional Constitutional: no acute distress *Routine HEENT Exam Head: Present normocephalic Eye: Present EOMI and PERRL ENT: Present mucous membranes moist *Routine Neck Exam Neck: Present supple; Absent lymphadenopathy *Routine Respiratory Exam Respiratory: Present CTA bilaterally *Routine Cardiovascular Exam Cardiovascular: Present RRR *Routine Abdominal Exam Abdominal: Present soft and tenderness; Absent normoactive bowel sounds Comments: Hypoactive bowel sounds *Routine Extremities Exam Extremities: Absent cyanosis, clubbing or edema *Routine Skin Exam Skin: Present warm; Absent rash *Routine Neurological Exam Neurological: Present alert and oriented X3 Assessment and Plan *Assessment and plan (1) Severe sepsis with acute organ dysfunction: Status: Acute Category: Medical Code(s): A41.9 - Sepsis, unspecified organism; R65.20 - Severe sepsis without septic shock (2) Colitis: Status: Acute Category: Medical Code(s): K52.9 - Noninfective gastroenteritis and colitis, unspecified (3) Hypertension: Status: Chronic Category: Medical Code(s): I10 - Essential (primary) hypertension (4) Hypothyroidism: Status: Acute Category: Medical Code(s): E03.9 - Hypothyroidism, unspecified Plan This is a 50-year-old female with recent courses of clindamycin and now diarrhea. ED evaluation identified severe sepsis and CT scan of the abdomen and pelvis identified colitis. Problems addressed as follows: #Severe sepsis, resolved #Sepsis Presented with tachycardia, tachypnea, leukocytosis, lactic acidosis, source identified C. difficile colitis GI PCR positive for C. difficile Continue oral vancomycin 125 mg 4 times daily. ? WBC improved from 28-19.6 today. Continues to have tachycardia, HR 96. ? Patient feels a little better today, diarrhea improved, continues to have poor oral tolerance due to abdominal pain and nausea. No peritoneal signs. ? Follow-up CBC, CMP in the morning. Hand hygiene with soap and water Hypertension Routine blood pressure monitoring Dihydropyridine calcium channel karime therapy Hypothyroidism Levothyroxine replacement therapy The length of stay for this patient will be 2 midnights or greater due to above diagnoses.
[2025-03-05 16:00] VITALS: BP 114/61; PULSE 97; RESP 14; TEMP 37.3; O2SAT 99
[2025-03-05] MEDS: LACTATED RINGERS 1000ML 1,000 ML 100 ML IV (16:29)
[2025-03-05 16:45] LABS: Acinetobacter calcoaceticus-ba Not Detected; Bacteroides fragilis Not Detected; Candida auris Not Detected; Candida glabrata Not Detected; Enterobacterales Not Detected; Enterococcus faecalis Not Detected; Enterococcus faecium Not Detected; Klebsiella aerogenes Not Detected; Klebsiella pneumoniae grp Not Detected; Proteus spp. Not Detected; Salmonella spp. Not Detected; Serratia marcescens Not Detected; Staphylococcus epidermidis Detected; Staphylococcus lugdunensis Not Detected; Staphylococcus spp. Detected; Stenotrophomonas maltophilia Not Detected; Streptococcus agalactiae(GrpB) Not Detected; Streptococcus pyogenes Group A Not Detected; Streptococcus spp. Not Detected; mecA/C Detected
--- NOTE | 2025-03-05 17:13 | PC.NURSE ---
Pt is A&Ox4. Vital signs stable tolerating room air. PO abx given per SEP. IV fluids infusing. Offered pt pain medication several times this shift for abdominal pain. Pt verbalizes not wanting anything for pain this shift. Pt continues to have diarrhea today. Pt resting comfortably in bed with no further needs voiced at this time. Call light within reach.
[2025-03-05 20:00] VITALS: BP 114/55; PULSE 98; RESP 16; TEMP 37.1; O2SAT 96
[2025-03-05] MEDS: PANTOPRAZOLE 40MG TABLET 40 MG PO (20:37)
[2025-03-06] VITALS: BP 130/47; PULSE 85; RESP 16; TEMP 36.9; O2SAT 95
[2025-03-06] MEDS: LACTATED RINGERS 1000ML 1,000 ML 100 ML IV (03:29)
--- NOTE | 2025-03-06 03:44 | PC.NURSE ---
Pt A&Ox4. Pt is on RA. Pt VSS. Pt c/o abdominal tenderness and nausea. Pt having diarrhea. Pt medicated for pain this shift. Pt receiving oral vancomycin stored in fridge. Pt receiving LR @ 100 mls/hr. Pt showered this shift. Pt not voicing any concerns at this time. Pt resting w/ call light in reach. POC ongoing.
[2025-03-06 04:00] VITALS: BP 108/58; PULSE 90; RESP 16; TEMP 37; O2SAT 93; BMI 25.4
[2025-03-06] MEDS: LEVOTHYROXINE 75MCG (0.075MG) TAB 75 MCG PO (06:06)
[2025-03-06 06:40] LABS: Hematocrit 33.4 % (37.0-47.0); Immature Granulocytes % 0.9 %; Mean Corpuscular HGB Conc 33.8 g/dL (31.8-35.4); Mean Corpuscular Hemoglobin 29.6 pg (27.0-31.2); Mean Corpuscular Volume 87.4 fl (81-99); Nucleated Red Blood Cells % 0 %; Platelet Count 183 K/mm3 (142-424); Red Blood Count 3.82 M/mm3 (4.20-5.40); Red Cell Distribution Width-SD 41.5 fL; White Blood Count 15.2 K/mm3 (4.8-10.8)
[2025-03-06 06:52] LABS: Albumin Level 2.6 g/dl (3.5-5.0); Chloride 101 mmol/L (98-107); Potassium 3.8 mmoL/L (3.5-5.1); Sodium 132 mmol/L (136-145)
[2025-03-06 06:55] LABS: Alanine Aminotransferase 26 U/L (12-78); Albumin/Globulin Ratio 1.3 (1.1-1.8); Alkaline Phosphatase 73 U/L (38-126); Anion Gap 5.8 mEq/L (5-15); Aspartate Amino Transferase 22 U/L (14-36); Bilirubin,Total 0.4 mg/dl (0.2-1.3); Blood Urea Nitrogen 11 mg/dl (7-17); Calcium 7.7 mg/dl (8.4-10.2); Carbon Dioxide 29 mmol/L (22.0-30.0); Creatinine Clearance Estimated 95 mL/min (50-200); Creatinine,Serum 0.80 mg/dl (0.52-1.04); Estimated Glomerular Filt Rate 76 ml/min (>60); GFR (African American) 92 ML/MIN (>60); Globulin 2.0 g/dL (1.3-3.2); Glucose 83 mg/dl (74-100); Magnesium 1.8 mg/dl (1.6-2.3); Total Protein,Serum 4.6 g/dl (6.3-8.2)
[2025-03-06] MEDS: MAGNESIUM SULFATE IN WATER 2 GM/50 ML PIGGYBACK IV ×2 (07:11→08:31)
[2025-03-06 07:30] LABS: Hemoglobin 11.3 g/dL (12.2-16.2)
[2025-03-06 08:00] VITALS: BP 131/60; PULSE 92; RESP 18; TEMP 36.9; O2SAT 97
[2025-03-06 08:15] VITALS: O2SAT 97
[2025-03-06] MEDS: GABAPENTIN 600MG TABLET 600 MG PO (08:34)
[2025-03-06] MEDS: AMLODIPINE 5MG TABLET 5 MG PO (08:34)
[2025-03-06] MEDS: VANCOMYCIN HCL 50MG/ML 150ML KIT 125 MG PO ×2 (08:40→14:34)
--- OUTSIDE RECORDS SUMMARY | 2025-03-06 10:39 | XMS_ITS | Patient Health Record ---
Author Organization [facility] Address [address] [place] [address] Care Team Providers Care Media Relations Specialist Name Role Phone Deepika Saeed APRN Primary Care Provider Un available Oscar Lewis II Unavailable zSelf, Referral Unavailable Unavailable Octavio Martinez Unavailable [phone] Allergies Allergen (clinical drug ingredient) Drug/Non Drug Allergy documented on EMR Reaction Allergy Type Onset Date Status naproxen stomach upset Drug Allergy Act gera Naproxen Sodium DS stomach upset Drug Allergy Active Results Component Value Reference Range Notes Urine Test ANALYZER Reviewed date:12/23/2024 09:18:23 AM Interpretation:+OPI +HYD Performing Lab: Notes/Report: +OPI +HYD Heroin Metabolite (6AM) NEG Amphetamine (AMP) NEG Benzodiazepine (MARIAM) NEG Buprenorphine NEG Cocaine (SHANE) NEG Hydrocodone (HYD) POS Methadone (MTD) NEG Opiate (OPI) POS Oxycodone (OXY) NEG Urine Test LCMS Definitive Reviewed date:11/15/2024 09:33:38 AM Interpretation:+Hyd3/3 Performing Lab: Notes/Report: +Hyd3/3 Urine Test ANALYZER Reviewed date:02/21/2025 09:53:57 AM Interpretation:+HYD Performing Lab: Notes/Report: +HYD Heroin Metabolite (6AM) NEG Amphetamine (AMP) NEG Benzodiazepine (MARIAM) NEG Buprenorphine NEG Cocaine (SHANE) NEG Hydrocodone (HYD) POS Methadone (MTD) NEG Opiate (OPI) NEG Oxycodone (OXY) NEG Urine Test ANALYZER Reviewed [...] NEG Opiate (OPI) POS Oxycodone (OXY) NEG Reason For Referral No [...] Problem Chronic migraine without aura, non-refractory (disorder) (808315526412836) Migraine without aura, not intractable, without status migrainosus (G43.009) Active confirmed Problem Cervical spondylosis without myelopathy (521158926) Spondylosis without myelopathy or radiculopathy, cervical region (M47.812) Active confirmed Problem Lumbosacral spondylosis without myelopathy (55652444) Spondylosis without myelopathy or radiculopathy, lumbar 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) Active confirmed Problem Lumbar radiculopathy (211931300) Radiculopathy, lumbar region (M54.16) Active confirmed Problem Long-term current use of drug therapy (963784194) Other fpc (current) drug therapy (Z79.899) Active confirmed Vital Signs Heart Rate 81 /min 02/21/2025 Blood pressure diastolic 102 mm Hg 02/21/2025 Height 66 in 02/21/2025 Blood pressure systolic 149 mm Hg 02/21/2025 Weight 163 lbs 02/21/2025 BMI 26.31 kg/m2 02/21/2025 Encounters Encounter Location Date Provider Diagnosis [facility] [address] [place] [address] 02/21/2025 Oscar Bosomworth Migraine without aura, not intractable, without status migrainosus G43.009 ; Other exterminator termite (current) drug therapy Z79.899 ; Spondylosis without myelopathy or radiculopathy, cervical region M47.812 ; Spondylosis without myelopathy or radiculopathy, lumbar region M47.816 ; Pain in right knee M25.561 and Pain in right lower leg M79.661 [facility] [address] [place] [address] 04/26/2024 Oscar Bosomworth Migraine without aura, not intractable, without status migrainosus G43.009 ; Other exterminator termite (current) drug therapy Z79.899 ; Spondylosis without myelopathy or radiculopathy, cervical region M47.812 ; Spondylosis without myelopathy or radiculopathy, lumbar region M47.816 ; Pain in right knee M25.561 and Pain in right lower leg M79.661 [facility] [address] [place] [address] 06/21/2024 Oscar Bosomworth Migraine without aura, not intractable, without status migrainosus G43.009 ; Other fpc (current) drug therapy Z79.899 ; Spondylosis without myelopathy or radiculopathy, cervical region M47.812 ; Spondylosis without myelopathy or radiculopathy, lumbar region M47.816 ; Pain in right knee M25.561 and Pain in right lower leg M79.661 [facility] [address] [place] [address] 08/23/2024 Oscar Bosomworth Migraine without aura, not intractable, without status migrainosus G43.009 ; Other exterminator termite (current) drug therapy Z79.899 ; Spondylosis without myelopathy or radiculopathy, cervical region M47.812 ; Spondylosis without myelopathy or radiculopathy, lumbar region M47.816 ; Pain in right knee M25.561 and Pain in right lower leg M79.661 [facility] [address] [place] [address] 10/19/2024 Oscar Lewis Migraine without aura, not intractable, without status migrainosus G43.009 ; Other exterminator termite (current) drug therapy Z79.899 ; Spondylosis without myelopathy or radiculopathy, cervical region M47.812 ; Spondylosis without myelopathy or radiculopathy, lumbar region M47.816 ; Pain in right knee M25.561 and Pain in right lower leg M79.661 [facility] [address] [place] [address] 12/23/2024 Oscar Lewis Migraine without aura, not intractable, without status migrainosus G43.009 ; Other fpc (current) drug therapy Z79.899 ; Spondylosis without myelopathy or radiculopathy, cervical region M47.812 ; Spondylosis without myelopathy or radiculopathy, lumbar region M47.816 ; Pain in right knee M25.561 and Pain in right lower leg M79.661 [facility] [address] [place] [address] 04/26/2024 Oscar Lewis Other fpc (current) drug therapy Z79.899 [facility] [address] [place] [address] 06/21/2024 Oscar Lewis Other fpc (current) drug therapy Z79.899 [facility] [address] [place] [address] 08/23/2024 Oscar Lewis Other fpc (current) drug therapy Z79.899 [facility] [address] [place] [address] 10/19/2024 Oscar Lewis Other exterminator termite (current) drug therapy Z79.899 [facility] [address] [place] [address] 12/23/2024 Oscar Leiws Other exterminator termite (current) drug therapy Z79.899 [facility] [address] [place] [address] 02/21/2025 Oscar Lewis Other exterminator termite (current) drug therapy Z79.899 Assessments Encounter Date Diagnosis (ICD Code) Assessment Notes Treatment Notes Treatment Clinical Notes Section Notes 04/26/2024 Other exterminator termite (current) drug therapy (ICD-10 - Z79.899) 06/21/2024 [...] She continues to take flexeril, gabapentin, and [place] with some relief. Denies adverse side effects or recent medical issues. Nhung and UDS reviewed and are compliant. Refills and F/U in 2 months. 06/21/2024 Other exterminator termite (current) drug therapy (ICD-10 - Z79.899) 08/23/2024 [...] She continues to take flexeril, gabapentin, and [place] with some relief. Denies adverse side effects or recent medical issues. Nhung and UDS reviewed and are compliant. Refills and F/U in 2 months. 08/23/2024 Other exterminator termite (current) drug therapy (ICD-10 - Z79.899) 10/19/2024 [...] She continues to take flexeril, gabapentin, and [place] with some relief. Denies adverse side effects or recent medical issues. Nhung and VINCENTS reviewed and are compliant. Refills and F/U in 2 months. 10/19/2024 Other fpc (current) drug therapy (ICD-10 - Z79.899) 12/23/2024 Other fpc (current) drug therapy (ICD-10 - Z79.899) 02/21/2025 [...] She continues to take flexeril, gabapentin, and [place] with some relief. Denies adverse side effects [...] and general movement. She is currently prescribed [place] 7.5/325 mg TID and Gabapentin 600 mg [...] follow up in two months. 02/21/2025 Other exterminator termite (current) drug therapy (ICD-10 - Z79.899) 12/23/2024 [...] She continues to take flexeril, gabapentin, and [place] with some relief. Denies adverse side effects [...] and general movement. She is currently prescribed [place] 7.5/325 mg TID and Gabapentin 600 mg [...] needed, and follow up in two months. 04/26/2024 Migraine without aura, not intractable, without [...] She continues to take flexeril, gabapentin, and [place] with some relief. Denies adverse side effects [...] She continues to take flexeril, gabapentin, and [place] with some relief. Denies adverse side effects or recent medical issues. Nhung and UDS reviewed and are compliant. Refills and F/U in 2 months. 12/23/2024 Other fpc (current) drug therapy (ICD-10 - Z79.899) Primary pain generator is Lumbar Spondylosis, secondary pain generator is Cervical Spondylosis, Lumbar Radiculopathy, Migraine PAYTON's, chronic pain syndrome, thoracic outlet compression syndrome 12/23/2024 1 Refill [place] 7.5/325mg TID 2 Refill GBP 600mg BID [...] She continues to take flexeril, gabapentin, and [place] with some relief. Denies adverse side effects [...] and general movement. She is currently prescribed [place] 7.5/325 mg TID and Gabapentin 600 mg [...] needed, and follow up in two months. 04/26/2024 Other exterminator termite (current) drug therapy (ICD-10 - Z79.899) Primary pain generator is Lumbar Spondylosis, secondary pain generator is Cervical Spondylosis, Lumbar Radiculopathy, Migraine PAYTON's, chronic pain syndrome, thoracic outlet compression syndrome 04/26/24 1 Refill [place] 7.5/325mg TID 2 Refill GBP 600mg BID [...] She continues to take flexeril, gabapentin, and [place] with some relief. Denies adverse side effects or recent medical issues. Nhung and JESUS ALBERTO reviewed and are compliant. Refills and F/U in 2 months. 02/21/2025 Other exterminator termite (current) drug therapy (ICD-10 - Z79.899) Primary pain generator is Lumbar Spondylosis, secondary pain generator is Cervical Spondylosis, Lumbar Radiculopathy, Migraine PAYTON's, chronic pain syndrome, thoracic outlet compression syndrome 02/21/2025 1 Refill [place] 7.5/325mg TID 2 Refill GBP 600mg BID 3 Refill Flexeril 10mg TID 4 F/U 2 months 08/23/2024October presents today for [...] She continues to take flexeril, gabapentin, and [place] with some relief. Denies adverse side effects [...] and general movement. She is currently prescribed [place] 7.5/325 mg TID and Gabapentin 600 mg [...] and follow up in two months. 10/19/2024 Other exterminator termite (current) drug therapy (ICD-10 - Z79.899) Primary pain generator is Lumbar Spondylosis, secondary pain generator is Cervical Spondylosis, Lumbar Radiculopathy, Migraine PAYTON's, chronic pain syndrome, thoracic outlet compression syndrome 08/23/2024 1 Refill [place] 7.5/325mg TID 2 Refill GBP 600mg BID 3 Refill Flexeril 10mg TID 4 Refill Voltaren gel 5 F/U 2 months 08/23/2024 Alicia presents [...] She continues to take flexeril, gabapentin, and [place] with some relief. Denies adverse side effects [...] She continues to take flexeril, gabapentin, and [place] with some relief. Denies adverse side effects or recent medical issues. Nhung and VINCENTS reviewed and are compliant. Refills and F/U in 2 months. 06/21/2024 Other fpc (current) drug therapy (ICD-10 - Z79.899) Primary pain generator is Lumbar Spondylosis, secondary pain generator is Cervical Spondylosis, Lumbar Radiculopathy, Migraine PAYTON's, chronic pain syndrome, thoracic outlet compression syndrome 06/21/2024 1 Refill [place] 7.5/325mg TID 2 Refill GBP 600mg BID [...] She continues to take flexeril, gabapentin, and [place] with some relief. Denies adverse side effects or recent medical issues. Nhung and VINCENTS reviewed and are compliant. Refills and F/U in 2 months. 08/23/2024 Other fpc (current) drug therapy (ICD-10 - Z79.899) Primary pain generator is Lumbar Spondylosis, secondary pain generator is Cervical Spondylosis, Lumbar Radiculopathy, Migraine PAYTON's, chronic pain syndrome, thoracic outlet compression syndrome 08/23/2024 1 Refill [place] 7.5/325mg TID 2 Refill GBP 600mg BID [...] She continues to take flexeril, gabapentin, and [place] with some relief. Denies adverse side effects [...] She continues to take flexeril, gabapentin, and [place] with some relief. Denies adverse side effects [...] She continues to take flexeril, gabapentin, and [place] with some relief. Denies adverse side effects [...] She continues to take flexeril, gabapentin, and [place] with some relief. Denies adverse side effects [...] She continues to take flexeril, gabapentin, and [place] with some relief. Denies adverse side effects or recent medical issues. Nhung and UDS reviewed and are compliant. Refills and F/U in 2 months. 02/21/2025 Spondylosis without myelopathy or radiculopathy, [...] She continues to take flexeril, gabapentin, and [place] with some relief. Denies adverse side effects [...] and general movement. She is currently prescribed [place] 7.5/325 mg TID and Gabapentin 600 mg [...] She continues to take flexeril, gabapentin, and [place] with some relief. Denies adverse side effects [...] and general movement. She is currently prescribed [place] 7.5/325 mg TID and Gabapentin 600 mg [...] needed, and follow up in two months. 04/26/2024 Spondylosis without myelopathy or radiculopathy, [...] She continues to take flexeril, gabapentin, and [place] with some relief. Denies adverse side effects or recent medical issues. Nhung and UDS reviewed and are compliant. Refills and F/U in 2 months. 12/23/2024 Spondylosis without myelopathy or radiculopathy, lumbar region (ICD-10 - M47.816) 08/23/2024 Alicia presents today for follow up [...] She continues to take flexeril, gabapentin, and [place] with some relief. Denies adverse side effects [...] and general movement. She is currently prescribed [place] 7.5/325 mg TID and Gabapentin 600 mg [...] needed, and follow up in two months. 04/26/2024 Pain in right knee (ICD-10 [...] She continues to take flexeril, gabapentin, and [place] with some relief. Denies adverse side effects or recent medical issues. Nhung and JESUS ALBERTO reviewed and are compliant. Refills and F/U in 2 months. 02/21/2025 Spondylosis without myelopathy or radiculopathy, [...] She continues to take flexeril, gabapentin, and [place] with some relief. Denies adverse side effects [...] and general movement. She is currently prescribed [place] 7.5/325 mg TID and Gabapentin 600 mg [...] She continues to take flexeril, gabapentin, and [place] with some relief. Denies adverse side effects [...] She continues to take flexeril, gabapentin, and [place] with some relief. Denies adverse side effects [...] She continues to take flexeril, gabapentin, and [place] with some relief. Denies adverse side effects [...] She continues to take flexeril, gabapentin, and [place] with some relief. Denies adverse side effects [...] She continues to take flexeril, gabapentin, and [place] with some relief. Denies adverse side effects [...] She continues to take flexeril, gabapentin, and [place] with some relief. Denies adverse side effects or recent medical issues. Nhung and VINCENTS reviewed and are compliant. Refills and F/U in 2 months. 02/21/2025 Pain in right knee (ICD-10 [...] She continues to take flexeril, gabapentin, and [place] with some relief. Denies adverse side effects [...] and general movement. She is currently prescribed [place] 7.5/325 mg TID and Gabapentin 600 mg [...] in two months. 12/23/2024 Pain in right knee (ICD-10 [...] She continues to take flexeril, gabapentin, and [place] with some relief. Denies adverse side effects [...] and general movement. She is currently prescribed [place] 7.5/325 mg TID and Gabapentin 600 mg [...] needed, and follow up in two months. 04/26/2024 Pain in right lower leg [...] She continues to take flexeril, gabapentin, and [place] with some relief. Denies adverse side effects or recent medical issues. Nhung and UDS reviewed and are compliant. Refills and F/U in 2 months. 12/23/2024 Pain in right lower leg [...] She continues to take flexeril, gabapentin, and [place] with some relief. Denies adverse side effects [...] and general movement. She is currently prescribed [place] 7.5/325 mg TID and Gabapentin 600 mg [...] She continues to take flexeril, gabapentin, and [place] with some relief. Denies adverse side effects [...] and general movement. She is currently prescribed [place] 7.5/325 mg TID and Gabapentin 600 mg [...] She continues to take flexeril, gabapentin, and [place] with some relief. Denies adverse side effects [...] She continues to take flexeril, gabapentin, and [place] with some relief. Denies adverse side effects [...] She continues to take flexeril, gabapentin, and [place] with some relief. Denies adverse side effects or recent medical issues. Nhung and UDS reviewed and are compliant. Refills and F/U in 2 months. Plan Of Treatment Pending Test Test Name Order Date Urine Test LCMS Definitive 02/21/2025 Next Appt Details Provider Name:Oscar foreman, 04/19/2025 09:45:00 AM, [address], [address], [place], [address], Insurance Providers Payer Name Payer Address Payer Phone Subscriber Number Group Number Insured Name Patient Relationship to Insured Coverage Start Date Coverage End Date [facility] [employer] [facility] [address] [place] [address] [id number] [place] - patient is the insured 9 Medical (General) History Medical History History ICD Code Migraine Headaches -1992 / managed by Dr Baxter HTN -2004 / managed by Deepika VILLASENOR [place] Reflux -1999 / managed by Dr.Karen Skaggs in Depression-1997 / managed by Deepika ALBRECHTPN-[place] Anxiety-1997 / managed by Deepika HOLBROOK-[place] Surgical History Surgery Date(Month/Year) cholecystectomy / [facility] / (OP) 2014 Hysterectomy / [facility] / 4 day s herlinda 2012 LT foot x2 / [facility] / (OP)x2 200 5 Hospitalization History Reason Date(Month/Year)
--- OUTSIDE RECORDS SUMMARY | 2025-03-06 10:39 | XMS_ITS | Encounter Summary ---
Author Organization [facility] yste Address [address] [place] [address] Care Team Providers Care Candy Forming Machine Operator Name Role Phone Deepika Delvalle PEDRITO Primary Care Provider Encounter Details Date Type Department Care Team (Late st Contact Info) Description 11/25/2024 Results Follow-Up [facility] [address] [place] [address] Gemma Catalan MD [address] [place], [place] [id number] Social History Tobacco Use Types Packs/Day Years [...] AM EDT Office Visit [facility] [address] [place] [address] Rajendra Brito MD [address] [place] [address] 11/21/2025 9:30 AM EDT Office Visit [facility] [address] [place] [address] Gemma Catalan MD [address] [facility] [address] [place] [address] documented as of this encounter Goals Goal [...] on filedocumented in this encounter Care Teams Candy Forming Machine Operator Relationship Specialty Start Date End Date Deepika Delvalle APRN [facility] [place] [address] PCP - General 04/03/15 documented as of this encounter
--- OUTSIDE RECORDS SUMMARY | 2025-03-06 10:39 | XMS_ITS ---
Author Organization [facility] Address [address] [place] [address] Care Team Providers Care Gravity Prospecting Supervisor Name Role Phone Deepika Delvalle APRN Primary Care Provider Chronic Migraine Status:Enrolled (Active) Start date:06/10/2021 Enrollment date:06/10/2021 Enrollment reason:Referred by provider Current support & services provided:Clinical Assessment, Refill Coordination , Benefits Investigation, Prior Authorization, Copay Assistance, [facility] Dispensing Linked medications:Galcanezumab-gnlm (Active) Linked problems:Periodic headache syndrome, not intractable (Active) Overview Mail Order I-vent added for Emgality Case Team Name Relationship Phone Rajendra Brito MD Consulting Physician Continued Care and Services Coordination
--- OUTSIDE RECORDS SUMMARY | 2025-03-06 10:39 | XMS_ITS | Encounter Summary ---
Author Organization [facility] yste Address [address] [place] [address] Care Team Providers Care Office Cashier Name Role Phone Mook Deepikapatrica Artis APRN Primary Care Provider Encounter Details Date Type Department Care Team (Late st Contact Info) Description 02/08/2025 Telephone [facility] [address] [place] [address] Gemma Catalan MD [address] [place], [place] [id number] Social History Tobacco Use Types Packs/Day Years [...] Description 10/10/2025 9:30 AM EDT [facility] [address] [place] [address] Rajendra Brito MD [address] [place] [address] 11/21/2025 9:30 AM EDT Office Visit [facility] [address] [place] [address] Gemma Catalan MD [address] [place], [place] [id number] documented as of this encounter Goals Goal [...] on filedocumented in this encounter Care Teams Office Cashier Relationship Specialty Start Date End Date Deepika Delvalle APRN [address] [facility] [place] [address] PCP - General 04/03/15 documented as of this encounter
--- OUTSIDE RECORDS SUMMARY | 2025-03-06 10:40 | XMS_ITS | Referral Summary ---
Author Organization [employer] ([place] Address [address] [place] [address] Care Team Providers Care Precision Instrument Maker And Repairer Name Role Phone Unavailable Primary Care Provider [...] (400 Units total) by mouth. Active rizatriptan (MAXALT-DIESEL TRACTOR OPERATOR) 10 MG disintegrating tablet Take 1 tablet [...] Date Derik rded Speak language other than Macanese at home Not on file 08/07/2023 Want [...] Plan of Treatment Not on file Insurance [facility]
--- OUTSIDE RECORDS SUMMARY | 2025-03-06 10:40 | XMS_ITS | Encounter Summary ---
Author Organization [employer] ([place], [place], [place], [place]) Address [address] [place] [address] Care Team Providers Care Pathology Collector Name Role Phone Unavailable Primary Care Provider Unavailabl e Encounter Details Date Type Department Care Team (Late st Contact Info) Description 01/18/2019 Transcribed Document [facility] [place] [facility] [address] [place] [address] ProviderHerlinda MD [address] [place] [address] Social History Tobacco Use Types Packs/Day Years [...] NEENA /Sex: 1975 Female Med Rec #: [id number] Physician: TOM ANDRES MD-GAE Financial #: [id number] Pt. Type: O Room/Bed: [facility] Admit/Disch: 01/18/19 07:21:00 - Institution: [facility] PreOp Case Times Entry 1 In Preop 01/18/19 07:29:00 Ready for Holding n/a Room Patient Ready for 01/18/19 08:05:00 Surgery Patient Out of Preop 01/18/19 08:05:00 Patient Out of n/a Holding Room [facility] PreOp Case Times Audit 01/18/19 08:05:31 Optical Manufacturing Technician: [id number] Modifier: [id number] <+> 1 Patient Out of Preop <+> 1 Patient Ready for Surgery Finalized By: Sis Alcala RN Document Signatures Signed By: Sis Alcala RN 01/18/19 08:05 documented in this encounter Plan of Treatment Not on file documented as of this encounter Visit Diagnoses Not on filedocumented in this encounter
--- OUTSIDE RECORDS SUMMARY | 2025-03-06 10:40 | XMS_ITS | Encounter Summary ---
Author Organization [employer] ([place], [place], [place], [place]) Address [address] [place] [address] Care Team Providers Care Shift Stacker Name Role Phone Unavailable Primary Care Provider Unavailabl e Encounter Details Date Type Department Care Team (Late st Contact Info) Description 01/18/2019 Transcribed Document [facility] [place] [address] [place] [address] ProviderHerlinda MD [address], [place] [id number] Social History Tobacco Use Types Packs/Day Years [...] Source : Stated Height Entry Format : Evangeline Height, Feet : 5 ft(Converted to: 152 cm, 60 Inch) Height, Inches : 7 Inch(Converted to: 0 ft 7 Inch, 17.78 cm) Clinical Height : 170.18 cm Weight Source : Standing scale Weight Entry Format : Evangeline Clinical Dosing Weight : 69.55 kg Weight, Pounds : 153 lb Body Surface Area (BSA) : 1.81 m2 Body Mass Index : 24 kg/m2 [place] Body Weight : 61 kg Sis Alcala [...] Melvin Name/Contact Info Physician Notified Adm : [phone] Emergency Contact #1 : Ria Melvin Emergency Contact #1 Emergency Contact #1 Relationship : mother Emergency Contact #2 : na Emergency Contact #2 Phone Number : na Emergency Contact #2 Relationship : na Primary Language : Portuguese Preferred Communication Mode : Verbal Communication Barrier [...] Scale Risk Level : 0-24 Low Risk [place]ford Fall Interventions : Bed in low position, [...]
--- OUTSIDE RECORDS SUMMARY | 2025-03-06 10:40 | XMS_ITS | Encounter Summary ---
Author Organization Healthcare Address [address] [place] [address] Care Team Providers Care Newscast Director Name Role Phone Deepika Delvalle APRN Primary Care Provider [phone] Encounter Details Date Type Department Care Team [...] place to sleep or slept in a mcfp (including now)? No 05/03/2024 PHQ-9 Answer Date [...] any time in the past 12 m [facility], were you homeless or living in a mcfp (including now)? No 12/07/2024 Utilities Answer Date Recorded In the past 12 months has e [email or web address], gas, oil, or water company threatened to [...] documented as of this encounter Care Teams Newscast Director Relationship Specialty Start Date End Date Deepika Delvalle APRN [address] [place] [phone] PCP - General 11/30/20 documented as of this encounter
--- OUTSIDE RECORDS SUMMARY | 2025-03-06 10:40 | XMS_ITS | Encounter Summary ---
Author Organization [employer] ([place], [place], [place], [place]) Address [address] [place] [address] Care Team Providers Care Aluminum Can Collector Name Role Phone Unavailable Primary Care Provider Unavailabl e Encounter Details Date Type Department Care Team (Late st Contact Info) Description 01/18/[address] [facility] [place] [facility] [place] [address] ProviderHerlinda MD [address] [place] [id number] Social History Tobacco Use Types Packs/Day Years [...] times a day. General instructions ??? Take ltcn-qri-ofvksrp and prescription medicines only as told by [...] 07/03/2001 Document Revised: 12/03/2016 Document Reviewed: 03/19/2016 [employer] Interactive Patient Education ? 2019 Personal [employer]. Radiology Colonoscopy, Adult, Care After This sheet [...] slower pace than normal. ? Eat soft, kylc-uy-fxbryw foods. ? Rest often. ??? Take wbfg-ltj-foecyon or prescription medicines only as told by [...] 09/16/2016 Elsevier Interactive Patient Education ? 2018 [employer] documented in this encounter Plan of Treatment Not on file documented as of this encounter Visit Diagnoses Not on filedocumented in this encounter
--- OUTSIDE RECORDS SUMMARY | 2025-03-06 10:40 | XMS_ITS | Encounter Summary ---
Author Organization [employer] ([place], [place], [place], [place]) Address [address] [place] [address] Care Team Providers Care Emergency Room Clinician Name Role Phone Unavailable Primary Care Provider Unavailabl e Encounter Details Date Type Department Care Team (Late st Contact Info) Description 01/18/2019 Transcribed Document [facility] [place] [address] [place] [address] ProviderHerlinda MD [address] [place] [id number] Social History Tobacco Use Types Packs/Day Years Used Date Smoking Tobacco: Never Assessed Comments Unknown Sex and Gender Information Value Date Recorded Sex Assigned at Not on file Legal Sex Female 3:43 PM CDT Gender Identity Not on file Sexual Orientation Not on file documented as of this encounter Miscellaneous Notes * Cerner Conversion Note - Historical ProviderMD - 01/18/2019 9:23 AM CDT [address] [address] VINCENT OCTOBER NEENA :1975 Visit [...] MD-GAE When Within As needed Where: [address] [facility] [address] [place] [address]- Medications What How Much When Instructions Next [...] times a day. General instructions ??? Take gwko-dhf-pipkvvx and prescription medicines only as told by [...] 07/03/2001 Document Revised: 12/03/2016 Document Reviewed: 03/19/2016 [employer] Interactive Patient Education ?? 2019 [employer]. Colonoscopy, Adult, Care After This sheet gives [...] slower pace than normal. ? Eat soft, wqyn-mi-tlcfep foods. ? Rest often. ??? Take hkjr-sre-sgbabhl or prescription medicines only as told by [...] 02/17/2005 Document Revised: 03/30/2017 Document Reviewed: 09/16/2016 [employer] Interactive Patient Education ?? 2018 [employer]. Emergency Awareness and Preventative Care STROKE is [...] Assistance with quitting is available by contacting 1-043-LGGW-NOW. This is a free resource providing counseling, [...] was given the opportunity to ask questions. Patient/Rn Trauma Name: Patient/Rn Trauma Signature: Relationship to Patient: Clinician/Hospital Rn Trauma Signature: Date: documented in this encounter Plan of Treatment Not on file documented as of this encounter Visit Diagnoses Not on filedocumented in this encounter
--- OUTSIDE RECORDS SUMMARY | 2025-03-06 10:40 | XMS_ITS | Encounter Summary ---
Author Organization [employer] ([place], [place], [place], [place]) Address [address] [place] [address] Care Team Providers Care Resident Associate Name Role Phone Unavailable Primary Care Provider Unavailabl e Encounter Details Date Type Department Care Team (Late st Contact Info) Description 01/18/2019 Transcribed Document [facility] [place] Family Medicine [address] [place] [address] ProviderHerlinda MD [address] [place] [address] Social History Tobacco Use Types Packs/Day Years [...] NEENA /Sex: 1975 Female Med Rec #: [id number] Physician: TOM ANDRES MD-GAE Financial #: [id number] Pt. Type: O [place]/Bed[place] [facility] Admit/Disch: 01/18/19 07:21:00 - Institution: [facility] - Case Attendance Entry 1 Entry 2 Entry 3 Case Attendee CRUMPCRICKET HARVEY CARLY, NICOLETTE VILLANUEVA MD-GAE Role Performed Surgeon/Proceduralist, HOG MAN/Nurse Junk Dealer Scrub, First First Time In 01/18/19 08:22:00 01/18/19 08:22:00 01/18/19 08:22:00 Time Out 01/18/19 08:58:00 01/18/19 08:58:00 01/18/19 08:58:00 Procedure Colonoscopy Colonoscopy Colonoscopy Other Attendee Superficial Wound Closed By: Last Modified By: JERSEY HOLLAND, RN JERESY HOLLAND, JERSEY GARRETT, RN 01/18/19 08:57:38 01/18/19 08:57:38 01/18/19 08:57:38 Entry 4 Case Attendee JERSEY HOLLAND RN Role Performed Research Development Director, First Time In 01/18/19 08:22:00 Time Out 01/18/19 08:58:00 Procedure Colonoscopy Other Attendee Superficial Wound Closed By: Last Modified By: JERSEY HOLLAND, RL 01/18/19 08:57:38 [facility] - Case Attendance Audit 01/18/19 08:57:38 Site Safety Manager: KULCKA Modifier: KULCKA 1 <+> Time In 1 <+> Time Out 1 <*> Procedure Colonoscopy 2 <+> Time In 2 <+> Time Out 2 <*> Procedure Colonoscopy 3 <+> Time In 3 <+> Time Out 3 <*> Procedure Colonoscopy 4 <+> Time In 4 <+> Time Out 4 <*> Procedure Colonoscopy 01/18/19 07:47:32 Site Safety Manager: KULCKA Modifier: KULCKA <+> 1 Procedure 2 [...] Endo - Case Times Audit 01/18/19 08:57:35 Site Safety Manager: KULCKA Modifier: KULCKA <+> 1 Out Room Time 01/18/19 08:56:29 Site Safety Manager: KULCKA Modifier: KULCKA <+> 1 Stop Time <+> 1 Stop Time 01/18/19 08:49:13 Site Safety Manager: KULCKA Modifier: KULCKA <+> 1 Start Time 01/18/19 08:30:03 Site Safety Manager: KULCKA Modifier: KULCKA <+> 1 Anesthesia Ready [facility] - Delays Entry 1 Delay Reason Other Duration 0 Minute(s) Comment NO DELAY Last Modified By: JERSEY HOLLAND RN 01/18/19 07:45:03 [facility] - Departure from OR Entry 1 Integumentary Assessment Integumentary WDL Assessment WDL Transfer/Handoff Transfer to PACU Phase I Post-op Transport Stretcher/Gurney Via Patient Transport JERSEY HOLLAND, Accompanied by RN, SAIED HARLEY CRNA Last Modified By: JERSEY HOLLAND [...] 01/18/19 07:45:34 [facility] - General Case Body Liner 1 Case Information OR Endo 02 [facility] Case Level 1 Room Verified Yes Wound Class III - Contaminated Specialty SN Gastroenterology Anesthesia Type MAC ASA Class 2 Diagnosis Preop Diagnosis Z86.010 Postop Same As Preop No Postop Diagnosis hemorrhoids Last Modified By: JERSEY HOLLAND RN 01/18/19 08:24:57 [facility] - General Case Data Audit 01/18/19 08:56:57 Site Safety Manager: PAWAN Modifier: KULCKA <+> 1 Postop Diagnosis 01/18/19 08:24:57 Site Safety Manager: PAWAN Modifier: KULCKA <+> 1 ASA Class [...] Endo - Intraoperative Equipment Audit 01/18/19 07:46:59 Site Safety Manager: PAWAN Modifier: KULCKA <+> 1 Photo <+> 1 Video <+> 1 Blood Pressure Location <+> 1 Pulse Oximeter Probe Site <+> 1 Flexible Endoscopes Used <+> 1 Scope Serial Number/Identification Number [facility] [place] - Patient Positioning Entry 1 Procedure [...] Endo - Surgical Procedures Audit 01/18/19 08:57:08 Site Safety Manager: SUBHALCYADIEL Modifier: KULCKA <+> 1 Stop 01/18/19 08:49:49 Site Safety Manager: SUBHALCKA Modifier: KULCKA 1 <*> Procedure Colonoscopy [...] RN 01/18/19 08:58 Electronically signed by Dave [facility] Conversion Education Program Manager Cerner at 11/07/2022 1:36 PM CDT documented in this encounter Plan of Treatment Not on file documented as of this encounter Visit Diagnoses Not on filedocumented in this encounter
--- OUTSIDE RECORDS SUMMARY | 2025-03-06 10:40 | XMS_ITS | Clinical Summary ---
Author Organization [facility] Address [facility] [place] [address] Care Team Providers Care Electro Optical Engineer Name Role Phone Unavailable Primary Care Provider [...] therelease of HIV test results or diagnoses. [id number] Active Problems Problem Noted Date Diagnosed [...]
--- OUTSIDE RECORDS SUMMARY | 2025-03-06 10:40 | XMS_ITS | Encounter Summary ---
Author Organization [employer] ([place], [place], [place], [place]) Address [address] [place] [address] Care Team Providers Care Expanding Machine Operator Name Role Phone Unavailable Primary Care Provider Unavailabl e Reason for Visit * Reason Comments Medication Refill Encounter Details Date Type Department Care Team (Late st Contact Info) Description 02/06/2023 Refill [facility] Gastroenterology [address] [facility] [address] [place] [address] Amanda Reaves, SENIOR RECRUITER [address] [place] [address] Social History Tobacco Use Types [...]
--- OUTSIDE RECORDS SUMMARY | 2025-03-06 10:40 | XMS_ITS | Encounter Summary ---
Author Organization [employer] ([place], [place], [place], [place]) Address [address] [place] [address] Care Team Providers Care Storage Facility Rental Clerk Name Role Phone Unavailable Primary Care Provider Unavailabl e Encounter Details Date Type Department Care Team (Late st Contact Info) Description 01/18/2019 Transcribed Document [facility] [place] [address] [place] [address] ProviderHerlinda MD [address] [place] [address] Social History Tobacco Use Types Packs/Day Years [...] NEENA /Sex: 1975 Female Med Rec #: [id number] Physician: TOM ANDRES MD-GAE Financial #: [id number] Pt. Type: O Room/Bed: [facility] [place]/ Admit/Disch: 01/18/19 07:21:00 - Institution: [facility] PACU Case Times Entry 1 In PACU I 01/18/19 09:01:00 Ready for PACU 01/18/19 09:35:00 Discharge Discharge from PACU 01/18/19 09:35:00 [facility] PACU Case Times Audit 01/18/19 09:35:23 Family Program Specialist: ROMETASHAAMISH Modifier: ROMEKNEA <+> 1 Ready for PACU Discharge <+> 1 Discharge from PACU I Finalized By: Suzan Alvarez RN Document Signatures Signed By: Suzan Alvarez RN 01/18/19 09:35 documented in this encounter Plan of Treatment Not on file documented as of this encounter Visit Diagnoses Not on filedocumented in this encounter
--- OUTSIDE RECORDS SUMMARY | 2025-03-06 10:40 | XMS_ITS | Encounter Summary ---
Author Organization Healthcare Address [address] [place] [address] Care Team Providers Care Cook Enchilada Name Role Phone Deepika Delvalle APRN Primary Care Provider [phone] Reason for Visit * Reason Onset Date Comments HCN Clinical Concern/Question 02/08/2025 Encounter Details Date Type Department Care Team (Late st Contact Info) Description 02/08/2025 Telephone [facility] [address] [place] [address] Deepika Delvalle APRN [address] [place] [address] HCN Clinical Concern/Question Social History [...] place to sleep or slept in a retirement (including now)? No 05/03/2024 PHQ-9 Answer Date [...] any time in the past 12 m [facility], were you homeless or living in a retirement (including now)? No 12/07/2024 Utilities Answer Date [...] have to contact the main lab at [place] to get the labs. * Telephone Encounter - Brian Sanchezcorrina Ramos - 02/08/2025 2:29 PM EDT Clinical Concern/Question Reason for Call: patient asking that recent lab results be faxed to Gemma Catalan- roll skinner that ordered the labs at #[phone].Thanks! Best contact number: [phone] (home) Optimal time of day to reach caller: ANYTIME Additional comments/information from caller: None Note: Please do not reply to this message. Follow-up communication and further actions as a result of this message need to be communicated with the patient directly, if the patient is not active onMyChart. If the patient is active on MyChart, they will receive notification of the communication/outcome via [employer]. documented in this encounter Plan of Treatment [...] documented as of this encounter Care Teams Cook Enchilada Relationship Specialty Start Date End Date Deepika Delvalle APRN [address] [place] [address] PCP - General 11/30/20 documented as of this encounter
--- OUTSIDE RECORDS SUMMARY | 2025-03-06 10:40 | XMS_ITS | Encounter Summary ---
[facility] Address [address] [place] [address] Care Team Providers Care Line O Scribe Operator Name Role Phone Deepika Delvalle PEDRITO Primary Care Provider Reason for Visit * Reason Onset Date Comments Labs Only 02/08/2025 Encounter Details Date Type Department Care Team (Late st Contact Info) Description 02/08/[address] [facility] ENDOCRINOLOGY [address] [place] [phone] Gemma Catalan MD [address] [place] [address] Labs Only Social History Tobacco [...] to patient: Self Best call back number: [phone] Patient is needing: PT HAD LAB ORDERS FAXED TO [facility] AND LABS WERE COMPLETED . PER [facility] OUR OFFICE NEEDS TO CALL THEM AT [phone]. ONCE CALLING [facility] THEY WILL FAX LAB RESULTS TO US.PT ASKED FOR A CALL BACK ONCE RESULTS HAVE BEEN RECEIVED. documented in this encounter Plan of Treatment Upcoming Encounters Date Type Department Care Team (Late st Contact Info) Description 10/10/2025 9:30 AM EDT Office Visit [facility] NEUROLOGY [address] [place] [address] Rajendra Brito MD [address] [place] [address] 11/21/2025 9:30 AM EDT Office Visit [facility] MEDICAL [facility] ENDOCRINOLOGY [address] [place] [phone] Gemma Catalan MD [address] [place] [address] documented as of this encounter Goals Goal [...] on filedocumented in this encounter Care Teams Line O Scribe Operator Relationship Specialty Start Date End Date Deepika Delvalle APRN [address] [place] [address] PCP - General 04/03/15 documented as of this encounter
--- OUTSIDE RECORDS SUMMARY | 2025-03-06 10:40 | XMS_ITS | Encounter Summary ---
Author Organization [employer] ([place], [place], [place], [place]) Address [address] [place] [address] Care Team Providers Care Sewer System Supervisor Name Role Phone Unavailable Primary Care Provider Unavailabl e Reason for Visit * Reason Comments Medication Refill Encounter Details Date Type Department Care Team (Late st Contact Info) Description 04/17/2024 Refill [facility] Gastroenterology [address] [facility] [address] [place] [address] Amanda Reaves, TECHNICAL EXPERT [address] [place] [address] Gastroesophageal reflux disease without esophagitis [...] Date Derik rded Speak language other than German at home Not on file 08/07/2023 Want [...]
--- OUTSIDE RECORDS SUMMARY | 2025-03-06 10:40 | XMS_ITS | Encounter Summary ---
Author Organization Healthcare Address [address] [place] [address] Care Team Providers Care Material Assembler Name Role Phone Deepika Delvalle APRN Primary Care Provider [phone] Encounter Details Date Type Department Care Team (Late st Contact Info) Description 12/07/2024 Results [facility] [address] [place] [address] Deepika Delvalle APRN [address] [place] [address] Social History Tobacco Use Types [...] place to sleep or slept in a fpc (including now)? No 05/03/2024 PHQ-9 Answer Date [...] time in the past 12 m [facility], were you homeless or living in a fpc (including now)? No 12/07/2024 Utilities Answer Date Recorded In the past 12 months has th e [employer], gas, oil, or water [employer] threatened to shut off services in your [...] documented as of this encounter Care Teams Material Assembler Relationship Specialty Start Date End Date Deepika Delvalle APRN [address] [place] [phone] PCP - General 11/30/20 documented as of this encounter
--- OUTSIDE RECORDS SUMMARY | 2025-03-06 10:40 | XMS_ITS | Encounter Summary ---
[facility] Address [address] [place] [address] Care Team Providers Care Seafood And Service Meat Manager Name Role Phone Deepika Delvalle PEDRITO Primary Care Provider Reason for Visit * Reason Onset Date Comments Med Refill 05/22/2023 Encounter Details Date Type Department Care Team (Late st Contact Info) Description 05/22/2023 Refill [facility] NEUROLOGY [address] [facility] [address] [place] [address] Rajendra Brito MD [address] [facility] [address] [place] [address] Social History Tobacco Use Types [...] October Relationship: Self Best call back number: [phone] Requested Prescriptions: Requested Prescriptions Pending Prescriptions Disp Refills galcanezumab-gnlm (EMGALITY) 120 MG/ML auto-injector pen 1 mL 11 Sig: Inject 1 mL under the skin into the appropriate area as directed Every 28 (Twenty-Eight) Days. Pharmacy where request should be sent: [facility] Last office visit with prescribing clinician: [...] Description 10/10/2025 9:30 AM EDT Office Visit [facility] NEUROLOGY [address] [place] [address] Rajendra Brito MD [address] [place] [address] 11/21/2025 9:30 AM EDT Office Visit [facility] ENDOCRINOLOGY [address] [facility] [address] [place] [phone] Gemma Catalan MD [address] [facility] [address] [place] [address] documented as of this encounter Goals Goal [...] on filedocumented in this encounter Care Teams Seafood And Service Meat Manager Relationship Specialty Start Date End Date Deepika Delvalle APRN [address] [place] [address] PCP - General 04/03/15 documented as of this encounter
--- OUTSIDE RECORDS SUMMARY | 2025-03-06 10:40 | XMS_ITS | Encounter Summary ---
Author Organization [employer] ([place], [place], [place], [place]) Address [address] [place] [address] Care Team Providers Care Principal Biostatistician Name Role Phone Unavailable Primary Care Provider Unavailabl e Encounter Details Date Type Department Care Team (Late st Contact Info) Description 01/18/2019 Transcribed Document [facility] [place] [facility] [place] [address] ProviderHerlinda MD [address] [place] [address] Social History Tobacco Use Types Packs/Day Years [...] Medical History: Active GERD (gastroesophageal reflux disease) ([id number]) Headache, migraine (52218409) Back spasm (391483650) Tarsal tunnel syndrome (36424721) Plantar fasciitis (180656667) Thoracic outlet syndrome (503196221) HTN (hypertension) (7527339344) Depression (55737536) Anxiety (82615714) Resolved Endometriosis (6460706234): Resolved. Procedure history: Hysterectomy. Foot surgery x 2. Exploratory Lap. Cyst removal from the side. Cholecystectomy (31041309). Social History Social & Psychosocial Habits Alcohol [...] Problems Thoracic outlet syndrome / SNOMED CT 323677719 / Confirmed Tarsal tunnel syndrome / SNOMED CT 63204186 / Confirmed Back spasm / SNOMED CT 119045853 / Confirmed Muscle spasm of both lower legs / SNOMED CT 44524431 / Confirmed Plantar fasciitis / SNOMED CT 619809255 / Confirmed Headache, migraine / SNOMED CT 68562306 / Confirmed HTN (hypertension) / SNOMED CT 5601478507 / Confirmed GERD (gastroesophageal reflux disease) / SNOMED CT [id number] / Confirmed Depression / SNOMED CT 99465791 / Confirmed CHronic Back Pain / SNOMED CT 227849154 / Confirmed Anxiety / SNOMED CT 39228930 / Confirmed Resolved: Endometriosis / SNOMED CT 0775139448 Canceled: Diarrhea / SNOMED CT 334710232 Review of Systems Constitutional: No fever, No [...] EDT Height Source Stated Height Entry Format [place] Height/Length, [place] (ft) 5 ft Height/Length [place] 7 Inch CLINICALHEIGHT 170.18 cm [place] Body Weight 61 kg Weight Source Standing scale Weight Entry Format [place] Weight Qatari lb 153 lb CLINICALWEIGHT 69.55 kg Body [...] No tenderness, No deformity. Integumentary: Warm, Dry, [place], No rash. Integumentary exam: Face, Chest, Arm, [...] colon poyps. No family h/o colon cancer. documented in this encounter Plan of Treatment Not on file documented as of this encounter Visit Diagnoses Not on filedocumented in this encounter
--- OUTSIDE RECORDS SUMMARY | 2025-03-06 10:40 | XMS_ITS | Clinical Summary ---
[facility] Address [address] [place] [address] Care Team Providers Care Bessemer Bottom Maker Name Role Phone Deepika Delvalle APRN Primary [...] Take 1 tablet by mouth. Active rizatriptan IT SALES EXECUTIVE (MAXALT-IT SALES EXECUTIVE) 10 MG disintegrating tabletIndications :Periodic headache syndrome, [...] Assessment & Plan (10/10/2024 9:44 AM EDT): PATYON controlled Emgality 120 mg sq q 4 [...] Type Department Care Team Description 02/08/2025 Telephone [facility] ENDOCRINOLOGY [address] [facility] [facility] [address] [place] [address] Gemma Catalan MD Labs Only 02/08/2025 Telephone [facility] ENDOCRINOLOGY [address] [facility] [facility] [address] [place] [address] Gemma Catalan MD from Last [...] Description 10/10/2025 9:30 AM EDT Office Visit [facility] NEUROLOGY [address] [place] [phone] Rajendra Brito MD [address] [place] [address] 11/21/2025 9:30 AM EDT Office Visit [facility] ENDOCRINOLOGY [address] [place] [address] Gemma Catalan MD [address] [place] [address] Health Maintenance Due Date Last Done Comments [...] from daily to about 2 weekly Insurance [facility] Care Teams Bessemer Bottom Maker Relationship Specialty Start Date End Date Deepika Delvalle APRN [address] [place] [id number] PCP - General 04/03/15
--- OUTSIDE RECORDS SUMMARY | 2025-03-06 10:40 | XMS_ITS | Encounter Summary ---
Author Organization [employer] ([place], [place], [place], [place]) Address [address] [place] [address] Care Team Providers Care Box Machine Operator Name Role Phone Unavailable Primary Care Provider Unavailabl e Encounter Details Date Type Department Care Team (Late st Contact Info) Description 01/18/2019 Transcribed Document [facility] [address] [place] [address] ProviderHerlinda MD [address] [place] [address] [id number] Social History Tobacco Use Types Packs/Day Years Used Date Smoking Tobacco: Never Assessed Comments Unknown Sex and Gender Information Value Date Recorded Sex Assigned at Not on file Legal Sex Female 3:43 PM CDT Gender Identity Not on file Sexual Orientation Not on file documented as of this encounter Miscellaneous Notes * Cerner Conversion Note - Historical ProviderMD - 01/18/2019 9:25 AM CDT [address] [address] VINCENT OCTOBER NEENA :1975 Visit [...] MD-GAE When Within As needed Where: [address] [facility] [address] [place] [address]- Medications What How Much When Instructions Next [...] times a day. General instructions ??? Take nluf-pnz-sxoafkm and prescription medicines only as told by [...] 07/03/2001 Document Revised: 12/03/2016 Document Reviewed: 03/19/2016 [employer] Patient Education ?? 2019 [employer] Colonoscopy, Adult, Care After This sheet gives [...] slower pace than normal. ? Eat soft, ecyr-kd-hakuri foods. ? Rest often. ??? Take qvjo-opd-ufncrcs or prescription medicines only as told by [...] 02/17/2005 Document Revised: 03/30/2017 Document Reviewed: 09/16/2016 [employer] Patient Education ?? 2018 [employer] Emergency Awareness and Preventative Care STROKE is [...] Assistance with quitting is available by contacting 5-465-DJNT-NOW. This is a free resource providing counseling, [...] was given the opportunity to ask questions. Patient/Licensing Manager Name: Patient/Licensing Manager Signature: Relationship to Patient: Clinician/Hospital Licensing Manager Signature: Date: documented in this encounter Plan of Treatment Not on file documented as of this encounter Visit Diagnoses Not on filedocumented in this encounter
--- OUTSIDE RECORDS SUMMARY | 2025-03-06 10:40 | XMS_ITS | Clinical Summary ---
Author Organization Healthcare Address [address] [place] [address] Care Team Providers Care Coal Shooter Name Role Phone DelvalleDeepika smith APRN Primary Care Provider [phone] Allergies Active Allergy Reactions Criticality Noted Date Comments Naproxen Sodium Other - please docum ent in the comment field Low 10/08/2022 Naproxen Unknown - Patient st ates they do not know rxn details Low 03/12/2021 Medications HYDROcodone-acetam inophen (V[place]) 7.5-325 MG tablet TAKE 1 TABLET 3 [...] 2 (two) times a day. Active rizatriptan TAGMAN (Maxalt-TAGMAN) 10 MG disintegrating tablet Take 1 tablet [...] Type Department Care Team Description 02/08/2025 Telephone [facility] [address] [address] Deepika Delvalle APRN HCN Clinical Concern/Question 01/10/2025 Travel 12/07/2024 9:00 AM EDT Office Visit [facility] [address] [address] Deepika Delvalle APRN Lumbosacral spondylosis without myelopathy (Primary Dx); Acute left-sided low back pain with left-sided sciatica; Numbness and tingling 12/07/2024 Results Follow-Up [facility] [address] [phone] Deepika Delvalle APRN 12/07/2024 Travel from Last [...] place to sleep or slept in a half-way (including now)? No 05/03/2024 PHQ-9 Answer Date [...] were you homeless or living in a half-way (including now)? No 12/07/2024 Utilities Answer Date Recorded In the past 12 months has th e [employer], gas, oil, or water Social 2 Step threatened to shut off services in your [...] C Screening 1975 [facility]-Infant/Child/Adol SDOH Screenings 1975 [id number]-07 Vaccine (#1) 02/21/1980 [facility]-DTaP,Tdap,and Td Vaccines (1 [...] - 4.20 uIU/mL 01/10/2025 6:33 PM EDT [facility] Blood Venous blood specimen / Unknown Venipuncture / Unknown 01/10/2025 2:57 PM EDT 01/10/2025 2:57 PM EDT Narrative [facility] - 01/10/2025 6:33 PM EDT Trimester Specific Ranges TSH ( IU/mL) 1st Trimester 0.1 - 3.0 2nd Trimester 0.19 - 4.06 3rd Trimester 0.3 - 3.7 Gemma Catalan MD LAB BLOOD ORDERABLES Final Resul t Performing Organization Address City/[facility]/ZIP Co de Phone Number [facility] [address] [place] [address] * Vitamin D 25 Hydroxy (12/07/2024 9:33 AM EDT) Vitamin D 25 Hydroxy 21.3 20.0 - 80.0 ng/mL 12/07/2024 3:[address] [facility] Blood Venous blood specimen / Unknown Venipuncture / Unknown 12/07/2024 9:33 AM EDT 12/07/2024 9:33 AM EDT Narrative [facility] - 12/07/2024 3:13 PM EDT Testing performed on [employer] Research Assistant, standardized against NIST SRM 2972. When [...] BLOOD ORDERABLES Final Result Performing Organization Address City/[facility]/ZIP Co de Phone Number [facility] [address] [place] [address] * CBC and Differential (12/07/2024 9:33 AM EDT) WBC Count 6.09 3.70 - 10.30 10*3/uL LAB HEMATOLOGY METHOD 12/07/2024 2:20 PM EDT [facility] RBC Count 4.56 3.90 - 5.20 10*6/uL LAB HEMATOLOGY METHOD 12/07/2024 2:20 PM EDT [facility] HGB 13.1 11.2 - 15.7 g/dL LAB HEMATOLOGY METHOD 12/07/2024 2:20 PM EDT [facility] HCT 40.5 34.0 - 45.0 % LAB HEMATOLOGY METHOD 12/07/2024 2:20 PM EDT [facility] Platelet Count 225 155 - 369 10*3/uL LAB HEMATOLOGY METHOD 12/07/2024 2:20 PM EDT [facility] MCV 89 79 - 98 fL LAB HEMATOLOGY METHOD 12/07/2024 2:20 PM EDT [facility] MCH 28.7 26.0 - 32.0 pg LAB HEMATOLOGY METHOD 12/07/2024 2:20 PM EDT [facility] MCHC 32.3 30.7 - 35.5 g/dL LAB HEMATOLOGY METHOD 12/07/2024 2:20 PM EDT [facility] RDW 12.7 11.5 - 14.5 % LAB HEMATOLOGY METHOD 12/07/2024 2:20 PM EDT [facility] MPV 10.9 8.8 - 12.5 fL LAB HEMATOLOGY METHOD 12/07/2024 2:20 PM EDT [facility] nRBC 0.0 <=0.0 per 100 WBCs LAB HEMATOLOGY METHOD 12/07/2024 2:20 PM EDT [facility] Differential Type Automated LAB HEMATOLOGY METHOD 12/07/2024 2:20 PM EDT [facility] Neutrophils % 49 % LAB HEMATOLOGY METHOD 12/07/2024 2:20 PM EDT [facility] Lymphocytes % 39 % LAB HEMATOLOGY METHOD 12/07/2024 2:20 PM EDT [facility] Monocytes % 9 % LAB HEMATOLOGY METHOD 12/07/2024 2:20 PM EDT [facility] Eosinophils % 2 % LAB HEMATOLOGY METHOD 12/07/2024 2:20 PM EDT [facility] Basophils % 1 % LAB HEMATOLOGY METHOD 12/07/2024 2:20 PM EDT [facility] Immature Granulocytes % 0 % LAB HEMATOLOGY METHOD 12/07/2024 2:20 PM EDT [facility] Neutrophils Absolute 3.02 1.60 - 6.10 10*3/uL LAB HEMATOLOGY METHOD 12/07/2024 2:20 PM EDT [facility] Lymphocytes Absolute 2.37 1.20 - 3.90 10*3/uL LAB HEMATOLOGY METHOD 12/07/2024 2:20 PM EDT [facility] Monocytes Absolute 0.53 0.30 - 0.90 10*3/uL LAB HEMATOLOGY METHOD 12/07/2024 2:20 PM EDT [facility] Eosinophils Absolute 0.12 0.00 - 0.50 10*3/uL LAB HEMATOLOGY METHOD 12/07/2024 2:20 PM EDT [facility] Basophils Absolute 0.03 0.00 - 0.10 10*3/uL LAB HEMATOLOGY METHOD 12/07/2024 2:20 PM EDT [facility] Immature Granulocytes Absolute 0.02 0.00 - 0.06 10*3/uL LAB HEMATOLOGY METHOD 12/07/2024 2:20 PM EDT [facility] Blood Venous blood specimen / Unknown Venipuncture / Unknown 12/07/2024 9:33 AM EDT 12/07/2024 9:33 AM EDT Narrative [facility] - 12/07/2024 2:20 PM EDT Therapeutic decision making should be based on absolute values, rather than percentages. Deepika [email or web address] COMMUNITY HEALTH SPECIALIST LAB BLOOD ORDERABLES Final Result Performing Organization Address City/[facility] Co de Phone Number [facility] [address] [place] [address] * Magnesium, Plasma (12/07/2024 9:33 AM EDT) Magnesium, Plasma 2.0 1.9 - 2.4 mg/dL 12/07/2024 2:59 PM EDT [facility] Blood Venous blood specimen / Unknown Venipuncture / Unknown 12/07/2024 9:33 AM EDT 12/07/2024 9:33 AM EDT [employer] COMMUNITY HEALTH SPECIALIST LAB BLOOD ORDERABLES Final Result Performing Organization Address City/[facility]/ZIP Co de Phone Number [facility] [address] [place] [address] * Ferritin (12/07/2024 9:33 AM EDT) Ferritin, Serum 65 13 - 150 ng/mL 12/07/2024 3:02 PM EDT [facility] Blood Venous blood specimen / Unknown Venipuncture / Unknown 12/07/2024 9:33 AM EDT 12/07/2024 9:33 AM EDT Deepika Delvalle COMMUNITY HEALTH SPECIALIST LAB BLOOD ORDERABLES Final Result [facility] [address] [place] [address] * (ABNORMAL) Vitamin B12, Serum (12/07/2024 9:33 AM EDT) Pathologist [facility] Vitamin B12, Serum >2,000(H) 210 - 1,033 pg/mL 12/07/2024 3:02 PM EDT [facility] Blood Venous blood specimen / Unknown Venipuncture / Unknown 12/07/2024 9:33 AM EDT 12/07/2024 9:33 AM EDT [facility] BLOOD ORDERABLES Final Result [facility] [address] [place] [address] * (ABNORMAL) Comprehensive Metabolic Panel, Plasma (12/07/2024 9:33 AM EDT) [facility] Signature Glucose, Plasma 99 74 - 99 mg/dL 12/07/2024 2:59 PM EDT [facility] BUN, Plasma 13 7 - 21 mg/dL 12/07/2024 2:59 PM EDT [facility] Creatinine, Plasma 0.86 0.60 - 1.10 mg/dL 12/07/2024 2:59 PM EDT [facility] BUN/Creatinine Ratio 15 12/07/2024 2:59 PM EDT [facility] Sodium, Plasma 142 136 - 145 mmol/L 12/07/2024 2:59 PM EDT [facility] Potassium, Plasma 4.4 3.6 - 4.9 mmol/L 12/07/2024 2:59 PM EDT [facility] Chloride, Plasma 105 97 - 107 mmol/L 12/07/2024 2:59 PM EDT [facility] CO2, Plasma 27 22 - 29 mmol/L 12/07/2024 2:59 PM EDT [facility] Anion Gap 10 6 - 16 mmol/L 12/07/2024 2:59 PM EDT [facility] Total Calcium, Plasma 9.3 8.9 - 10.2 mg/dL 12/07/2024 2:59 PM EDT [facility] Total Protein 6.7 6.3 - 7.9 g/dL 12/07/2024 2:59 PM EDT [facility] Albumin, Plasma 4.4 3.5 - 5.2 g/dL 12/07/2024 2:59 PM EDT [facility] AST, Plasma 22 10 - 35 U/L 12/07/2024 2:59 PM EDT [facility] ALT, Plasma 23 10 - 35 U/L 12/07/2024 2:59 PM EDT [facility] Alkaline Phosphatase, Plasma 112(H) 35 - 104 U/L 12/07/2024 2:59 PM EDT [facility] Total Bilirubin, Plasma 0.9 0.2 - 1.1 mg/dL 12/07/2024 2:59 PM EDT [facility] eGFRcr 82.9 mL/min/1.7 3m*2 12/07/2024 2:59 PM EDT [facility] Comment:Reported eGFRcr in m L/min/1.73m2 is based the CKD-EPI 2020 equation that does not use a race coefficient. Blood Venous blood specimen / Unknown Venipuncture / Unknown 12/07/2024 9:33 AM EDT 12/07/2024 9:33 AM EDT us Deepika Delvalle COMMUNITY HEALTH SPECIALIST LAB BLOOD ORDERABLES Final Result [facility] [address] [place] [address] * COLONOSCOPY EXTERNAL RESULT (01/18/2019) Anatomical Region Laterality Modality Endoscopy Narrative 01/18/2019 Ordered by an unspecified provider. us External Provider GI PROCEDURE ORDERABLES Final Result from Last 3 Months or Most Recently Relevant to Health Maintenance Insurance [employer] Care Teams Coal Shooter Relationship Specialty Start Date End Date Deepika Delvalle APRN [address] [place] [address] PCP - General 11/30/20
--- OUTSIDE RECORDS SUMMARY | 2025-03-06 10:40 | XMS_ITS | Clinical Summary ---
Author Organization [employer] ([place], [place], [place], [place]) Address [address] [place] [address] Care Team Providers Care Lineman Service Or Work Dispatcher Name Role Phone Unavailable Primary Care Provider [...] (400 Units total) by mouth. Active rizatriptan (MAXALT-MATERIALS HANDLING EQUIPMENT OPERATOR) 10 MG disintegrating tablet Take 1 [...] Date Derik rded Speak language other than Cypriot at home Not on file 08/07/2023 Want [...] 2) 2025 Influenza Vaccine (#1) 2025 Insurance [facility] [employer]
--- NOTE | 2025-03-06 15:06 | EXP.DC.SUM ---
General Admission date:: 03/04/25 HPI HPI HPI: This is a 50-year-old female that presents to [facility] emergency department with concerns of diarrhea for greater than 1 week not resolving with [id number] Imodium care. She reports recent courses of clindamycin from her dentist. She describes her diarrhea as [place] stool type VII with no associated melena, hematochezia or mucus strands. She describes tenesmus prior to bowel elimination but no crescendo abdominal pain. She characterizes her abdominal pain as cramping and is located across her lower quadrants. She has identified no associated fever, chills, rashes, dysuria or gross hematuria. She reports nausea and loss of appetite but no overt emesis. She describes decreased p.o. intake over the past 3 to 4 days. She is able to keep liquids down. Her ED evaluation identified tachycardia, tachypnea, leukocytosis and lactic acidosis. She received IV fluid resuscitation and IV antibiotic therapy with stool studies sent for evaluation. Hospital medicine was asked to admit the patient. Shared decision-making has occurred and the patient is amenable to admission to the hospital. Hospital Course Hospital Course Hospital Course: Alicia Kaur is a 58-year-old female who presented with intractable diarrhea for the past weeks in the setting of clindamycin and was admitted for severe sepsis secondary to C difficile colitis. #Severe sepsis #C. difficile colitis ? Clinically improved with oral vancomycin. Initial WBC 28, improved to 15. Tachycardia resolved. ? Tolerating p.o. intake without nausea/vomiting, does have mild abdominal discomfort with food but tolerable per patient. Encouraged to advance diet as tolerated. ? Discharged with oral vancomycin 125 mg every 6 hours for 8 more days. Will follow-up with PCP within 1 week. #Hypertension ? Continue home amlodipine 5 mg. #Hypothyroidism ? Continue home levothyroxine 75 mcg. Exam Data for Last 24 hours Vital signs and Labs for Last 24 Hours: Temp Pulse Resp BP Pulse Ox O2 Del Method 98.5 F 92 H 18 131/60 97 Room Air 03/06/25 08:00 03/06/25 08:00 03/06/25 08:00 03/06/25 08:00 03/06/25 08:15 03/06/25 13:10 Laboratory Results - last 24 hr 03/05/25 : A. baumannii (PCR) Not detected, Bacteroides fragilis Not detected, Siena albicans (PCR) Not detected, Siena auris (PCR) Not detected, C. glabrata (PCR) Not detected, C. krusei (PCR) Not detected, C. parapsilosis (PCR) Not detected, C. tropicalis (PCR) Not detected, Cryptococcus neoformans PCR Not detected, Enterobacterales (PCR) Not detected, Enterococc faecalis PCR Not detected, Enterococc faecium PCR Not detected, E. coli (PCR) Not detected, H. influenzae DNA Not detected, Klebsiella aerogenes (PCR) Not detected, Klebsiella oxytoca PCR Not detected, K. pneumoniae group (PCR) Not detected, List. monocytogenes PCR Not detected, N. meningitidis (PCR) Not detected, Proteus species (PCR) Not detected, Salmonella spp. (PCR) Not detected, Serratia marcescens PCR Not detected, Staphylococcus sp PCR Detected, Staph aureus (PCR) Not detected, mecA/C & MREJ Resist Gene Not applicable, mecA/C-Methicil Resis Gene Detected, Staph epidermidis (PCR) Detected, Staph lugdunensis (TEM-PCR) Not detected, S. maltophilia (PCR) Not detected, Streptococcus sp PCR Not detected, S.agalactiae Grp B EDITH Not detected, Strep pneumoniae (PCR) Not detected, S. pyogenes GrpA EDITH Not detected, P. aeruginosa (PCR) Not detected, Mehdi/B-Vanco Res Genes Not applicable, blaIMP Car res Gene PCR Not applicable, KPC-Carbap Res Gene PCR Not applicable, blaNDM Car Res Gene PCR Not applicable, OXA-48 Carbapenem Resis Gene (PCR) Not applicable, blaVIM Car Res Gene PCR Not applicable, CTX-M Gene Resistance (PCR) Not applicable, MCR-1 Resistance Gene Not applicable 03/06/25 06:21: WBC 15.2 H, RBC 3.82 L, Hgb 11.3 L D, Hct 33.4 L, MCV 87.4, MCH 29.6, MCHC 33.8, RDW 13.1, Plt Count 183, MPV 10.5 H, Neut % (Auto) 71.8, Lymph % (Auto) 16.2, [place] % (Auto) 8.6, Eos % (Auto) 2.2, Baso % (Auto) 0.3, Neut # (Auto) 10.9 H, Lymph # (Auto) 2.5, [place] # (Auto) 1.3 H, Eos # (Auto) 0.3, Baso # (Auto) 0.1, Sodium 132 L, Potassium 3.8, Chloride 101, Carbon Dioxide 29, Anion Gap 5.8, BUN 11, Creatinine 0.80, Estimated Creat Clear 95, Estimated GFR 76, Est GFR ( Amer) 92, Glucose 83 D, Calcium 7.7 L, Magnesium 1.8, Total Bilirubin 0.4, AST 22 D, ALT 26, Alkaline Phosphatase 73, Total Protein 4.6 L D, Albumin 2.6 L, Globulin 2.0, Albumin/Globulin Ratio 1.3 I & O for Last 24 hours: Intake & Output 03/03/25 03/04/25 03/05/25 03/06/25 23:59 23:59 23:59 23:59 Intake Total 680 / 1180 1620 / 1620 Output Total 0 / 0 0 / 0 0 / 0 Balance 0 / 500 680 / 1180 1620 / 1620 Weight 68.039 kg 68.039 kg 71.668 kg Microbiology Reports for the Last 24 Hours: Microbiology 03/04/25 14:40 Blood Blood Culture - Preliminary Gram Positive Cocci 03/04/25 13:53 Urine,Clean Catch Urine Culture - Preliminary 03/04/25 15:01 Blood Blood Culture - Preliminary NO GROWTH AFTER 24 HOURS Constitutional Constitutional: no acute distress *Routine HEENT Exam Head: Present normocephalic Eye: Present EOMI and PERRL ENT: Present mucous membranes moist *Routine Neck Exam Neck: Present supple; Absent lymphadenopathy *Routine Respiratory Exam Respiratory: Present CTA bilaterally *Routine Cardiovascular Exam Cardiovascular: Present RRR *Routine Abdominal Exam Abdominal: Present soft and tenderness; Absent normoactive bowel sounds Comments: Hypoactive bowel sounds. No peritoneal signs. *Routine Extremities Exam Extremities: Absent cyanosis, clubbing or edema *Routine Skin Exam Skin: Present warm; Absent rash *Routine Neurological Exam Neurological: Present alert and oriented X3 Results Data Completed and Pending Labs on day of discharge: Labs from last 24 hours 03/06/25 03/05/25 06:21 Unknown WBC 15.2 H RBC 3.82 L Hgb 11.3 L D Hct 33.4 L MCV 87.4 MCH 29.6 MCHC 33.8 RDW 13.1 Plt Count 183 MPV 10.5 H Neut % (Auto) 71.8 Lymph % (Auto) 16.2 [place] % (Auto) 8.6 Eos % (Auto) 2.2 Baso % (Auto) 0.3 Neut # (Auto) 10.9 H Lymph # (Auto) 2.5 [place] # (Auto) 1.3 H Eos # (Auto) 0.3 Baso # (Auto) 0.1 Sodium 132 L Potassium 3.8 Chloride 101 Carbon Dioxide 29 Anion Gap 5.8 BUN 11 Creatinine 0.80 Estimated Creat Clear 95 Estimated GFR 76 Est GFR ( Amer) 92 Glucose 83 D Calcium 7.7 L Magnesium 1.8 Total Bilirubin 0.4 AST 22 D ALT 26 Alkaline Phosphatase 73 Total Protein 4.6 L D Albumin 2.6 L Globulin 2.0 Albumin/Globulin Ratio 1.3 A. baumannii (PCR) Not detected Bacteroides fragilis Not detected Siena albicans (PCR) Not detected Siena auris (PCR) Not detected C. glabrata (PCR) Not detected C. krusei (PCR) Not detected C. parapsilosis (PCR) Not detected C. tropicalis (PCR) Not detected Cryptococcus neoformans PCR Not detected Enterobacterales (PCR) Not detected Enterococc faecalis PCR Not detected Enterococc faecium PCR Not detected E. coli (PCR) Not detected H. influenzae DNA Not detected Klebsiella aerogenes (PCR) Not detected Klebsiella oxytoca PCR Not detected K. pneumoniae group (PCR) Not detected List. monocytogenes PCR Not detected N. meningitidis (PCR) Not detected Proteus species (PCR) Not detected Salmonella spp. (PCR) Not detected Serratia marcescens PCR Not detected Staphylococcus sp PCR Detected Staph aureus (PCR) Not detected mecA/C & MREJ Resist Gene Not applicable mecA/C-Methicil Resis Gene Detected Staph epidermidis (PCR) Detected Staph lugdunensis (TEM-PCR) Not detected S. maltophilia (PCR) Not detected Streptococcus sp PCR Not detected S.agalactiae Grp B EDITH Not detected Strep pneumoniae (PCR) Not detected S. pyogenes GrpA EDITH Not detected P. aeruginosa (PCR) Not detected Mehdi/B-Vanco Res Genes Not applicable blaIMP Car res Gene PCR Not applicable KPC-Carbap Res Gene PCR Not applicable blaNDM Car Res Gene PCR Not applicable OXA-48 Carbapenem Resis Gene (PCR) Not applicable blaVIM Car Res Gene PCR Not applicable CTX-M Gene Resistance (PCR) Not applicable MCR-1 Resistance Gene Not applicable Preliminary micro results at discharge 03/04/25 14:40 Blood Culture - Preliminary Blood Gram Positive Cocci 03/04/25 13:53 Urine Culture - Preliminary Urine,Clean Catch 03/04/25 15:01 Blood Culture - Preliminary Blood NO GROWTH AFTER 24 HOURS DS: Diagnosis Discharge Diagnosis (1) Severe sepsis with acute organ dysfunction: Status: Acute Code(s): A41.9 - Sepsis, unspecified organism; R65.20 - Severe sepsis without septic shock (2) Colitis: Status: Acute Code(s): K52.9 - Noninfective gastroenteritis and colitis, unspecified (3) Hypertension: Status: Chronic Code(s): I10 - Essential (primary) hypertension (4) Hypothyroidism: Status: Acute Code(s): E03.9 - Hypothyroidism, unspecified (5) C. difficile colitis: Status: Acute Code(s): A04.72 - Enterocolitis due to Clostridium difficile, not specified as recurrent Meds Home Medications and Allergies Home Medications ?Medication ?Instructions ?Recorded ?Confirmed ?Type amlodipine 5 mg tablet 5 mg PO DAILY 02/28/25 03/05/25 History gabapentin 600 mg tablet 600 mg PO BID 02/28/25 03/05/25 History hydrocodone 7.5 mg-acetaminophen 1 tab PO TIDP PRN back pain 02/28/25 03/05/25 History 325 mg tablet levothyroxine 75 mcg capsule 75 mcg PO DAILYDM 02/28/25 03/05/25 History vitamin E (dl, acetate) 180 mg 180 mg PO BID 02/28/25 03/05/25 History (400 unit) capsule cyclobenzaprine 10 mg tablet 10 mg PO TID 03/05/25 03/05/25 History galcanezumab-gnlm 120 mg/mL 120 mg SQ MONTHLY 03/05/25 03/05/25 History subcutaneous pen injector (Emgality Pen) vancomycin 50 mg/mL oral solution 125 mg (2.5 mL) PO QID 9 days 03/06/25 Rx (Firvanq) #82.5 mL New Prescriptions to Start Prescriptions: vancomycin [Firvanq] Tim Cho Allergies Allergy/AdvReac Type Severity Reaction Status Date / Time naproxen Allergy Verified 02/28/25 11:38 Discharge Plan Disposition Patient Disposition: Home, Self-Care Condition: Fair Discharge Order Discharge Orders: Discharge Order (Routine); Ordered 03/06/25 Ordered By: Tim Cho Follow up Plan Follow up with: Deepika Delvalle [Primary Care Provider, Medical] - 03/15/25 10:00 am Prescriptions/Medication Reconciliation: New vancomycin [Firvanq] 50 mg/mL Recon Soln 125 mg PO QID 9 Days Qty: 82.5 0RF Continued gabapentin 600 mg tablet 600 mg PO BID hydrocodone-acetaminophen 7.5-325 mg tablet 1 tab PO TIDP PRN (Reason: back pain ) vitamin E (dl, acetate) 180 mg (400 unit) capsule 180 mg PO BID levothyroxine 75 mcg capsule 75 mcg PO DAILYDM amlodipine 5 mg tablet 5 mg PO DAILY cyclobenzaprine 10 mg tablet 10 mg PO TID Patient Comments: TAKE 1 TABLET BY MOUTH 3 TIMES A DAY Emgality Pen 120 mg/mL pen injector 120 mg SQ MONTHLY Discontinued loperamide [Anti-Diarrheal (loperamide)] 2 mg capsule 2 mg PO QIDP PRN (Reason: Diarrhea) Problem Reconciliation Problems Reviewed?: Yes Patient Discharge Instructions Additional Instructions: Take antidiarrheals until antibiotic course is finished. Taking antidiarrheals will slow the improvement of C. difficile infection. Patient Instructions: DI for Sepsis -- Adult, Stop Light Infection Print Language: Jordanian Providers Primary Care Provider: Deepika Delvalle Admit Provider: Tim Cho Attending Provider: Tim Cho
--- NOTE | 2025-03-07 10:15 | SW/DCPLANNER ---
Spoke with patient on the phone. Patient stated that she is doing about the same as she was in the hospital. Patient stated that she is aware of her upcoming appointment. Patient stated that she was able to get her medicine. Patient stated that she has no concerns or questions at this time. Catalina Urrutia
--- NOTE | 2025-03-08 08:39 | PC.NURSE ---
pts prelim blood culture and final urine culture forwarded to the hospitalist as she was admitted.
== END 2025-03-06 16:55 | disposition home or self-care (01) | DRG 872 ==
LOC: ER 16:16 → 2ND 16:25
PROVIDERS: Family Medicine; Student in an Organized Health Care Education/Training Program; Admitting Provider Student in an Organized Health Care Education/Training Program; Emergency Provider Student in an Organized Health Care Education/Training Program; PCP Nurse Practitioner Family; Visit Provider Student in an Organized Health Care Education/Training Program
DX: A41.89 Other specified sepsis (principal); A04.72 Enterocolitis due to Clostridium difficile, not specified as recurrent; E87.20 Acidosis, unspecified; I10 Essential (primary) hypertension; R65.20 Severe sepsis without septic shock; K52.9 Noninfective gastroenteritis and colitis, unspecified; E03.9 Hypothyroidism, unspecified; Z79.890 Hormone replacement therapy; Z79.899 Other long term (current) drug therapy; Z88.6 Allergy status to analgesic agent
CPT/HCPCS: 36415; 74177; 80048; 80053; 81001; 83605; 83690; 83735; 84703; 85007; 85025; 86803; 87040; 87077; 87086; 87088; 87154; 87186; 87389; 87506; 93005; J1171; J1650; J1836; J2270; J2405; J3475; J7120; Q9967